=== PATIENT | female | born 1935 | race Caucasian/White ===

== ENCOUNTER 2020-12-25 11:44 | Outpatient (REF) | payer MEDICARE, SELFPAY ==
--- NOTE | ~2020-12-25 | XR_ITS ---
EXAMINATION: XR HIP, RIGHT CLINICAL INFORMATION: Pain in right hip COMPARISON: None TECHNIQUE: Two views of the right hip. FINDINGS: Mild right acetabular sclerosis. Mild axial joint space narrowing. No fracture or dislocation. There is degenerative arthrosis of the pubic symphysis. Vascular calcifications are present. There is spurring and sclerosis of the right sacroiliac joint. XR/XR hip RT min 2V IMPRESSION: No acute osseous abnormality. Degenerative changes as described above.
== END 2020-12-25 11:45 | disposition home or self-care (01) ==
LOC: HO.HMGCX 11:44
PROVIDERS: PCP Internal Medicine; Visit Provider Internal Medicine
DX: M25.551 Pain in right hip (principal)
CPT/HCPCS: 73502

== ENCOUNTER 2021-01-12 14:00 | Emergency (ER) | payer MEDICARE, SELFPAY ==
--- NOTE | ~2021-01-12 | XR_ITS ---
EXAMINATION: XR HIP, LEFT CLINICAL INFORMATION: Unable to bear weight, left hip pain. COMPARISON: 12/25/2020 TECHNIQUE: Two views of the left hip. FINDINGS: Bones and soft tissues are normal. No fracture. Alignment is anatomic. Hip joint space shows mild osteoarthritis. Moderate stool is seen in the colon. XR/XR hip LT min 2V IMPRESSION: 1. Mild osteoarthritis. No acute fracture. 2. Moderate colonic stool burden.
[2021-01-12 14:14] VITALS: BP 145/67; BP 146/70; PULSE 92; PULSE 96; RESP 18; TEMP 36.4; O2SAT 97; O2SAT 98; BMI 784.3
[2021-01-12] MEDS: Lidocaine 4 % Patch ADH..PATCH 1 PATCH TRANSDERMA (15:38)
--- NOTE | 2021-01-12 16:56 | ED_ITS ---
HPI - General Adult General Chief complaint: General Medical Stated complaint: HIP PAIN,NO KNOWN INJURY,PT NONVERBAL Time Seen by Provider: 01/12/21 14:27 Source: patient and family Mode of arrival: ambulatory Limitations: other (Deaf mute) History of Present Illness HPI narrative: Patient comes to emergency room accompanied by her daughter. Patient is deaf mute, states she does not want an contract specialist, would like her daughter to interpret. Patient is complaining of left-sided hip pain for the last 2 days. Patient states as long as she does not bear weight, it does not hurt. At this time since she is sitting, states it does not hurt. Towards the end of December, patient had a similar episode on the right hip, x-rays were negative, pain improved with ibuprofen. However, this time patient is not improving with ibuprofen. The daughter states that patient is not allowed to take Tylenol because patient had an accidental overdose of Tylenol but last year. Patient denies fever or chills, no redness or joint swelling MD complaint: Left hip pain Related Data Home Medications Medication Instructions Recorded Confirmed alendronate 70 mg tablet 70 mg PO QWEEK 12/25/20 amlodipine 10 mg tablet 10 mg PO DAILY 12/25/20 enalapril maleate 20 mg tablet 20 mg PO BID 12/25/20 levothyroxine 88 mcg tablet 88 mcg PO DAILY 12/25/20 Previous Rx's Medication Instructions Recorded lidocaine 5 % topical patch 1 patch TOPICAL DAILY #30 ea 12/25/20 tramadol 50 mg PO Q8H PRN #10 tab 01/12/21 Allergies Allergy/AdvReac Type Severity Reaction Status Date / Time No Known Allergies Allergy Verified 01/12/21 14:14 [No Known Allergies*] Review of Systems Review of Systems: Constitutional : No Weight loss, No Fever, No Chills, No Night Sweats, No Fatigue, No Malaise ENT/Mouth : No Hearing loss, No Ear Pain, No Nasal Congestion, No Sinus Pain, No Hoarseness, No sore throat, No Rhinorrhea, No Swallowing Difficulty Eyes: No Eye Pain, No Swelling, No Redness, No Foreign Body, No Discharge, No Vision Changes Cardiovascular : No Chest Pain, No SOB, No Dyspnea on Exertion, No Orthopnea, No Edema, No Palpitations Respiratory : No Cough, No Sputum, No Wheezing, No Smoke Exposure, No Dyspnea Gastrointestinal : No Nausea, No Vomiting, No Diarrhea, No Constipation, No abdominal Pain, No Hematochezia, No Melena Genitourinary : no irregular bleeding, No Dysuria, No Urinary Frequency, No Hematuria, No Urinary Incontinence, No Urgency, No Flank Pain, No Urinary Flow Changes, No Hesitancy Musculoskeletal : Complaining of left hip pain, No Myalgias, No Joint Swelling Skin : No Skin Lesions, No rash Neuro : No Weakness, No Numbness, No Paresthesias, No Loss of Consciousness, No Dizziness, No Headache Psych : No Anxiety/Panic, No Depression, No SI/HI/AH/VH, No Social Issues, Heme/Lymph: No Bruising, No Bleeding,No Lymphadenopathy Endocrine : No Polyuria, No Polydipsia, No Temperature Intolerance [facility] Past Medical History Medical History Acquired hypothyroidism Dyslipidemia Essential hypertension Osteoporosis Right hip pain Surgical History History of hernia repair History of hysterectomy Family History Family History Father Myocardial infarction CVD (cardiovascular disease) Mother Unknown family medical history Son No problems noted. Son No problems noted. Daughter No problems noted. Social History Social History Alcohol intake: never Smoking Status: Never smoker Advance Directives: No Advance Directives Information Provided: Yes Physical Exam Vital Signs: Vital Signs: Last Vital Signs Temp 97.6 F 01/12/21 14:14 Pulse 96 01/12/21 14:14 Resp 18 01/12/21 14:14 BP 145/67 H 01/12/21 14:14 Pulse Ox 98 01/12/21 14:14 Body Mass Index 784.3 Appearance: Alert. Oriented X3. No acute distress. Eyes: Pupils equal, round and reactive to light. ENT: Pharynx normal. Neck: Normal inspection. Neck supple. No lymph nodes noted. No crepitus CVS: Normal heart rate and rhythm. Pulses normal. Normal S1 and S2 Respiratory: No respiratory distress. Breath sounds normal. No Wheezing. No rales Abdomen: Soft and nontender. No rigidity. No distention. good BS x4 Skin: Skin warm and dry. Normal skin color. Normal skin turgor. Extremities: Chronic +3 pitting edema, no changes from baseline. Patient is able to flex and extend hip, knees, ankles, no pain with rotation at the hip. Pain is reproducible only when standing. Neuro: Oriented X 3. No motor deficit. No sensory deficit. Moving all extermities. No slurred speech. Course Course Course Narrative: I discussed with the patient her x-ray, no fracture. Case Management/PT services offered, declined by patient and her daughter, patient s tates that she would like to go home, patient feeling better since the Lidoderm patch was applied. Patient was given the option of trying tramadol which she accepted Medical Decision Making Imaging Data Hip x-ray: Radiologist's impression: Bones and soft tissues are normal. No fracture. Alignment is anatomic. Hip joint space shows mild osteoarthritis. Moderate stool is seen in the colon. XR/XR hip LT min 2V IMPRESSION: 1. Mild osteoarthritis. No acute fracture. 2. Moderate colonic stool burden. Discharge Plan Discharge Clinical Impression: Osteoarthritis Qualifiers: Osteoarthritis location: hip Osteoarthritis type: unspecified Laterality: left Qualified Code(s): M16.12 - Unilateral primary osteoarthritis, left hip Patient Disposition: Home, Self-Care Instructions: Osteoarthritis (ED), Hip Pain (ED) Additional Instructions: Please follow-up with your primary care physician tomorrow. If you have any worsening or new symptoms, please return to the emergency room or call 911 Prescriptions: New tramadol 50 mg tablet 50 mg PO Q8H PRN (Reason: pain) Qty: 10 RF: 0 No Action amlodipine 10 mg tablet 10 mg PO DAILY RF: 0 levothyroxine 88 mcg tablet 88 mcg PO DAILY RF: 0 alendronate 70 mg tablet 70 mg PO QWEEK RF: 0 enalapril maleate 20 mg tablet 20 mg PO BID RF: 0 lidocaine 5 % adhesive patch,medicated 1 patch topical DAILY Qty: 30 RF: 0
--- NOTE | 2021-01-12 17:15 | PC.NURSE ---
ambuklatory to br with walker. rn assisting with change in position to standing. stable with walker.
[2021-01-12] MEDS: traMADoL HCL 50 MG TABLET PO (18:08)
[2021-01-12 19:31] VITALS: BP 135/60; PULSE 90; RESP 18; TEMP 36.1; O2SAT 98
== END 2021-01-12 19:32 | disposition home or self-care (01) ==
PROVIDERS: Emergency Provider Emergency Medicine
DX: M16.12 Unilateral primary osteoarthritis, left hip (principal); M25.552 Pain in left hip; Z79.899 Other long term (current) drug therapy
CPT/HCPCS: 73502; 99283; 99284

== ENCOUNTER 2021-01-15 02:17 | Inpatient (IN) | payer MEDICARE, SELFPAY ==
[2021-01-15] VITALS (9 sets, daily range): BP systolic 125–178; BP diastolic 56–84; PULSE 99–111; RESP 15–19; TEMP 36–36.8; O2SAT 93–98; BMI 22.1
--- NOTE | ~2021-01-15 | FL_ITS ---
EXAMINATION: XR FLUOROSCOPY WITH IMAGES CLINICAL INFORMATION: Right hip fracture COMPARISON: None. TECHNIQUE: Fluoroscopy performed by Dr. Carlos Alberto Mai. Fluoroscopy time: 2 minutes DAP: 0.461 mGycm2 Images: 4 FINDINGS: Fluoroscopic imaging guidance made available for a procedure. Four fluoroscopic matrix views are available for review. These images show intramedullary nail and screw placement of the right proximal femur. FL/FL guidance in OR IMPRESSION: Imaging guidance for procedure. For detail regarding procedure and findings please refer to the operative report.
--- NOTE | ~2021-01-15 | US_ITS ---
EXAMINATION: US VENOUS ULTRASOUND WITH DOPPLER LOWER EXTREMITY, BILATERAL CLINICAL INFORMATION: Status post surgery. Rule out DVT. COMPARISON: None TECHNIQUE: Ultrasound of the deep veins is performed from the hip to the calf with compression sonography and color and pulse Doppler assessment. Spectral analysis with color-flow imaging is performed. FINDINGS: RIGHT: There is normal venous compression and respiratory variation and augmented flow. The visualized common femoral vein, superficial femoral vein, profunda femoral vein, popliteal vein, and the trifurcation region shows no evidence of deep venous thrombosis. There is no significant popliteal fossa cyst. No popliteal artery aneurysm. LEFT: There is normal venous compression and respiratory variation and augmented flow. The visualized common femoral vein, superficial femoral vein, profunda femoral vein, popliteal vein, and the trifurcation region shows no evidence of deep venous thrombosis. There is no significant popliteal fossa cyst. No popliteal artery aneurysm. If the patient's symptoms persist, followup ultrasound in 5 days 7 days might be of value to exclude proximal propagation from a non-visualized calf vein. US/US venous duplex LE BI IMPRESSION: No acute DVT demonstrated in the bilateral lower extremities.
--- NOTE | ~2021-01-15 | XR_ITS ---
EXAMINATION: XR RIGHT HIP WITH AP PELVIS CLINICAL INFORMATION: Fall, shortened and externally rotated, pain COMPARISON: 01/12/2021- TECHNIQUE: AP view of the pelvis and a single view of the right hip were obtained. FINDINGS: There is a mildly displaced comminuted intertrochanteric fracture of the right proximal femur with slight varus angulation, new as compared to prior. No additional fractures are identified. Bones are osteopenic. 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 These bony spurring is present at the anterior superior iliac spines as well as the greater trochanters. Phleboliths are present in the pelvis. No acute soft tissue abnormalities. XR/XR hip RT w PEL1V IMPRESSION: Intertrochanteric fracture of the right proximal femur with mild varus angulation.
--- NOTE | ~2021-01-15 | CT_ITS ---
EXAMINATION: CT ANGIOGRAM OF THE CHEST WITH AND WITHOUT CONTRAST (CT PULMONARY ANGIOGRAM FOR PE) CLINICAL INFORMATION: Reason for Exam tachy post surgery; r/o PE COMPARISON: None TECHNIQUE: Prior to contrast administration, noncontrast localization images were obtained. Subsequently, multidetector volumetric imaging was performed from the thoracic inlet to below the diaphragms following the administration of 65 mL Omnipaque 350 intravenous contrast. No contrast reaction reported Sagittal, coronal, and MIP oblique sagittal reformatted images were obtained on the CT workstation, uploaded to PACS, and reviewed. This CT examination was performed using dose optimization techniques as appropriate, variously including the following: *Automated exposure control *Adjustment of mA and/or kV according to patient size (this includes techniques or standardized protocols for targeted exams where dose is matched to indication/reason for exam; i.e. extremities or head) *Use of iterative reconstruction technique Total exam dose-length product 232 mGy-cm FINDINGS: QUALITY OF STUDY/CONTRAST BOLUS: Satisfactory. PULMONARY ARTERIES: No central or segmental pulmonary emboli. THORACIC AORTA: No aneurysm or dissection. Calcific atherosclerosis is present in the thoracic aorta. LUNG: No focal consolidation, nodules or masses. Mild dependent atelectasis. As seen on image 183/[id number] of series 8, there is a round 9 mm filling defect within the right upper lobe bronchus which is of uncertain etiology. Central airways are otherwise clear. PLEURA: No pleural effusion or pneumothorax. MEDIASTINUM: Normal heart size. Calcific atherosclerosis is present in the coronary arteries. There is calcification at the mitral valve annulus. No pericardial effusion. No hilar or mediastinal lymphadenopathy. No evidence of septal bowing or right heart strain. CHEST WALL/AXILLA: No axillary or internal mammary lymphadenopathy. OSSEOUS STRUCTURES: Multiple vertebral body compression fractures are present in the thoracic spine, most notably at the inferior endplate of T7 and superior endplate of T8. The superior endplate compression fracture at T12 appears unchanged as compared to prior. Bones are osteopenic. No acute rib fractures. UPPER ABDOMEN: Left parapelvic renal cyst. No acute upper abdominal abnormalities. No reflux of contrast into the hepatic veins to suggest elevated right heart pressures. CT/CT angio chest PE protocol IMPRESSION: 1. No evidence of pulmonary emboli. No acute pulmonary findings are identified. Minimal dependent atelectasis. 2. A 9 mm dense rounded structure is present within the bronchus to the right upper lobe just distal to the bifurcation. This is of uncertain etiology. A rounded focus of mucus, a rounded foreign body, or a primary endoluminal lesion could all have this appearance. Recommend bronchoscopy. 3. Multiple compression fractures in the thoracic spine which appear acute. VTE: negative
--- NOTE | ~2021-01-15 | XR_ITS ---
EXAMINATION: XR CHEST CLINICAL INFORMATION: Cough COMPARISON: Chest radiograph dated 08/03/2010 TECHNIQUE: Frontal view of the chest was obtained. FINDINGS: Lungs are clear. No consolidation, pneumothorax, or pleural effusion. Cardiomediastinal contour is normal. Pulmonary vasculature is normal. Degenerative spondylosis is present in the thoracic spine with chronic appearing compression deformities. Bones are osteopenic. Old healed fracture is present at the left proximal humerus. Osteoarthritis is present in the acromioclavicular and glenohumeral joints. XR/XR chest 1V IMPRESSION: No acute pulmonary findings.
--- NOTE | 2021-01-15 02:40 | ECG_ITS ---
Test Reason : FALL Blood Pressure : / mmHG Vent. Rate : 102 BPM Atrial Rate : 102 BPM P-R Int : 000 ms QRS Dur : 062 ms QT Int : 332 ms P-R-T Axes : 000 -18 046 degrees QTc Int : 432 ms Normal sinus rhythm with frequent Premature atrial complexes Cannot rule out Anterior infarct , age undetermined Abnormal ECG When compared with ECG of 09-SEP-2017 13:08, Criteria for Inferior infarct are no longer Present Referred By: Kera He Electronically Signed By:KAREN ALEXANDER MD
--- NOTE | 2021-01-15 02:49 | ED.FALL ---
HPI - Fall General Chief Complaint: Fall Stated Complaint: fall/r hip pain Time Seen by Provider: 01/15/21 02:39 Source: patient Mode of arrival: EMS History of Present Illness HPI Narrative: This is an 85-year-old female with past medical history of hypertension, hypothyroid, osteoporosis and deafness who presents via EMS after stain and a mechanical fall whereby the patient states she slipped in some urine. She denies hitting her head or loss of consciousness but landed on her bottom. Her grandson who was present came in and attempted to assist the patient to a standing position, however she was having pain. Patient denies any recent fevers, chills, dizziness, nausea, vomiting, shortness of breath or chest pain. She only reports pain at the right hip. Awaiting ASL Related Data Home Medications Medication Instructions Recorded Confirmed alendronate 70 mg tablet 70 mg PO QWEEK 12/25/20 01/15/21 amlodipine 10 mg tablet 10 mg PO DAILY 12/25/20 01/15/21 enalapril maleate 20 mg tablet 20 mg PO BID 12/25/20 01/15/21 levothyroxine 88 mcg tablet 88 mcg PO DAILY 12/25/20 01/15/21 tramadol 50 mg PO Q8H PRN 01/15/21 01/15/21 Previous Rx's Medication Instructions Recorded nabumetone 500 mg tablet 500 mg PO BID PRN #14 tab 01/14/21 Allergies Allergy/AdvReac Type Severity Reaction Status Date / Time No Known Allergies Allergy Verified 01/12/21 14:14 [No Known Allergies*] Review of Systems Review of Systems: Pertinent positives and negatives as stated in HPI 10 point review of systems is otherwise negative. [facility] Past Medical History Source: nursing notes reviewed Medical History Acquired hypothyroidism Dyslipidemia Essential hypertension Osteoporosis Right hip pain Surgical History History of hernia repair History of hysterectomy Family History Family History Father Myocardial infarction CVD (cardiovascular disease) Mother Unknown family medical history Son No problems noted. Son No problems noted. Daughter No problems noted. Social History Social History Alcohol intake: never Smoking Status: Never smoker Advance Directives: No Physical Exam Vital Signs: Vital Signs: Last Vital Signs Temp 98.3 F 01/15/21 02:23 Pulse 106 H 01/15/21 04:00 Resp 18 01/15/21 04:00 BP 148/70 H 01/15/21 04:00 Pulse Ox 93 01/15/21 04:00 Body Mass Index 22.1 VITAL SIGNS: Reviewed. GENERAL: Well developed, well nourished, in no acute distress. HEAD: Normocephalic/atraumatic EYES: PERRLA, EOMI intact without pain, no nystagmus OROPHARYNX: no oral lesions noted, posterior pharynx clear NECK: Supple, no adenopathy LUNGS: Normal breath sounds. No adventitious sounds or accessory muscle use. SpO2<95> CARDIOVASCULAR: Regular rate and rhythm without noted murmurs ABDOMEN: Soft, non-tender, non-distended with bowel sounds. RIGHT LOWER EXTREMITY: The right lower extremity is noted to be shortened and externally rotated, palpable DP/PT with capillary refill less than 3 seconds and otherwise sensory intact. There is pain on palpation over the proximal leg and into the right hip area. SKIN: Inspection of the skin reveals no rashes NEUROLOGIC: Alert and oriented x 4. Strength and sensation to light touch were grossly intact x 4. Course Course Course Narrative: This is an 85-year-old female with history and clinical presentation most distant with hip fractures secondary to mechanical fall. Patient was provided with combination analgesics Tylenol and Toradol. On review of all investigation patient is noted to have a UTI, and EKG demonstrates new onset atrial fibrillation with RVR which is a new finding on comparison with prior EKG from 2017. On review of x-rays there is a right intertrochanteric fracture. This case was discussed with the inpatient hospitalist team as well as Orthopedics. MDM - Fall Lab Data Result diagrams: 01/15/21 02:48 01/15/21 03:52 Labs: Lab Results 01/15/21 01/15/21 01/15/21 Range/Units 02:48 02:48 03:51 WBC 10.1 (4.8-10.8) X10*3/uL RBC 5.06 (4.20-5.50) X10*6/uL Hgb 14.9 (12.0-16.0) g/dl Hct 44.4 (37-47) % MCV 87.7 (80-98) fL MCH 29.4 (27.0-33.0) pg MCHC 33.6 (31.0-35.0) g/dl RDW 12.5 (11.0-16.0) % Plt Count 241 (160-400) X10*3/uL MPV 9.8 (9.4-12.3) fL Immature Gran % (Auto) 0.6 H (0.0-0.4) % Neut % (Auto) 72.7 (45-73) % Lymph % (Auto) 17.8 L (20-40) % [place] % (Auto) 8.0 (2-11) % Eos % (Auto) 0.6 (0-4) % Baso % (Auto) 0.3 (0-2) % Lymph # (Auto) 1.8 (1.2-4.9) X10*3/uL [place] # (Auto) 0.8 (0.1-1.2) X10*3/uL Eos # (Auto) 0.1 (0.0-0.4) X10*3/uL Baso # (Auto) 0.0 (0.0-0.2) X10*3/uL Abs Immat Gran (auto) 0.06 H (0.00-0.03) X10*3/uL Absolute Neuts (auto) 7.3 (2.0-8.3) X10*3/uL Absolute Nucleated RBC 0.000 (0.0-0.012) X10*3/uL Nucleated RBC % (auto) 0.0 (0.0-0.2) /100WBC PT 11.8 (10.8-13.0) SEC INR 1.0 (0.9-1.1) Sodium (135-145) mmol/L Potassium (3.3-5.1) mmol/L Chloride (96-108) mmol/L Carbon Dioxide (22-29) mmol/L Anion Gap (12-20) BUN (9-16) mg/dL Creatinine (0.5-1.4) mg/dL Estim Creat Clear Calc Estimated GFR Random Glucose (60-115) mg/dL Calcium (8.4-10.2) mg/dL Total Bilirubin (0.0-1.0) mg/dL AST (5-31) U/L ALT (0-31) U/L Alkaline Phosphatase (39-117) U/L Total Protein (6.5-8.0) g/dL Albumin (3.5-5.0) g/dL Urine Color YELLOW Urine Appearance HAZY Urine pH 6.5 (5.0-8.0) Ur Specific [place] 1.010 (1.005-1.025) Urine Protein NEG (NEG-TRACE) MG/DL Urine Glucose (UA) NEG (NEG) MG/DL Urine Ketones NEG (NEG) MG/DL Urine Blood TRACE (NEG) Urine Nitrite NEG (NEG) Ur Leukocyte Esterase 2+ H (NEG) Urine RBC 0-2 (0) /HPF Urine WBC 5-9 H (0-4) /HPF Ur Squamous Epith Cells 1+ /LPF Urine Bacteria 4+ /LPF COVID-19 (BASHIR) (Negative) COVID-19 Clin Com Blood Type 01/15/21 01/15/21 01/15/21 Range/Units 03:52 03:52 04:12 WBC (4.8-10.8) X10*3/uL RBC (4.20-5.50) X10*6/uL Hgb (12.0-16.0) g/dl Hct (37-47) % MCV (80-98) fL MCH (27.0-33.0) pg MCHC (31.0-35.0) g/dl RDW (11.0-16.0) % Plt Count (160-400) X10*3/uL MPV (9.4-12.3) fL Immature Gran % (Auto) (0.0-0.4) % Neut % (Auto) (45-73) % Lymph % (Auto) (20-40) % [place] % (Auto) (2-11) % Eos % (Auto) (0-4) % Baso % (Auto) (0-2) % Lymph # (Auto) (1.2-4.9) X10*3/uL [place] # (Auto) (0.1-1.2) X10*3/uL Eos # (Auto) (0.0-0.4) X10*3/uL Baso # (Auto) (0.0-0.2) X10*3/uL Abs Immat Gran (auto) (0.00-0.03) X10*3/uL Absolute Neuts (auto) (2.0-8.3) X10*3/uL Absolute Nucleated RBC (0.0-0.012) X10*3/uL Nucleated RBC % (auto) (0.0-0.2) /100WBC PT (10.8-13.0) SEC INR (0.9-1.1) Sodium 138 (135-145) mmol/L Potassium 3.7 (3.3-5.1) mmol/L Chloride 104 (96-108) mmol/L Carbon Dioxide 24 (22-29) mmol/L Anion Gap 14 (12-20) BUN 15 (9-16) mg/dL Creatinine 0.65 (0.5-1.4) mg/dL Estim Creat Clear Calc 56.6 Estimated GFR > 60 Random Glucose 150 H (60-115) mg/dL Calcium 9.1 (8.4-10.2) mg/dL Total Bilirubin 1.2 H (0.0-1.0) mg/dL AST 15 (5-31) U/L ALT 21 (0-31) U/L Alkaline Phosphatase 115 (39-117) U/L Total Protein 6.6 (6.5-8.0) g/dL Albumin 4.0 (3.5-5.0) g/dL Urine Color Urine Appearance Urine pH (5.0-8.0) Ur Specific [place] (1.005-1.025) Urine Protein (NEG-TRACE) MG/DL Urine Glucose (UA) (NEG) MG/DL Urine Ketones (NEG) MG/DL Urine Blood (NEG) Urine Nitrite (NEG) Ur Leukocyte Esterase (NEG) Urine RBC (0) /HPF Urine WBC (0-4) /HPF Ur Squamous Epith Cells /LPF Urine Bacteria /LPF COVID-19 (BASHIR) Negative (Negative) COVID-19 Clin Com See Note Blood Type B Positive Discharge Plan Discharge Clinical Impression: Atrial fibrillation, new onset Intertrochanteric fracture of right femur Qualifiers: Encounter type: initial encounter Fracture type: closed Fracture alignment: nondisplaced Qualified Code(s): S72.144A - Nondisplaced intertrochanteric fracture of right femur, initial encounter for closed fracture Patient Disposition: Admitted As Inpatient
[2021-01-15 02:53] LABS: MANUAL DIFF FLAG NO
[2021-01-15 02:54] LABS: Basophils Percent Auto 0.3 % (0-2); Eosinophils Absolute Auto 0.1 X10*3/uL (0.0-0.4); Eosinophils Percent Auto 0.6 % (0-4); Hematocrit 44.4 % (37-47); Hemoglobin 14.9 g/dl (12.0-16.0); Imm Gran Abs Auto 0.06 X10*3/uL (0.00-0.03); Imm Gran Pct Auto 0.6 % (0.0-0.4); Lymphocytes Absolute Auto 1.8 X10*3/uL (1.2-4.9); Lymphocytes Percent Auto 17.8 % (20-40); Mean Corpuscular HGB Conc 33.6 g/dl (31.0-35.0); Mean Corpuscular Hemoglobin 29.4 pg (27.0-33.0); Mean Corpuscular Volume 87.7 fL (80-98); Mean Platelet Volume 9.8 fL (9.4-12.3); Monocytes Absolute Auto 0.8 X10*3/uL (0.1-1.2); Neutrophils Absolute Auto 7.3 X10*3/uL (2.0-8.3); Neutrophils Percent Auto 72.7 % (45-73); Platelet Count 241 X10*3/uL (160-400); Red Blood Count 5.06 X10*6/uL (4.20-5.50); Red Cell Distribution Width 12.5 % (11.0-16.0); White Blood Count 10.1 X10*3/uL (4.8-10.8)
[2021-01-15 02:59] LABS: Prothrombin Time 11.8 SEC (10.8-13.0)
--- NOTE | 2021-01-15 03:30 | PC.NURSE ---
3 attempts to use my6sense for asl. no gas burner operator is available.
[2021-01-15] MEDS: Acetaminophen 325 MG TABLET 975 MG PO (03:31)
[2021-01-15] MEDS: Ketorolac Tromethamine 15 MG/ML VIAL IVPUSH (03:32)
[2021-01-15 04:05] LABS: Glucose Urine UA NEG (NEG); Leukocyte Esterase Urine 2+ (NEG); Nitrite Urine NEG (NEG); PH 6.5 (5.0-8.0); UACC Culture Trigger YES; Urine Blood TRACE (NEG); Urine Ketones NEG (NEG); Urine Protein NEG (NEG-TRACE)
[2021-01-15 04:06] LABS: Appearance Urine HAZY; Color Urine YELLOW
[2021-01-15 04:12] LABS: Bacteria Urine 4+ /LPF; RBC Urine 0-2 /HPF (0); Squamous Epithelial Cell Urine 1+ /LPF
[2021-01-15 04:14] LABS: COVID-19 Test Negative (Negative); IDNOW Serial# 9DD0AD1C
[2021-01-15 04:35] LABS: Alanine Aminotransferase 21 U/L (0-31); Alkaline Phosphatase 115 U/L (39-117); Anion Gap 14 (12-20); Aspartate Amino Transferase 15 U/L (5-31); Bilirubin Total 1.2 mg/dL (0.0-1.0); Blood Urea Nitrogen 15 mg/dL (9-16); Calcium 9.1 mg/dL (8.4-10.2); Carbon Dioxide 24 mmol/L (22-29); Chloride 104 mmol/L (96-108); Creatinine Clr Calc Pharmacy 56.6; Estimated Glomerular Filt Rate > 60; Glucose Random 150 mg/dL (60-115); Potassium 3.7 mmol/L (3.3-5.1); Sodium 138 mmol/L (135-145); Total Protein 6.6 g/dL (6.5-8.0)
--- NOTE | 2021-01-15 04:51 | PM.IMHP ---
History of Present Illness Date of Service: 01/15/21 <Galo Cooley MD - Last Filed: 01/15/21 04:58> Chief Complaint: Hip pain <Galo Cooley MD - Last Filed: 01/15/21 04:58> 85-year-old female with a past medical history of hypertension, hyperlipidemia, hypothyroidism, osteoporosis, only speaks by sign language; presented to the hospital with a chief complaint of fall. Reportedly she was going to the bathroom and subsequently slipped and fell on her bottoms denied any head strike or loss of consciousness. Denies any fever chills cough. Denies any chest pain lightheadedness dizziness. Denies any nausea vomiting diarrhea. Patient speaks by sign language. Patient's daughter at the bedside helped in interpretation. Per daughter patient has been gradually declining over the past 1 year. Uses a walker at home to walk. Review of all other systems is negative except mentioned above ER course: Per ER team patient urinalysis abnormal consistent with UTI; EKG showed new onset AFib, rate controlled. Hip x-ray showed right femur intertrochanteric fracture. Spoke to Orthopedics, recommended admission to Medicine, will be evaluated in the morning. <Galo Cooley MD - Last Filed: 01/15/21 04:58> [facility] Medical History: Medical History Acquired hypothyroidism Dyslipidemia Essential hypertension Osteoporosis Right hip pain <Galo Cooley MD - Last Filed: 01/15/21 04:58> Family History: Family History Father Myocardial infarction CVD (cardiovascular disease) Mother Unknown family medical history Son No problems noted. Son No problems noted. Daughter No problems noted. <Galo Cooley MD - Last Filed: 01/15/21 04:58> Surgical History: Surgical History History of hernia repair History of hysterectomy <Galo Cooley MD - Last Filed: 01/15/21 04:58> Social History: Social History Alcohol intake: never Smoking Status: Current some day smoker Use of substances other than those prescribed or required for medical reasons: No Currently Displaying Signs/Symptoms of Drug Intoxication Withdrawal: No Advance Directives: No Do you have thoughts of harming others: None Do you have a plan to hurt others: No Plan service: No Current occupational status: retired <Galo Cooley MD - Last Filed: 01/15/21 04:58> Meds Allergies/Adverse reactions: Allergies Allergy/AdvReac Type Severity Reaction Status Date / Time No Known Allergies Allergy Verified 01/12/21 14:14 [No Known Allergies*] <Galo Cooley MD - Last Filed: 01/15/21 04:58> Active Medications: Current Medications Generic Name Dose Route Start Last Admin Trade Name Freq PRN Reason Stop Dose Admin Acetaminophen 650 mg 01/15/21 04:45 Acetaminophen 325 Mg Tablet PO Q6H PRN Pain, Mild (Pain Scale 1-3) Alendronate Sodium 70 mg 01/15/21 05:00 Alendronate Sodium 70 Mg Tablet PO QWEEK [facility] Amlodipine Besylate 10 mg 01/15/21 09:00 Amlodipine Besylate 10 Mg Tablet PO DAILY [facility] Protocol Enalapril Maleate 20 mg 01/15/21 09:00 Enalapril Maleate 10 Mg Tablet PO BID [facility] Protocol Heparin Sodium (Porcine) 5,000 unit 01/15/21 04:45 Heparin Sodium,Porcine 5,000 Unit/Ml Vial SUBCUT Q8H [facility] Ceftriaxone Sodium 1 gm/ 50 mls @ 100 mls/hr 01/15/21 04:26 Sodium Chloride IV 01/15/21 04:55 ONCE ONE Ceftriaxone Sodium 1 gm/ 50 mls @ 100 mls/hr 01/15/21 04:45 Sodium Chloride IV Q24H [facility] Levothyroxine Sodium 88 mcg 01/15/21 09:00 Levothyroxine Sodium 88 Mcg Tablet PO DAILY [facility] Oxycodone HCl 5 mg 01/15/21 04:45 Oxycodone Hcl Immed Release 5 Mg Tablet PO Q6H PRN Pain, Severe (Pain Scale 7-10) Sodium Chloride 3 ml 01/15/21 08:00 0.9 % Sodium Chloride Flush 3 Ml Syringe IVFLUSH QSHIFT [facility] <Galo Cooley MD - Last Filed: 01/15/21 04:58> Home medications: Home Medications Medication Instructions Recorded Confirmed Last Taken Type alendronate 70 mg tablet 70 mg PO QWEEK 12/25/20 01/15/21 Unknown History amlodipine 10 mg tablet 10 mg PO DAILY 12/25/20 01/15/21 Unknown History enalapril maleate 20 mg tablet 20 mg PO BID 12/25/20 01/15/21 Unknown History levothyroxine 88 mcg tablet 88 mcg PO DAILY 12/25/20 01/15/21 Unknown History tramadol 50 mg PO Q8H PRN 01/15/21 01/15/21 Unknown History <Galo Cooley MD - Last Filed: 01/15/21 04:58> Physical Exam Vital Signs and Narrative: Vital Signs: Last Vital Signs Temp 98.3 F 01/15/21 02:23 Pulse 106 H 01/15/21 04:00 Resp 18 01/15/21 04:00 BP 148/70 H 01/15/21 04:00 Pulse Ox 93 01/15/21 04:00 Body Mass Index 22.1 <Galo Cooley MD - Last Filed: 01/15/21 04:58> Gen: Appears be in no acute distress HEENT: NCAT, Moist mucosa. Pulmonary: Vesicular breath sounds, fair air entry CVS: Normal S1-S2 Abdomen: BS+, Soft, Nontender Extremities: Warm well perfused; noted peripheral edema-chronic per family.; right hip exam limited secondary to the pain. Neuro: Alert and awake.; able to move the legs; sensation intact. <Galo Cooley MD - Last Filed: 01/15/21 04:58> Results Labs CBC and Chem 7: : 01/15/21 08:27 01/15/21 08:27 <Galo Cooley MD - Last Filed: 01/15/21 04:58> Labs: Laboratory Results - last 24 hr 01/15/21 01/15/21 01/15/21 02:48 02:48 03:51 MCV 87.7 MCH 29.4 MCHC 33.6 RDW 12.5 Plt Count 241 MPV 9.8 Immature Gran % (Auto) 0.6 H Neut % (Auto) 72.7 Lymph % (Auto) 17.8 L [place] % (Auto) 8.0 Eos % (Auto) 0.6 Baso % (Auto) 0.3 Lymph # (Auto) 1.8 [place] # (Auto) 0.8 Eos # (Auto) 0.1 Baso # (Auto) 0.0 Abs Immat Gran (auto) 0.06 H Absolute Neuts (auto) 7.3 Absolute Nucleated RBC 0.000 Nucleated RBC % (auto) 0.0 PT 11.8 INR 1.0 Anion Gap Estim Creat Clear Calc Estimated GFR Random Glucose Calcium Total Bilirubin AST ALT Alkaline Phosphatase Total Protein Albumin Urine Color YELLOW Urine Appearance HAZY Urine pH 6.5 Ur Specific [place] 1.010 Urine Protein NEG Urine Glucose (UA) NEG Urine Ketones NEG Urine Blood TRACE Urine Nitrite NEG Ur Leukocyte Esterase 2+ H Urine RBC 0-2 Urine WBC 5-9 H Ur Squamous Epith Cells 1+ Urine Bacteria 4+ COVID-19 ([facility]ASHIR) COVID-19 Clin Com Blood Type 01/15/21 01/15/21 01/15/21 03:52 03:52 04:12 MCV MCH MCHC RDW Plt Count MPV Immature Gran % (Auto) Neut % (Auto) Lymph % (Auto) [place] % (Auto) Eos % (Auto) Baso % (Auto) Lymph # (Auto) [place] # (Auto) Eos # (Auto) Baso # (Auto) Abs Immat Gran (auto) Absolute Neuts (auto) Absolute Nucleated RBC Nucleated RBC % (auto) PT INR Anion Gap 14 Estim Creat Clear Calc 56.6 Estimated GFR > 60 Random Glucose 150 H Calcium 9.1 Total Bilirubin 1.2 H AST 15 ALT 21 Alkaline Phosphatase 115 Total Protein 6.6 Albumin 4.0 Urine Color Urine Appearance Urine pH Ur Specific [place] Urine Protein Urine Glucose (UA) Urine Ketones Urine Blood Urine Nitrite Ur Leukocyte Esterase Urine RBC Urine WBC Ur Squamous Epith Cells Urine Bacteria COVID-19 (BASHIR) Negative COVID-19 Clin Com See Note Blood Type B Positive <Galo Cooley MD - Last Filed: 01/15/21 04:58> Imaging Radiologist's Impressions: Impressions Hip/Pelvis X-Ray 01/15/21 02:39 IMPRESSION: Intertrochanteric fracture of the right proximal femur with mild varus angulation. Chest X-Ray 01/15/21 02:40 IMPRESSION: No acute pulmonary findings. <Galo Cooley MD - Last Filed: 01/15/21 04:58> Assessment and Plan (1) Intertrochanteric fracture of right femur: Qualifiers: Encounter type: initial encounter Fracture alignment: nondisplaced Fracture type: closed Qualified Code(s): S72.144A - Nondisplaced intertrochanteric fracture of right femur, initial encounter for closed fracture <Galo Cooley MD - Last Filed: 01/15/21 04:58> Status: Acute <Galo Cooley MD - Last Filed: 01/15/21 04:58> 85-year-old female with a past medical history of hypertension, hyperlipidemia, hypothyroidism, osteoporosis presented to the hospital with a chief complaint of fall. Noted to have Right femur intertrochanteric fracture: Neurovascularly intact. Bedrest. Fall precautions. Ortho consult made aware. Preop eval: Patient is moderate risk to high risk for moderate risk surgery. New onset AFib: Cardiology consulted. Will obtain echocardiogram. Telemetry. Cycle cardiac enzymes. Will defer to the Cardiology in regards anticoagulation decision. UTI: Continue ceftriaxone. Follow up cultures. Hypertension/hyperlipidemia: Continue home medications. Hypothyroidism: Continue levothyroxine DVT prophylaxis: Subcu heparin Code status: Full code-discussed with the patient's daughter- healthcare proxy. <Galo Cooley MD - Last Filed: 01/15/21 04:58>
[2021-01-15] MEDS: cefTRIAXone sodium 1 GM in 0.9 % Sodium Chloride 50 ML IV (04:56)
[2021-01-15 05:14] LABS: Lactic Acid 0.9 mmol/L (0.5-2.0)
--- NOTE | 2021-01-15 05:46 | PC.NURSE ---
per hospitalist patient is npo at this time.
[2021-01-15] MEDS: oxyCODONE HCl Immed Release 5 MG TABLET PO ×3 (06:46→18:25)
--- NOTE | 2021-01-15 07:22 | P.CONOP_ITS ---
History of Present Illness HPI Consult date: 01/15/21 Consult reason: joint pain and fracture Chief complaint: Hip fracture Narrative: Patient is an 85-year-old female who sustained a mechanical fall yesterday when she slipped on urine. Although the fall was unwitnessed but the patients grandson was home with her at the time. He tried to assist the patient back to standing and was unable due to pain in the right hip. She presented to the emergency room via EMS shortly afterward x-rays were obtained and she was found to have an intertrochanteric fracture of the right hip. She was admitted to the hospital on the medicine service and orthopedics was consulted. Review of Systems Review of Systems: Yes all other systems are reviewed and are negative PMFSH Past Medical History Medical History Acquired hypothyroidism Dyslipidemia Essential hypertension Osteoporosis Right hip pain Family History Family History Father Myocardial infarction CVD (cardiovascular disease) Mother Unknown family medical history Son No problems noted. Son No problems noted. Daughter No problems noted. Surgical History Surgical History History of hernia repair History of hysterectomy Social History Social History Alcohol intake: never Smoking Status: Current some day smoker Use of substances other than those prescribed or required for medical reasons: No Currently Displaying Signs/Symptoms of Drug Intoxication Withdrawal: No Advance Directives: No Do you have thoughts of harming others: None Do you have a plan to hurt others: No Plan service: No Current occupational status: retired [employer] Allergies Allergy/AdvReac Type Severity Reaction Status Date / Time No Known Allergies Allergy Verified 01/12/21 14:14 [No Known Allergies*] Active Medications: Current Medications Generic Name Dose Route Start Last Admin Trade Name Freq PRN Reason Stop Dose Admin Acetaminophen 650 mg 01/15/21 04:45 Acetaminophen 325 Mg Tablet PO Q6H PRN Pain, Mild (Pain Scale 1-3) Alendronate Sodium 70 mg 01/15/21 05:00 Alendronate Sodium 70 Mg Tablet PO .QWeek [facility] Amlodipine Besylate 10 mg 01/15/21 09:00 Amlodipine Besylate 10 Mg Tablet PO DAILY [facility] Protocol Enalapril Maleate 20 mg 01/15/21 09:00 Enalapril Maleate 10 Mg Tablet PO BID [facility] Protocol Heparin Sodium (Porcine) 5,000 unit 01/15/21 06:00 01/15/21 05:45 Heparin Sodium,Porcine 5,000 Unit/Ml Vial SUBCUT Not Given Q8H [facility] Ceftriaxone Sodium 1 gm/ 50 mls @ 100 mls/hr 01/16/21 05:00 Sodium Chloride IV Q24H [facility] Levothyroxine Sodium 88 mcg 01/15/21 06:00 Levothyroxine Sodium 88 Mcg Tablet PO DAILY@0600 [facility] Ondansetron HCl 4 mg 01/15/21 06:57 Ondansetron Hcl 4 Mg/2 Ml Vial IVPUSH Q6H PRN Nausea and Vomiting Oxycodone HCl 5 mg 01/15/21 04:45 01/15/21 06:46 Oxycodone Hcl Immed Release 5 Mg Tablet PO 5 mg Q6H PRN Administration Pain, Severe (Pain Scale 7-10) Sodium Chloride 3 ml 01/15/21 08:00 0.9 % Sodium Chloride Flush 3 M[facility] Medications Medication Instructions Recorded Confirmed Last Taken Type alendronate 70 mg tablet 70 mg PO QWEEK 12/25/20 01/15/21 Unknown History amlodipine 10 mg tablet 10 mg PO DAILY 12/25/20 01/15/21 Unknown History enalapril maleate 20 mg tablet 20 mg PO BID 12/25/20 01/15/21 Unknown History levothyroxine 88 mcg tablet 88 mcg PO DAILY 12/25/20 01/15/21 Unknown History tramadol 50 mg PO Q8H PRN 01/15/21 01/15/21 Unknown History Physical Exam Vital Signs: Vital Signs: Last Vital Signs Temp 98.3 F 01/15/21 02:23 Pulse 104 H 01/15/21 04:45 Resp 18 01/15/21 04:45 BP 148/70 H 01/15/21 04:00 Pulse Ox 95 01/15/21 04:45 Body Mass Index 22.1 Const: General: cooperative, healthy appearing, comfortable, no acute distress, well developed, alert and awake Orientation/consciousness: patient oriented x3 HENMT: Head: Yes normal to inspection, Yes normocephalic and Yes atraumatic Eyes: General: appearance normal, both eyes and all related structures Neck: Neck: Yes normal visual inspection and Yes no lymphadenopathy Resp: Effort & Inspection: normal respiratory effort Cardio: Peripheral pulses: Peripheral pulses 2+ throughout GI: Inspection: Yes normal to inspection Palpation (GI): Soft to palpation Skin: General skin exam: no rashes or lesions noted Neuro: General: patient oriented x3 Extrem: Other: Right hip no gross deformity. Skin intact. No ecchymosis, redness, or lesions. Unable to participate in AROM. Pain with log roll. Leg is shorted and externally rotated. sensation intact. Pedal pulse intact. Psych: Mental Status: mental status grossly normal Results Labs Result Diagrams: 01/15/21 08:27 01/15/21 08:27 Labs: Abnormal lab results 01/15/21 01/15/21 01/15/21 Range/Units 02:48 03:51 03:52 Immature Gran % (Auto) 0.6 H (0.0-0.4) % Lymph % (Auto) 17.8 L (20-40) % Abs Immat Gran (auto) 0.06 H (0.00-0.03) X10*3/uL Random Glucose 150 H (60-115) mg/dL Total Bilirubin 1.2 H (0.0-1.0) mg/dL Ur Leukocyte Esterase 2+ H (NEG) Urine WBC 5-9 H (0-4) /HPF H & H 01/15/21 Range/Units 02:48 Hgb 14.9 (12.0-16.0) g/dl Hct 44.4 (37-47) % Coagulation 01/15/21 Range/Units 02:48 INR 1.0 (0.9-1.1) All other labs normal. Assessment and Plan (1) Intertrochanteric fracture of right femur: Qualifiers: Encounter type: initial encounter Fracture alignment: nondisplaced Fracture type: closed Qualified Code(s): S72.144A - Nondisplaced intertrochanteric fracture of right femur, initial encounter for closed fracture Status: Acute I discussed the case with Dr Munoz and explained the extent of the injury to the patient and options available which include surgical intervention. I explained the procedure in detail along with the length of recovery and rehab course. I explained the risk, benefits and alternatives. Risk including, but not limited to infection, blood clots, bleeding, non union or malunion and nerve/tissue damage to surrounding areas. I answered all their questions and wi th their understanding they have consented to move forward with Operative Fixation of the Right hip. The patient will be T&S, med clearance obtained and NPO after midnight.
[2021-01-15] MEDS: Levothyroxine Sodium 88 MCG TABLET PO (07:38)
[2021-01-15] MEDS: ondansetron HCL 4 MG/2 ML VIAL IVPUSH (07:38)
[2021-01-15] MEDS: 0.9 % Sodium Chloride Flush 3 ML SYRINGE IVFLUSH ×3 (07:44→23:22)
--- NOTE | 2021-01-15 07:45 | PC.NURSE ---
Patient alert, responsive. Communicates with ASL, Daughter at bedside. Pt medicated with zofran for slight nausea. Family verbalizes understanding of current plan to admit to hospital. will continue to monitor.
[2021-01-15 08:32] LABS: MANUAL DIFF FLAG NO
[2021-01-15 08:33] LABS: Basophils Percent Auto 0.2 % (0-2); Eosinophils Percent Auto 0.1 % (0-4); Hematocrit 40.9 % (37-47); Hemoglobin 13.5 g/dl (12.0-16.0); Imm Gran Abs Auto 0.07 X10*3/uL (0.00-0.03); Imm Gran Pct Auto 0.6 % (0.0-0.4); Lymphocytes Absolute Auto 1.4 X10*3/uL (1.2-4.9); Lymphocytes Percent Auto 11.5 % (20-40); Mean Corpuscular Hemoglobin 29.2 pg (27.0-33.0); Mean Corpuscular Volume 88.5 fL (80-98); Mean Platelet Volume 9.8 fL (9.4-12.3); Monocytes Absolute Auto 1.1 X10*3/uL (0.1-1.2); Monocytes Percent Auto 8.5 % (2-11); Neutrophils Absolute Auto 9.8 X10*3/uL (2.0-8.3); Neutrophils Percent Auto 79.1 % (45-73); Platelet Count 249 X10*3/uL (160-400); Red Blood Count 4.62 X10*6/uL (4.20-5.50); Red Cell Distribution Width 12.5 % (11.0-16.0); White Blood Count 12.3 X10*3/uL (4.8-10.8)
[2021-01-15 08:55] LABS: Anion Gap 14 (12-20); Blood Urea Nitrogen 14 mg/dL (9-16); Calcium 8.9 mg/dL (8.4-10.2); Carbon Dioxide 24 mmol/L (22-29); Chloride 105 mmol/L (96-108); Creatinine Clr Calc Pharmacy 54.9; Estimated Glomerular Filt Rate > 60; Glucose Random 199 mg/dL (60-115); Potassium 3.7 mmol/L (3.3-5.1); Sodium 139 mmol/L (135-145)
--- NOTE | 2021-01-15 09:30 | CA_ITS ---
Transthoracic Echocardiogram Patient (Last, First, Middle): Parent, Rupa, Gender: Female Date of : 1935 Age: 85 Procedure Date: 01/15/2021 Procedure Type: Transthoracic Echocardiogram Location: [facility] Height: 162.56 cm Weight: 58.51 kg BSA: 1.62 m2 Heart Rate: bpm BP: 148 / 70 mmHg Transcribing Machine Operator: Referring MD: Galo Cooley MD Printing Screen Assembler: Mike Phipps MD Symptoms: new afib Study Quality: Fair ECG Rhythm: Sinus with extra beats Conclusions: - 1. Normal LV systolic function with impaired relaxation filling pattern 2. Severe mitral annular calcification with mild mitral regurgitation 3. Normal RV systolic pressure 4. No pericardial effusion Findings Left Ventricle Normal left ventricular size, thickness, and systolic function. The visually estimated ejection fraction is between 60-65%. Spectral Doppler is indicative of an impaired relaxation filling pattern. E/E prime ratio is between 8 and 15 consistent with indeterminate filling pressures. Right Ventricle Normal right ventricular cavity size and systolic function. Atria Both atria are normal in size. Interatrial shunt cannot be excluded. Aortic Valve There is mild calcification of the aortic valve. There is no aortic valve stenosis. There is no aortic valve regurgitation. Mitral Valve There is mild anterior and posterior mitral leaflet thickening. There is severe mitral annular calcification. There is mild mitral valve regurgitation. There is no mitral valve stenosis. Pulmonic Valve The pulmonic valve was not well visualized. Tricuspid Valve Likely normal tricuspid valve structure and function. There is mild tricuspid valve regurgitation. The right ventricular systolic pressure is normal. Normal right atrial pressure. There is no evidence of pulmonary hypertension. Great Vessels All visible segments of the aorta are normal in size. The pulmonary artery was not well visualized. Venous The inferior vena cava is normal in size and collapses greater than 50% with inspiration. Pericardium/Pleural There is no evidence of pericardial effusion. Prior Study Comparison No prior study available for comparison. Measurements 2D Linear Measurements IVSd: 1.20 0.6-0.9/0.6-1.0 cm LVIDd: 2.33 3.9-5.3/4.2-5.9 cm LVIDd Index: 1.44 2.4-3.2/2.2-3.1 cm/m2 LVIDs: 1.52 2.0-3.6 cm LVPWd: 1.02 0.7-1.1 cm Ao Root: 3.20 2.1-3.5 cm LA Diam: 2.80 2.7-3.8/3.0-4.0 cm LAIDs Index: 1.73 1.5-2.3 cm/m2 LV Mass: 97.60 67-162/88-224 g LV Mass Index: 60.25 43-95/49-115 g/m2 LVOT Diam: 1.70 3.0+(-)1.3 cm Mitral Valve MV VTI: 0.24 MV Pk Marino: 1.29 MV Mn Marino: 0.76 MV Pk Grad: 7.00 MV Mn Grad: 3.00 MV Pk E: 0.78 MV PK A: 1.29 MV Decel Time: 121.00 E/A: 0.60 E'Lateral: 6.29 E'Medial: 4.93 E/E' Med: 15.80 E/E' Lat: 12.40 PHT: 36.00 MVA PHT: 6.11 MVA Continuity: 2.04 Decel [place]: 6.43 Aortic Valve AoV Pk Marino: 1.35 AoV Mn Marino: 0.80 AoV VTI: 0.25 AoV Pk Grad: 7.00 Aov Mn Grad: 3.00 SAMARA Cont.VTI: 1.92 LVOT LVOT Pk Marino: 0.87 LVOT Mn Marino: 0.54 LVOT VTI: 0.21 LVOT Pk Grad: 3.00 LVOT Mn Grad: 1.00 LVOT Diam: 1.70 LVOT Area: 2.27 Diastolic Function MV Pk E: 0.78 MV Pk A: 1.29 E/A: 0.60 E'Medial: 4.93 E/E' Med: 15.80 E' Laterial: 6.29 E/E' Lat: 12.40 Tricuspid Valve TR Pk Marino: 2.59 TR Pk Grad: 27.00 RA Press: 3.00 RVSP: 30.00 Great Vessels Aorta Ao Root-2D: 3.20 2.0-3.7 cm Ao Asc: 3.00 2.1-3.4 cm Pulmonary Valve PV Pk Marino: 0.76 Peak PV Grad: 2.00 Updated in Other Vendor System with Status of Final Mike Phipps MD electronically signed on 01/15/2021 3:53:18 PM with status of Final
[2021-01-15] MEDS: Enalapril Maleate 10 MG TABLET 20 MG PO ×2 (09:48→20:22)
[2021-01-15] MEDS: amLODIPine Besylate 10 MG TABLET PO (09:49)
--- NOTE | 2021-01-15 10:12 | MHC.CM.PN ---
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 this interview was conducted through pt's daughter, michelle, who is at the bedside. pt lives at home c her 40 y/o grandson. he helps care for her...buy groceries, cook, laundry, etc... pt also has a LEGAL BILLING COORDINATOR 2days/ wk for 2 hrs per day that helps c showering and light house work. pt uses a walker c ambulation. pt has requested to go to [facility] for str at hi. a ref. for this has been made. hi plan is to str. cm to cont. to follow.
--- NOTE | 2021-01-15 12:27 | PM.EVENT ---
Event Note Date of Service: 01/15/21 Event Note: 85-year-old female with past medical history of hypertension hyperlipidemia hypothyroidism speaks only by sign language presented to [facility] after a mechanical fall, with no loss of consciousness no head injury, no preceding him symptoms of chest pain lightheadedness or dizziness patient workup in the ER showed UTI, EKG was read as atrial fibrillation on reviewing EKG it seems patient has normal sinus rhythm, with PACs, case discussed with Cardiology they agrees that patient is in normal sinus rhythm therefore called orthopedic surgeon and advised him to proceed with surgery since OR is busy today patient will have surgery tomorrow, therefore will resume diet. Problem list UTI continue IV ceftriaxone follow urine culture History of hypertension continue amlodipine and vaso tach twice daily follow blood pressure closely DVT prophylaxis on heparin subQ 8 hour Mechanical fall with intertrochanteric fracture of right proximal femur with mild varus angulation, to proceed with hip surgery, patient is moderate risk for a moderate risk surgery.
--- NOTE | 2021-01-15 12:30 | P.CONCA_ITS ---
History of Present Illness History of Present Illness Date of Service: 01/15/21 Consult reason: pre-op evaluation and other (Cardiac arrhythmias) Chief complaint: Hip fracture Narrative: We were invited to see Rupa in cardiovascular evaluation for hip surgery for fracture related to a fall. EKG was initially read as atrial fibrillation there was concern about cardiac arrhythmias and require cardiac clearance. History was obtained with help of her daughter as patient is congenitally deaf and sign language was used to obtain history. Patient fell down accidentally and fractured her right hip. Prior to going down she did not have any lightheadedness, syncope, palpitations. Currently she is not having any symptoms of chest pain, shortness of breath, palpitations. Noted on EKG to have sinus rhythm with PACs unchanged from before. Recorded EKG does not show atrial fibrillation. Patient prior to her presentation is not completely active due to arthritis but has had no exertional chest pain or shortness of breath, palpitations, lightheadedness. She takes medications for hypertension. No other prior cardiac issues Review of Systems Constitutional: Constitutional: Reports no additional constitutional complaints Cardiovascular: Cardiovascular: Reports no additional cardiovascular complaints Respiratory: Respiratory: Reports no additional respiratory complaints Gastrointestinal: Gastrointestinal: Reports no additional gastrointestinal complaints Genitourinary: Genitourinary: Reports no additional female genitourinary complaints Musculoskeletal: Musculoskeletal: Reports no additional musculoskeletal complaints Neurologic: Reports system reviewed and no additional complaints, except as documented Psychiatric: Psychiatric: Reports no additional psychiatric complaints Endocrine: Endocrine: Reports no additional endocrine complaints Hematologic/Lymphatic: Hematologic/Lymphatic: Reports no additional hematologic/lymphatic complaints PMF Past Medical History Medical History Acquired hypothyroidism Dyslipidemia Essential hypertension Osteoporosis Right hip pain Family History Family History Father Myocardial infarction CVD (cardiovascular disease) Mother Unknown family medical history Son No problems noted. Son No problems noted. Daughter No problems noted. Surgical History Surgical History History of hernia repair History of hysterectomy Social History Social History Alcohol intake: never Smoking Status: Current some day smoker Use of substances other than those prescribed or required for medical reasons: No Currently Displaying Signs/Symptoms of Drug Intoxication Withdrawal: No Advance Directives: No Do you have thoughts of harming others: None Do you have a plan to hurt others: No Plan service: No Current occupational status: retired Meds Allergies Allergy/AdvReac Type Severity Reaction Status Date / Time No Known Allergies Allergy Verified 01/12/21 14:14 [No Known Allergies*] Active Medications: Current Medications Generic Name Dose Route Start Last Admin Trade Name Freq PRN Reason Stop Dose Admin Acetaminophen 650 mg 01/15/21 04:45 Acetaminophen 325 Mg Tablet PO Q6H PRN Pain, Mild (Pain Scale 1-3) Alendronate Sodium 70 mg 01/15/21 05:00 Alendronate Sodium 70 Mg Tablet PO .QWeek [facility] Amlodipine Besylate 10 mg 01/15/21 09:00 01/15/21 09:49 Amlodipine Besylate 10 Mg Tablet PO 10 mg DAILY [facility] Administration Protocol Enalapril Maleate 20 mg 01/15/21 09:00 01/15/21 09:48 Enalapril Maleate 10 Mg Tablet PO 20 mg BID [facility] Administration Protocol Heparin Sodium (Porcine) 5,000 unit 01/15/21 06:00 01/15/21 05:45 Heparin Sodium,Porcine 5,000 Unit/Ml Vial SUBCUT Not Given Q8H [facility] Ceftriaxone Sodium 1 gm/ 50 mls @ 100 mls/hr 01/16/21 05:00 Sodium Chloride IV Q24H [facility] Levothyroxine Sodium 88 mcg 01/15/21 06:00 01/15/21 07:38 Levothyroxine Sodium 88 Mcg Tablet PO 88 mcg DAILY@0600 [facility] Administration Ondansetron HCl 4 mg 01/15/21 06:57 01/15/21 07:38 Ondansetron Hcl 4 Mg/2 Ml Vial IVPUSH 4 mg Q6H PRN Administration Nausea and Vomiting Oxycodone HCl 5 mg 01/15/21 04:45 01/15/21 06:46 Oxycodone Hcl Immed Release 5 Mg Tablet PO 5 mg Q6H PRN Administration Pain, Severe (Pain Scale 7-10) Sodium Chloride 3 ml 01/15/21 08:00 01/15/21 07:44 0.9 % Sodium Chloride Flush 3 Ml Syringe IVFLUSH 3 ml QSHIFT [facility] Administration Home Medications Medication Instructions Recorded Confirmed Last Taken Type alendronate 70 mg tablet 70 mg PO QWEEK 12/25/20 01/15/21 Unknown History amlodipine 10 mg tablet 10 mg PO DAILY 12/25/20 01/15/21 Unknown History enalapril maleate 20 mg tablet 20 mg PO BID 12/25/20 01/15/21 Unknown History levothyroxine 88 mcg tablet 88 mcg PO DAILY 12/25/20 01/15/21 Unknown History tramadol 50 mg PO Q8H PRN 01/15/21 01/15/21 Unknown History Physical Exam Vital Signs: Vital Signs: Last Vital Signs Temp 97.0 F 01/15/21 11:29 Pulse 106 H 01/15/21 11:29 Resp 15 01/15/21 11:29 BP 125/69 01/15/21 11:29 Pulse Ox 97 01/15/21 11:29 Body Mass Index 22.1 Const: General: cooperative, comfortable, alert and awake Nutritional Appearance: thin Orientation/consciousness: patient oriented x3 HENMT: Head: Yes normocephalic and Yes atraumatic Neck: Neck: Yes trachea midline, Yes supple and Yes no JVD Chest: Chest palpation & inspection: normal inspection of the chest Resp: Effort & Inspection: normal respiratory effort Auscultation: clear to auscultation bilaterally and diminished lung sounds Cardio: Jugular venous distension: no JVD Palpation: normal PMI Rate: regular rate Rhythm: regular rhythm and abnormal rhythm with ectopic beats Heart sounds: S1 normal heart sound present and S2 normal heart sound present GI: Auscultation: normal bowel sounds Skin: General skin exam: no rashes or lesions noted Neuro: General: patient oriented x3 and no focal motor deficits Extrem: General: Yes no clubbing, cyanosis or edema Psych: Appearance: grossly normal Results Labs and Meds Result diagrams: 01/15/21 08:27 01/15/21 08:27 Lab results: Laboratory Results - last 24 hr 01/15/21 01/15/21 01/15/21 02:48 02:48 03:51 WBC 10.1 RBC 5.06 Hgb 14.9 Hct 44.4 MCV 87.7 MCH 29.4 MCHC 33.6 RDW 12.5 Plt Count 241 MPV 9.8 Immature Gran % (Auto) 0.6 H Neut % (Auto) 72.7 Lymph % (Auto) 17.8 L [place] % (Auto) 8.0 Eos % (Auto) 0.6 Baso % (Auto) 0.3 Lymph # (Auto) 1.8 [place] # (Auto) 0.8 Eos # (Auto) 0.1 Baso # (Auto) 0.0 Abs Immat Gran (auto) 0.06 H Absolute Neuts (auto) 7.3 Absolute Nucleated RBC 0.000 Nucleated RBC % (auto) 0.0 PT 11.8 INR 1.0 Sodium Potassium Chloride Carbon Dioxide Anion Gap BUN Creatinine Estim Creat Clear Calc Estimated GFR Random Glucose Lactic Acid Calcium Total Bilirubin AST ALT Alkaline Phosphatase Total Protein Albumin Urine Color YELLOW Urine Appearance HAZY Urine pH 6.5 Ur Specific [place] 1.010 Urine Protein NEG Urine Glucose (UA) NEG Urine Ketones NEG Urine Blood TRACE Urine Nitrite NEG Ur Leukocyte Esterase 2+ H Urine RBC 0-2 Urine WBC 5-9 H Ur Squamous Epith Cells 1+ Urine Bacteria 4+ COVID-19 (BASHIR) COVID-19 Clin Com Blood Type Antibody Screen 01/15/21 01/15/21 01/15/21 03:52 03:52 04:12 WBC RBC Hgb Hct MCV MCH MCHC RDW Plt Count MPV Immature Gran % (Auto) Neut % (Auto) Lymph % (Auto) [place] % (Auto) Eos % (Auto) Baso % (Auto) Lymph # (Auto) [place] # (Auto) Eos # (Auto) Baso # (Auto) Abs Immat Gran (auto) Absolute Neuts (auto) Absolute Nucleated RBC Nucleated RBC % (auto) PT INR Sodium 138 Potassium 3.7 Chloride 104 Carbon Dioxide 24 Anion Gap 14 BUN 15 Creatinine 0.65 Estim Creat Clear Calc 56.6 Estimated GFR > 60 Random Glucose 150 H Lactic Acid Calcium 9.1 Total Bilirubin 1.2 H AST 15 ALT 21 Alkaline Phosphatase 115 Total Protein 6.6 Albumin 4.0 Urine Color Urine Appearance Urine pH Ur Specific [place] Urine Protein Urine Glucose (UA) Urine Ketones Urine Blood Urine Nitrite Ur Leukocyte Esterase Urine RBC Urine WBC Ur Squamous Epith Cells Urine Bacteria COVID-19 (BASHIR) Negative COVID-19 Clin Com See Note Blood Type B Positive Antibody Screen NEGATIVE 01/15/21 01/15/21 01/15/21 04:52 08:27 08:27 WBC 12.3 H RBC 4.62 Hgb 13.5 Hct 40.9 MCV 88.5 MCH 29.2 MCHC 33.0 RDW 12.5 Plt Count 249 MPV 9.8 Immature Gran % (Auto) 0.6 H Neut % (Auto) 79.1 H Lymph % (Auto) 11.5 L [place] % (Auto) 8.5 Eos % (Auto) 0.1 Baso % (Auto) 0.2 Lymph # (Auto) 1.4 [place] # (Auto) 1.1 Eos # (Auto) 0.0 Baso # (Auto) 0.0 Abs Immat Gran (auto) 0.07 H Absolute Neuts (auto) 9.8 H Absolute Nucleated RBC 0.000 Nucleated RBC % (auto) 0.0 PT INR Sodium 139 Potassium 3.7 Chloride 105 Carbon Dioxide 24 Anion Gap 14 BUN 14 Creatinine 0.67 Estim Creat Clear Calc 54.9 Estimated GFR > 60 Random Glucose 199 H Lactic Acid 0.9 Calcium 8.9 Total Bilirubin AST ALT Alkaline Phosphatase Total Protein Albumin Urine Color Urine Appearance Urine pH Ur Specific [place] Urine Protein Urine Glucose (UA) Urine Ketones Urine Blood Urine Nitrite Ur Leukocyte Esterase Urine RBC Urine WBC Ur Squamous Epith Cells Urine Bacteria COVID-19 (BASHIR) COVID-19 Clin Com Blood Type Antibody Screen EKG shows sinus tachycardia with PACs Imaging Radiologist's impression: Impressions Hip/Pelvis X-Ray 01/15/21 02:39 IMPRESSION: Intertrochanteric fracture of the right proximal femur with mild varus angulation. Chest X-Ray 01/15/21 02:40 IMPRESSION: No acute pulmonary findings. Assessment and Plan (1) Preoperative cardiovascular examination: Status: Acute Preoperative cardiovascular risk stratification for urgently required hip surgery in elderly woman with risk factor of hypertension. EKG does not show atrial fibrillation but shows PACs. She has no active cardiac symptoms and no signs or symptoms of congestive heart failure at this time. She does have limited exercise capacity at home in the recent past due to arthritis. I am cardiac perspective she is optimized to undergo require urgent hip surgery with low to intermediate risk for perioperative cardiovascular morbidity and mortality. No preoperative workup is required at this point in time. Please pay attention to fluid and blood loss and treat as needed. Please consult us in the perioperative. So required. (2) PAC (premature atrial contraction): Status: Acute EKG shows PACs which are old. Patient has no symptoms related to it. No specific therapy required for the same. Will follow the patient if need be. Thank you for allowing us to partake in her care
[2021-01-15] MEDS: Heparin Sodium,Porcine 5,000 UNIT/ML VIAL 5000 UNIT SUBCUT ×2 (13:50→23:20)
[2021-01-15] MEDS: HYDROmorphone HCl 0.5 MG/0.5 ML SYRINGE 0.25 MG IVPUSH (20:21)
[2021-01-16] VITALS (16 sets, daily range): BP systolic 102–156; BP diastolic 53–95; PULSE 86–113; RESP 14–19; TEMP 36–37.8; O2SAT 95–100
[2021-01-16] MEDS: HYDROmorphone HCl 0.5 MG/0.5 ML SYRINGE 0.25 MG IVPUSH (05:16)
[2021-01-16] MEDS: cefTRIAXone sodium 1 GM in 0.9 % Sodium Chloride 50 ML IV (05:17)
[2021-01-16] MEDS: 0.9 % Sodium Chloride Flush 3 ML SYRINGE IVFLUSH ×4 (09:59→21:41)
--- NOTE | 2021-01-16 10:05 | P.CONAN_ITS ---
HPI - Anesthesia Eval Consult details Narrative: 85 F for femoral nailing PMFSH Active Problems Active Problems: All Active Problems (Updated 01/15/21 @ 12:30 by Mike Phipps MD) PAC (premature atrial contraction) (Acute) Preoperative cardiovascular examination (Acute) Intertrochanteric fracture of right femur (Acute) Atrial fibrillation, new onset (Acute) Dyslipidemia (Acute) Osteoporosis (Acute) Essential hypertension (Acute) Acquired hypothyroidism (Acute) Right hip pain (Acute) Past Medical History Medical History Acquired hypothyroidism Dyslipidemia Essential hypertension Osteoporosis Right hip pain Family History Family History Father Myocardial infarction CVD (cardiovascular disease) Mother Unknown family medical history Son No problems noted. Son No problems noted. Daughter No problems noted. Surgical History Surgical History History of hernia repair History of hysterectomy Social History Social History Alcohol intake: never Smoking Status: Former smoker Use of substances other than those prescribed or required for medical reasons: No Currently Displaying Signs/Symptoms of Drug Intoxication Withdrawal: No Advance Directives: No Do you have thoughts of harming others: None Do you have a plan to hurt others: No Plan service: No Current occupational status: retired [employer] Allergies Allergy/AdvReac Type Severity Reaction Status Date / Time No Known Allergies Allergy Verified 01/12/21 14:14 [No Known Allergies*] Active Medications: Current Medications Generic Name Dose Route Start Last Admin Trade Name Freq PRN Reason Stop Dose Admin Acetaminophen 650 mg 01/15/21 04:45 Acetaminophen 325 Mg Tablet PO Q6H PRN Pain, Mild (Pain Scale 1-3) Amlodipine Besylate 10 mg 01/15/21 09:00 01/15/21 09:49 Amlodipine Besylate 10 Mg Tablet PO 10 mg DAILY [facility] Administration Protocol Enalapril Maleate 20 mg 01/15/21 09:00 01/15/21 20:22 Enalapril Maleate 10 Mg Tablet PO 20 mg BID [facility] Administration Protocol Heparin Sodium (Porcine) 5,000 unit 01/15/21 06:00 01/16/21 05:17 Heparin Sodium,Porcine 5,000 Unit/Ml Vial SUBCUT Not Given Q8H [facility] Hydromorphone HCl 0.25 mg 01/15/21 16:25 01/16/21 05:16 Hydromorphone Hcl 0.5 Mg/0.5 Ml Syringe IVPUSH 0.25 mg Q6H PRN Administration Pain, Severe (Pain Scale 7-10) Ceftriaxone Sodium 1 gm/ 50 mls @ 100 mls/hr 01/16/21 05:00 01/16/21 06:25 Sodium Chloride IV Infused Q24H [facility] Infusion Levothyroxine Sodium 88 mcg 01/15/21 06:00 01/16/21 05:18 Levothyroxine Sodium 88 Mcg Tablet PO Not Given DAILY@0600 [facility] Ondansetron HCl 4 mg 01/15/21 06:57 01/15/21 07:38 Ondansetron Hcl 4 Mg/2 Ml Vial IVPUSH 4 mg Q6H PRN Administration Nausea and Vomiting Oxycodone HCl 5 mg 01/15/21 04:45 01/15/21 18:25 Oxycodone Hcl Immed Release 5 Mg Tablet PO 5 mg Q6H PRN Administration Pain, Severe (Pain Scale 7-10) Sodium Chloride 3 ml 01/15/21 08:00 01/16/21 09:59 0.9 % Sodium Chloride Flush 3 Ml Syringe IVFLUSH 3 ml QSHIFT [facility] Administration Home Medications Medication Instructions Recorded Confirmed Last Taken Type alendronate 70 mg tablet 70 mg PO QWEEK 12/25/20 01/15/21 Unknown History amlodipine 10 mg tablet 10 mg PO DAILY 12/25/20 01/15/21 Unknown History enalapril maleate 20 mg tablet 20 mg PO BID 12/25/20 01/15/21 Unknown History levothyroxine 88 mcg tablet 88 mcg PO DAILY 12/25/20 01/15/21 Unknown History tramadol 50 mg PO Q8H PRN 01/15/21 01/15/21 Unknown History Exam Exam Date and Time: January 16, 2021 1005 Height,Weight and Vital Signs: Height 5 ft 4 in Weight 58.7 kg Last Vital Signs Temp 100.0 F 01/16/21 09:25 Pulse 113 H 01/16/21 09:25 Resp 18 01/16/21 09:25 BP 147/66 H 01/16/21 09:25 Pulse Ox 95 01/16/21 09:25 Pertinent Lab Results Pertinent Lab Results: Laboratory Tests 01/15/21 01/15/21 01/15/21 02:48 02:48 03:51 WBC 10.1 RBC 5.06 Hgb 14.9 Hct 44.4 MCV 87.7 MCH 29.4 MCHC 33.6 RDW 12.5 Plt Count 241 MPV 9.8 Immature Gran % (Auto) 0.6 H Neut % (Auto) 72.7 Lymph % (Auto) 17.8 L [place] % (Auto) 8.0 Eos % (Auto) 0.6 Baso % (Auto) 0.3 Lymph # (Auto) 1.8 [place] # (Auto) 0.8 Eos # (Auto) 0.1 Baso # (Auto) 0.0 Abs Immat Gran (auto) 0.06 H Absolute Neuts (auto) 7.3 Absolute Nucleated RBC 0.000 Nucleated RBC % (auto) 0.0 PT 11.8 INR 1.0 Sodium Potassium Chloride Carbon Dioxide Anion Gap BUN Creatinine Estim Creat Clear Calc Estimated GFR Random Glucose Lactic Acid Calcium Total Bilirubin AST ALT Alkaline Phosphatase Total Protein Albumin Urine Color YELLOW Urine Appearance HAZY Urine pH 6.5 Ur Specific Sharon 1.010 Urine Protein NEG Urine Glucose (UA) NEG Urine Ketones NEG Urine Blood TRACE Urine Nitrite NEG Ur Leukocyte Esterase 2+ H Urine RBC 0-2 Urine WBC 5-9 H Ur Squamous Epith Cells 1+ Urine Bacteria 4+ COVID-19 ([facility]) COVID-19 Clin Com Blood Type Antibody Screen 01/15/21 01/15/21 01/15/21 03:52 03:52 04:12 WBC RBC Hgb Hct MCV MCH MCHC RDW Plt Count MPV Immature Gran % (Auto) Neut % (Auto) Lymph % (Auto) [place] % (Auto) Eos % (Auto) Baso % (Auto) Lymph # (Auto) [place] # (Auto) Eos # (Auto) Baso # (Auto) Abs Immat Gran (auto) Absolute Neuts (auto) Absolute Nucleated RBC Nucleated RBC % (auto) PT INR Sodium 138 Potassium 3.7 Chloride 104 Carbon Dioxide 24 Anion Gap 14 BUN 15 Creatinine 0.65 Estim Creat Clear Calc 56.6 Estimated GFR > 60 Random Glucose 150 H Lactic Acid Calcium 9.1 Total Bilirubin 1.2 H AST 15 ALT 21 Alkaline Phosphatase 115 Total Protein 6.6 Albumin 4.0 Urine Color Urine Appearance Urine pH Ur Specific Sharon Urine Protein Urine Glucose (UA) Urine Ketones Urine Blood Urine Nitrite Ur Leukocyte Esterase Urine RBC Urine WBC Ur Squamous Epith Cells Urine Bacteria COVID-19 ([facility]) Negative COVID-19 Clin Com See Note Blood Type B Positive Antibody Screen NEGATIVE 01/15/21 01/15/21 01/15/21 04:52 08:27 08:27 WBC 12.3 H RBC 4.62 Hgb 13.5 Hct 40.9 MCV 88.5 MCH 29.2 MCHC 33.0 RDW 12.5 Plt Count 249 MPV 9.8 Immature Gran % (Auto) 0.6 H Neut % (Auto) 79.1 H Lymph % (Auto) 11.5 L [place] % (Auto) 8.5 Eos % (Auto) 0.1 Baso % (Auto) 0.2 Lymph # (Auto) 1.4 [place] # (Auto) 1.1 Eos # (Auto) 0.0 Baso # (Auto) 0.0 Abs Immat Gran (auto) 0.07 H Absolute Neuts (auto) 9.8 H Absolute Nucleated RBC 0.000 Nucleated RBC % (auto) 0.0 PT INR Sodium 139 Potassium 3.7 Chloride 105 Carbon Dioxide 24 Anion Gap 14 BUN 14 Creatinine 0.67 Estim Creat Clear Calc 54.9 Estimated GFR > 60 Random Glucose 199 H Lactic Acid 0.9 Calcium 8.9 Total Bilirubin AST ALT Alkaline Phosphatase Total Protein Albumin Urine Color Urine Appearance Urine pH Ur Specific Sharon Urine Protein Urine Glucose (UA) Urine Ketones Urine Blood Urine Nitrite Ur Leukocyte Esterase Urine RBC Urine WBC Ur Squamous Epith Cells Urine Bacteria COVID-19 ([facility]) COVID-19 Clin Com Blood Type Antibody Screen Airway Mallampati Class: III TM Dist: >3cm Loose/Missing/Broken Teeth: No Heart: PACs Lungs: NL Assessment and Plan Assessment Anesthesia Assessment: Anesthesia Plan Discussed and Chart Reviewed Final Anesthetic Review NPO: Yes ASA Class: III Final Preanesthetic Review: No Changes in Pt Med Stat, Meds/Allgs Chart Reviewed, Consent Obtained/Reviewed and Anes Risks/Benef Reviewed Patient Risk: Intermediate Procedure Risk: Intermediate Anesthetic Plan Anesthetic Plan: GA Disposition: Standard PACU
--- NOTE | 2021-01-16 10:11 | MHC.SHP ---
Pre-Procedural Eval Section A The patient is an INPATIENT: Yes Section B Chief Complaint: Hip fracture Allergies: Allergies Allergy/AdvReac Type Severity Reaction Status Date / Time No Known Allergies Allergy Verified 01/12/21 14:14 [No Known Allergies*] Plan I have reviewed the history and physical and performed a pertinent physical examination on my patient. No changes have occurred unless specified.
[2021-01-16] MEDS: Lactated Ringers 1,000 ML 50 ML IV (10:24)
--- NOTE | 2021-01-16 11:00 | PC.NURSE ---
dtr michelle took mom's 1 ring and glasses.
--- NOTE | 2021-01-16 11:50 | P.OP_ITS ---
Operative Note Operative Note Date of Service: 01/16/21 Narrative: OPERATIVE PROCEDURE NOTE SURGEON: Dr. Carcamo ([place]) [employer] INTERVENTION MANAGER: Jenna Conklin PAC PREOP DIAGNOSIS: Intertrochanteric fracture right hip POSTOP DIAGNOSIS: Same OPERATIVE PROCEDURE: Operative fixation right hip with locked short gamma nail CLINICAL NOTE: This is a pleasant elderly lady who is hearing impaired fell and injured her hip on the date of admission. She subsequently was admitted to the medical service. She was seen by Cardiology. She subsequently was cleared. Using interpretation both from her daughter as well as the interpretation service after explaining the risks benefits and alternatives and answering all her questions it was mutually agreed to carry out the following procedure OPERATIVE PROCEDURE Under general anesthetic the patient placed supine on the fracture table. The right foot was placed in standard boot traction. The left leg was flexed a bducted externally rotate her out of the way. A closed reduction was then performed under fluoroscopic guidance a once it was appropriate the the right hip was prepped and draped in standard barrier technique. Surgical time-out was then performed patient's identified procedure confirmed site confirmed medical analogy history reviewed preoperative antibiotics given standard DVT prophylaxis place all other items discussed and agreed upon. Standard approach to the tip of the trochanter was carried out was taken down through subcutaneous tissues hemostasis she has a longer using electrocautery. The/mesfin was divided along the length incision the muscles then bluntly dissected down to the tip of the trochanter. Under a fluoroscopic guidance again the curved awl was used in order to enter th e tip of the trochanter. The guidewire was then inserted and then the eventually was passed down into the distal segment. A sure to 125 degree gamma nail was selected and brought up the table. The step Reamer was used in standard fashion. The get the nail was then brought up. He was attempt to be passed but eventually it was difficult. Checking on fluoroscopy demonstrated was actually tight in the canal. Therefore the nail was withdrawn the canal was over reamed to up to 12.5 mm side the nail was then reinserted with excellent with story without any incident across the fracture site the guidewires removed and was seated to the level for the lag screw. Stab incision was made laterally the guides for the leg screw then inserted next to the bone the guidewires inserted inferior to the midline on the AP and into the center of the head on the lateral. It was measured and 90 mm lag screw was selected. It was then over reamed over the guidewire under fluoroscopic guidance the lag screw was then inserted with excellent purchase and subchondral bone. The set screw was then placed in standard fashion. I we then turned our attention to the distal lock. Against stab incision was made the guides were set along the lateral aspect of the femur it was drilled measured and a 35 mm locking screw was inserted with excellent purchase and length. At this point the traction was let off. Have final imaging was taken on AP and lateral fluoroscopy which demonstrated the fracture reduced in very stiff as satisfactory position all the hardware be appropriate length. Therefore proceeded to closure. The wound was thoroughly irrigated. The proximal end had the fascia mesfin closed with 2. Dexon. All incisions had the skin approximated using interrupted 2-0 Dexon franklyn were used to close incisions. Sterile dressing was then applied. The patient was then taken out of traction and off the fracture table. They were transferred supine to the room bed with the anesthesia was reversed. They were taken to the recovery room in good condition. Intraoperatively there was approximately 75 cc blood loss no complications.
--- NOTE | 2021-01-16 13:47 | P.PNIM_ITS ---
Subjective Subjective Date of Service: 01/16/21 Interval History: resting comfortably Cardiovascular Cardiovascular: Reports no additional cardiovascular complaints Respiratory Respiratory: Reports no additional respiratory complaints Physical Exam Vital Signs: Vital Signs: Last Vital Signs Temp 98.6 F 01/16/21 13:03 Pulse 86 01/16/21 13:03 Resp 18 01/16/21 13:03 BP 156/95 H 01/16/21 13:03 Pulse Ox 97 01/16/21 13:03 Body Mass Index 22.1 General: sleeping, no acute distress Resp: CTA bilateral CVS: S1,S2,RRR GI: soft, non tender, non distended Neuro: cannot assess Psych: appropriate affect Objective Data Current Medications Generic Name Dose Route Start Last Admin Trade Name Freq PRN Reason Stop Dose Admin Acetaminophen 650 mg 01/15/21 04:45 Acetaminophen 325 Mg Tablet PO Q6H PRN Pain, Mild (Pain Scale 1-3) Amlodipine Besylate 10 mg 01/15/21 09:00 01/16/21 13:08 Amlodipine Besylate 10 Mg Tablet PO Not Given DAILY [facility] Protocol Enalapril Maleate 20 mg 01/15/21 09:00 01/16/21 13:08 Enalapril Maleate 10 Mg Tablet PO Not Given BID [facility] Protocol Heparin Sodium (Porcine) 5,000 unit 01/15/21 06:00 01/16/21 05:17 Heparin Sodium,Porcine 5,000 Unit/Ml Vial SUBCUT Not Given Q8H [facility] Hydromorphone HCl 0.25 mg 01/15/21 16:25 01/16/21 05:16 Hydromorphone Hcl 0.5 Mg/0.5 Ml Syringe IVPUSH 0.25 mg Q6H PRN Administration Pain, Severe (Pain Scale 7-10) Hydromorphone HCl 0.25 mg 01/16/21 11:50 Hydromorphone Hcl 0.5 Mg/0.5 Ml Syringe IVPUSH Q5M PRN Pain, Severe (Pain Scale 7-10) Ceftriaxone Sodium 1 gm/ 50 mls @ 100 mls/hr 01/16/21 05:00 01/16/21 06:25 Sodium Chloride IV Infused Q24H [facility] Infusion Lactated Ringer's 1,000 mls @ 50 mls/hr 01/16/21 10:15 01/16/21 10:24 Lr IV 50 mls/hr .Q20H [facility] Administration Cefazolin Sodium/Dextrose 2 gm in 50 mls @ 100 mls/hr 01/16/21 13:06 Ancef IV 01/16/21 13:35 POSTOP ONE Levothyroxine Sodium 88 mcg 01/15/21 06:00 01/16/21 05:18 Levothyroxine Sodium 88 Mcg Tablet PO Not Given DAILY@0600 [facility] Ondansetron HCl 4 mg 01/15/21 06:57 01/15/21 07:38 Ondansetron Hcl 4 Mg/2 Ml Vial IVPUSH 4 mg Q6H PRN Administration Nausea and Vomiting Oxycodone HCl 5 mg 01/15/21 04:45 01/15/21 18:25 Oxycodone Hcl Immed Release 5 Mg Tablet PO 5 mg Q6H PRN Administration Pain, Severe (Pain Scale 7-10) Sodium Chloride 3 ml 01/15/21 08:00 01/16/21 09:59 0.9 % Sodium Chloride Flush 3 Ml Syringe IVFLUSH 3 ml QSNDFT [facility] Administration Sodium Chloride 3 ml 01/16/21 16:00 0.9 % Sodium Chloride Flush 3 Ml Syringe IVFLUSH QSHIFT [facility] Labs CBC & Chem 7: 01/15/21 08:27 01/15/21 08:27 Microbiology Microbiology Results: Microbiology 01/15/21 03:51 Urine [place] Urine Culture - Preliminary Gram negative brandon 01/15/21 04:52 Blood - Venous Blood Culture - Preliminary No growth after 24 hours. 01/15/21 04:52 Blood - Venous Blood Culture - Preliminary No growth after 24 hours. Assessment and Plan (1) Intertrochanteric fracture of right femur: Status: Acute Assessment and Plan: 85-year-old female with a past medical history of hypertension, hyperlipidemia, hypothyroidism, osteoporosis presented to the hospital with a chief complaint of fall. Right femur intertrochanteric fracture s/p surgery today afib on computer reading of EKG determined to be NSR with PACs positive ua urine culture negative continue ceftriaxone today, then dc Hypothyroidism levothyroxine
[2021-01-16] MEDS: Heparin Sodium,Porcine 5,000 UNIT/ML VIAL 5000 UNIT SUBCUT ×2 (14:16→21:36)
[2021-01-16] MEDS: oxyCODONE HCl Immed Release 5 MG TABLET PO (15:46)
[2021-01-16] MEDS: ceFAZolin Sodium/Dextrose,Iso 2 GM/50 ML PIGGYBACK IV (17:12)
[2021-01-16] MEDS: ondansetron HCL 4 MG/2 ML VIAL IVPUSH (17:59)
[2021-01-16] MEDS: Enalapril Maleate 10 MG TABLET 20 MG PO (21:36)
[2021-01-17] VITALS (9 sets, daily range): BP systolic 109–133; BP diastolic 57–77; PULSE 107–119; RESP 15–18; TEMP 35.8–36.8; O2SAT 96–100
[2021-01-17] MEDS: Levothyroxine Sodium 88 MCG TABLET PO (05:47)
[2021-01-17] MEDS: Heparin Sodium,Porcine 5,000 UNIT/ML VIAL 5000 UNIT SUBCUT ×3 (05:54→20:53)
[2021-01-17] MEDS: HYDROmorphone HCl 0.5 MG/0.5 ML SYRINGE 0.25 MG IVPUSH (05:57)
[2021-01-17] MEDS: cefTRIAXone sodium 1 GM in 0.9 % Sodium Chloride 50 ML IV (05:57)
[2021-01-17 06:46] LABS: MANUAL DIFF FLAG NO
[2021-01-17 06:53] LABS: Basophils Percent Auto 0.2 % (0-2); Eosinophils Percent Auto 0.4 % (0-4); Hematocrit 35.9 % (37-47); Imm Gran Abs Auto 0.05 X10*3/uL (0.00-0.03); Imm Gran Pct Auto 0.5 % (0.0-0.4); Mean Corpuscular HGB Conc 33.4 g/dl (31.0-35.0); Mean Corpuscular Hemoglobin 29.3 pg (27.0-33.0); Mean Corpuscular Volume 87.8 fL (80-98); Mean Platelet Volume 9.9 fL (9.4-12.3); Monocytes Percent Auto 9.9 % (2-11); Neutrophils Absolute Auto 6.6 X10*3/uL (2.0-8.3); Platelet Count 231 X10*3/uL (160-400); Red Blood Count 4.09 X10*6/uL (4.20-5.50); Red Cell Distribution Width 12.2 % (11.0-16.0); White Blood Count 9.6 X10*3/uL (4.8-10.8)
[2021-01-17 07:18] LABS: Anion Gap 13 (12-20); Blood Urea Nitrogen 16 mg/dL (9-16); Calcium 8.7 mg/dL (8.4-10.2); Carbon Dioxide 26 mmol/L (22-29); Chloride 102 mmol/L (96-108); Creatinine Clr Calc Pharmacy 58.4; Estimated Glomerular Filt Rate > 60; Glucose Fasting 125 mg/dL (60-99); Sodium 137 mmol/L (135-145)
--- NOTE | 2021-01-17 09:40 | HO.POSTANES ---
Post Anesthesia Evaluation Post Anesthesia Evaluation Vital Signs: Vital Signs Temp Pulse Resp BP Pulse Ox 01/17/21 07:48 117 H 133/77 01/17/21 07:41 97.6 F 117 H 18 133/77 98 01/17/21 05:57 18 01/17/21 03:28 96.4 F L 107 H 18 127/59 L 100 01/16/21 23:35 96.8 F 93 18 112/67 100 01/16/21 23:28 96.8 F 108 H 18 126/74 99 Anesthesia: General Mental Status: Awake Pain Control: Satisfactory Nausea/Vomiting: None Hydration: Adequate Anesthesia-Related Issues: No Anes. Related Issues
[2021-01-17] MEDS: Enalapril Maleate 10 MG TABLET 20 MG PO ×2 (09:45→20:54)
[2021-01-17] MEDS: amLODIPine Besylate 10 MG TABLET PO (09:46)
[2021-01-17] MEDS: 0.9 % Sodium Chloride Flush 3 ML SYRINGE IVFLUSH (09:47)
--- NOTE | 2021-01-17 09:53 | HO.PM.IMPN ---
Subjective Subjective Date of Service: 01/17/21 Interval History: some pain Cardiovascular Cardiovascular: Reports no additional cardiovascular complaints Gastrointestinal Gastrointestinal: Reports no additional gastrointestinal complaints Physical Exam Vital Signs: Vital Signs: Last Vital Signs Temp 97.6 F 01/17/21 07:41 Pulse 117 H 01/17/21 07:48 Resp 18 01/17/21 07:41 BP 133/77 01/17/21 07:48 Pulse Ox 98 01/17/21 07:41 Body Mass Index 22.1 General: AO X 3, no acute distress Resp: CTA bilateral CVS: S1,S2,RRR GI: soft, non tender, non distended Neuro: motor grossly intact Psych: appropriate affect Objective Data Current Medications Generic Name Dose Route Start Last Admin Trade Name Freq PRN Reason Stop Dose Admin Acetaminophen 650 mg 01/15/21 04:45 Acetaminophen 325 Mg Tablet PO Q6H PRN Pain, Mild (Pain Scale 1-3) Amlodipine Besylate 10 mg 01/15/21 09:00 01/17/21 09:46 Amlodipine Besylate 10 Mg Tablet PO 10 mg DAILY [facility] Administration Protocol Enalapril Maleate 20 mg 01/15/21 09:00 01/17/21 09:45 Enalapril Maleate 10 Mg Tablet PO 20 mg BID [facility] Administration Protocol Heparin Sodium (Porcine) 5,000 unit 01/15/21 06:00 01/17/21 05:54 Heparin Sodium,Porcine 5,000 Unit/Ml Vial SUBCUT 5,000 unit Q8H [facility] Administration Hydromorphone HCl 0.25 mg 01/15/21 16:25 01/17/21 05:57 Hydromorphone Hcl 0.5 Mg/0.5 Ml Syringe IVPUSH 0.25 mg Q6H PRN Administration Pain, Severe (Pain Scale 7-10) Hydromorphone HCl 0.25 mg 01/16/21 11:50 Hydromorphone Hcl 0.5 Mg/0.5 Ml Syringe IVPUSH Q5M PRN Pain, Severe (Pain Scale 7-10) Ceftriaxone Sodium 1 gm/ 50 mls @ 100 mls/hr 01/16/21 05:00 01/17/21 07:52 Sodium Chloride IV Infused Q24H [facility] Infusion Lactated Ringer's 1,000 mls @ 50 mls/hr 01/16/21 10:15 01/17/21 05:57 Lr IV Not Given .Q20H [facility] Levothyroxine Sodium 88 mcg 01/15/21 06:00 01/17/21 05:47 Levothyroxine Sodium 88 Mcg Tablet PO 88 mcg DAILY@0600 [facility] Administration Ondansetron HCl 4 mg 01/15/21 06:57 01/16/21 17:59 Ondansetron Hcl 4 Mg/2 Ml Vial IVPUSH 4 mg Q6H PRN Administration Nausea and Vomiting Oxycodone HCl 5 mg 01/15/21 04:45 01/16/21 15:46 Oxycodone Hcl Immed Release 5 Mg Tablet PO 5 mg Q6H PRN Administration Pain, Severe (Pain Scale 7-10) Sodium Chloride 3 ml 01/15/21 08:00 01/17/21 09:48 0.9 % Sodium Chloride Flush 3 Ml Syringe IVFLUSH Not Given QSHIFT [facility] Sodium Chloride 3 ml 01/16/21 16:00 01/17/21 09:47 0.9 % Sodium Chloride Flush 3 Ml Syringe IVFLUSH 3 ml QSHIFT [facility] Administration Labs CBC & Chem 7: 01/17/21 06:24 01/17/21 06:24 Microbiology Microbiology Results: Microbiology 01/15/21 03:51 Urine [place] Urine Culture - Final Escherichia coli 01/15/21 04:52 Blood - Venous Blood Culture - Preliminary No growth after 48 hours. 01/15/21 04:52 Blood - Venous Blood Culture - Preliminary Assessment and Plan (1) Intertrochanteric fracture of right femur: Status: Acute Assessment and Plan: 85-year-old female with a past medical history of hypertension, hyperlipidemia, hypothyroidism, osteoporosis presented to the hospital with a chief complaint of fall. Right femur intertrochanteric fracture POD 1 afib on computer reading of EKG determined to be NSR with PACs ecoli uti pansensitive continue ceftriaxone GPC in blood suspect contaminant, monitor Hypothyroidism levothyroxine
--- NOTE | 2021-01-17 09:58 | PM.PNORT ---
Subjective Subjective Date of Service: 01/17/21 Interval history: POD1 s/p right hip IM Nail with Dr. Mai. Patient is resting comfortably in bed. Pain well controlled. No overnight events. Physical Exam Vital Signs: Vital Signs: Last Vital Signs Temp 97.6 F 01/17/21 07:41 Pulse 117 H 01/17/21 07:48 Resp 18 01/17/21 07:41 BP 133/77 01/17/21 07:48 Pulse Ox 98 01/17/21 07:41 Body Mass Index 22.1 Const: General: cooperative, healthy appearing and no acute distress Resp: Effort & Inspection: normal respiratory effort and able to speak in complete sentences Cardio: Rate: regular rate Peripheral pulses: Peripheral pulses 2+ throughout GI: Palpation (GI): Soft to palpation Skin: Lesions: no lesions Rashes: no rashes Extrem: Other: Right hip no ecchymosis, redness, or drainage. Bandages are clean dry and intact. Patient is able to plantar and dorsi flex. Pedal pulse intact. Progress Note: A&P Assessment and plan (1) Intertrochanteric fracture of right femur: Status: Acute Assessment and Plan: Continue pain mgmnt Begin ASA for dvt ppx begin PT for right hip IM Nail Dispo planning-Pending PT eval, pain mgmnt Fall Risk Details Current Medications: Current Medications Generic Name Dose Route Start Last Admin Trade Name Freq PRN Reason Stop Dose Admin Acetaminophen 650 mg 01/15/21 04:45 Acetaminophen 325 Mg Tablet PO Q6H PRN Pain, Mild (Pain Scale 1-3) Amlodipine Besylate 10 mg 01/15/21 09:00 01/17/21 09:46 Amlodipine Besylate 10 Mg Tablet PO 10 mg DAILY [facility] Administration Protocol Enalapril Maleate 20 mg 01/15/21 09:00 01/17/21 09:45 Enalapril Maleate 10 Mg Tablet PO 20 mg BID [facility] Administration Protocol Heparin Sodium (Porcine) 5,000 unit 01/15/21 06:00 01/17/21 05:54 Heparin Sodium,Porcine 5,000 Unit/Ml Vial SUBCUT 5,000 unit Q8H [facility] Administration Hydromorphone HCl 0.25 mg 01/15/21 16:25 01/17/21 05:57 Hydromorphone Hcl 0.5 Mg/0.5 Ml Syringe IVPUSH 0.25 mg Q6H PRN Administration Pain, Severe (Pain Scale 7-10) Hydromorphone HCl 0.25 mg 01/16/21 11:50 Hydromorphone Hcl 0.5 Mg/0.5 Ml Syringe IVPUSH Q5M PRN Pain, Severe (Pain Scale 7-10) Ceftriaxone Sodium 1 gm/ 50 mls @ 100 mls/hr 01/16/21 05:00 01/17/21 07:52 Sodium Chloride IV Infused Q24H [facility] Infusion Lactated Ringer's 1,000 mls @ 50 mls/hr 01/16/21 10:15 01/17/21 05:57 Lr IV Not Given .Q20H [facility] Levothyroxine Sodium 88 mcg 01/15/21 06:00 01/17/21 05:47 Levothyroxine Sodium 88 Mcg Tablet PO 88 mcg DAILY@0600 [facility] Administration Ondansetron HCl 4 mg 01/15/21 06:57 01/16/21 17:59 Ondansetron Hcl 4 Mg/2 Ml Vial IVPUSH 4 mg Q6H PRN Administration Nausea and Vomiting Oxycodone HCl 5 mg 01/15/21 04:45 01/16/21 15:46 Oxycodone Hcl Immed Release 5 Mg Tablet PO 5 mg Q6H PRN Administration Pain, Severe (Pain Scale 7-10) Sodium Chloride 3 ml 01/15/21 08:00 01/17/21 09:48 0.9 % Sodium Chloride Flush 3 Ml Syringe IVFLUSH Not Given QSHIFT [facility] Sodium Chloride 3 ml 01/16/21 16:00 01/17/21 09:47 0.9 % Sodium Chloride Flush 3 Ml Syringe IVFLUSH 3 ml QSHIFT [facility] Administration Time Spent With Patient Time: Total time spent is greater than 50% in coordination of care (as documented) at patient's floor/unit and/or counseling patient: Time with patient: less than 15 minutes
[2021-01-17] MEDS: Aspirin 325 MG TABLET PO ×2 (12:55→20:54)
--- NOTE | 2021-01-17 13:52 | MHC.CM.PN ---
PER HOSPITALIST ROUNDS, NO CURRENT ORIGIN FOR FEVER OF DISCUSSION. CASE MANAGEMENT FOLLOWING FOR PATIENT'S RETURN HOME WITH EPIC [facility] RESUMPTION.
--- NOTE | 2021-01-17 14:00 | MHC.CM.PN ---
JORGE BUCKNER UPDATED IN [employer]. PLAN IS DISCHARGE Wednesday01/18/21
[2021-01-17] MEDS: oxyCODONE HCl Immed Release 5 MG TABLET PO (20:54)
[2021-01-18] VITALS (9 sets, daily range): BP systolic 103–147; BP diastolic 56–91; PULSE 104–128; RESP 18–19; TEMP 36.2–36.9; O2SAT 95–99
--- NOTE | 2021-01-18 | ECG_ITS ---
Test Reason : TACGYCARDIA Blood Pressure : / mmHG Vent. Rate : 120 BPM Atrial Rate : 120 BPM P-R Int : 168 ms QRS Dur : 060 ms QT Int : 314 ms P-R-T Axes : 000 -12 061 degrees QTc Int : 443 ms Sinus tachycardia with Premature atrial complexes Nonspecific ST abnormality Abnormal ECG No significant changes when compared with the previous EKG of 15 january 2021 Referred By: Galo Cooley Electronically Signed By:JORGE MASON
[2021-01-18] MEDS: diphenhydrAMINE HCL 25 MG TABLET PO (02:35)
[2021-01-18 06:22] LABS: MANUAL DIFF FLAG NO
[2021-01-18] MEDS: oxyCODONE HCl Immed Release 5 MG TABLET PO ×2 (06:23→16:00)
[2021-01-18] MEDS: Heparin Sodium,Porcine 5,000 UNIT/ML VIAL 5000 UNIT SUBCUT ×3 (06:23→21:51)
[2021-01-18] MEDS: cefTRIAXone sodium 1 GM in 0.9 % Sodium Chloride 50 ML IV (06:23)
[2021-01-18] MEDS: Levothyroxine Sodium 88 MCG TABLET PO (06:23)
[2021-01-18 06:28] LABS: Basophils Percent Auto 0.4 % (0-2); Eosinophils Absolute Auto 0.1 X10*3/uL (0.0-0.4); Eosinophils Percent Auto 0.5 % (0-4); Hematocrit 32.5 % (37-47); Hemoglobin 11.1 g/dl (12.0-16.0); Imm Gran Abs Auto 0.05 X10*3/uL (0.00-0.03); Imm Gran Pct Auto 0.5 % (0.0-0.4); Lymphocytes Absolute Auto 1.9 X10*3/uL (1.2-4.9); Lymphocytes Percent Auto 19.3 % (20-40); Mean Corpuscular HGB Conc 34.2 g/dl (31.0-35.0); Mean Corpuscular Hemoglobin 29.8 pg (27.0-33.0); Mean Corpuscular Volume 87.4 fL (80-98); Mean Platelet Volume 10.8 fL (9.4-12.3); Monocytes Absolute Auto 0.9 X10*3/uL (0.1-1.2); Monocytes Percent Auto 8.9 % (2-11); Neutrophils Absolute Auto 7.1 X10*3/uL (2.0-8.3); Neutrophils Percent Auto 70.4 % (45-73); Platelet Count 220 X10*3/uL (160-400); Red Blood Count 3.72 X10*6/uL (4.20-5.50); Red Cell Distribution Width 12.3 % (11.0-16.0); White Blood Count 10.1 X10*3/uL (4.8-10.8)
[2021-01-18 06:53] LABS: Anion Gap 13 (12-20); Blood Urea Nitrogen 18 mg/dL (9-16); Calcium 8.1 mg/dL (8.4-10.2); Carbon Dioxide 24 mmol/L (22-29); Chloride 104 mmol/L (96-108); Creatinine Clr Calc Pharmacy 59.3; Estimated Glomerular Filt Rate > 60; Glucose Fasting 132 mg/dL (60-99); Potassium 3.9 mmol/L (3.3-5.1); Sodium 137 mmol/L (135-145)
--- NOTE | 2021-01-18 07:38 | PC.NURSE ---
End of note report; Pt s/p R hip repair. POD 1. Pt sinus tach 120-130's sustaining. Prn oxycodone given for pain. Pt denies chest pain/SOB. Dr. Cooley notified. EKG obtained. CTA ordered and negative for PE. Doppler of LE ordered for the morning. Benadryl given for anxiety. Pt educated on the plan of care. Report given to next nurse.
[2021-01-18] MEDS: 0.9 % Sodium Chloride Flush 3 ML SYRINGE IVFLUSH (07:44)
[2021-01-18] MEDS: HYDROmorphone HCl 0.5 MG/0.5 ML SYRINGE 0.25 MG IVPUSH ×3 (07:44→20:21)
[2021-01-18] MEDS: amLODIPine Besylate 10 MG TABLET PO (07:45)
[2021-01-18] MEDS: Enalapril Maleate 10 MG TABLET 20 MG PO ×2 (07:45→20:22)
[2021-01-18] MEDS: Aspirin 325 MG TABLET PO ×2 (07:45→20:21)
--- NOTE | 2021-01-18 09:33 | P.PNIM_ITS ---
Subjective Subjective Date of Service: 01/18/21 Interval History: hip pain Cardiovascular Cardiovascular: Reports no additional cardiovascular complaints Gastrointestinal Gastrointestinal: Reports no additional gastrointestinal complaints Physical Exam Vital Signs: Vital Signs: Last Vital Signs Temp 98 F 01/18/21 03:41 Pulse 119 H 01/18/21 07:52 Resp 18 01/18/21 03:41 BP 147/91 H 01/18/21 07:52 Pulse Ox 98 01/18/21 03:41 Body Mass Index 22.1 General: AO X 3, no acute distress Resp: CTA bilateral CVS: S1,S2,RRR GI: soft, non tender, non distended Neuro: motor grossly intact Psych: appropriate affect Objective Data Current Medications Generic Name Dose Route Start Last Admin Trade Name Freq PRN Reason Stop Dose Admin Acetaminophen 650 mg 01/15/21 04:45 Acetaminophen 325 Mg Tablet PO Q6H PRN Pain, Mild (Pain Scale 1-3) Amlodipine Besylate 10 mg 01/15/21 09:00 01/18/21 07:45 Amlodipine Besylate 10 Mg Tablet PO 10 mg DAILY [facility] Administration Protocol Aspirin 325 mg 01/17/21 11:00 01/18/21 07:45 Aspirin 325 Mg Tablet PO 325 mg BID [facility] Administration Enalapril Maleate 20 mg 01/15/21 09:00 01/18/21 07:45 Enalapril Maleate 10 Mg Tablet PO 20 mg BID [facility] Administration Protocol Heparin Sodium (Porcine) 5,000 unit 01/15/21 06:00 01/18/21 06:23 Heparin Sodium,Porcine 5,000 Unit/Ml Vial SUBCUT 5,000 unit Q8H [facility] Administration Hydromorphone HCl 0.25 mg 01/15/21 16:25 01/18/21 07:44 Hydromorphone Hcl 0.5 Mg/0.5 Ml Syringe IVPUSH 0.25 mg Q6H PRN Administration Pain, Severe (Pain Scale 7-10) Hydromorphone HCl 0.25 mg 01/16/21 11:50 Hydromorphone Hcl 0.5 Mg/0.5 Ml Syringe IVPUSH Q5M PRN Pain, Severe (Pain Scale 7-10) Ceftriaxone Sodium 1 gm/ 50 mls @ 100 mls/hr 01/16/21 05:00 01/18/21 07:29 Sodium Chloride IV Infused Q24H [facility] Infusion Lactated Ringer's 1,000 mls @ 50 mls/hr 01/16/21 10:15 01/18/21 02:35 Lr IV Not Given .Q20H [facility] Levothyroxine Sodium 88 mcg 01/15/21 06:00 01/18/21 06:23 Levothyroxine Sodium 88 Mcg Tablet PO 88 mcg DAILY@0600 [facility] Administration Ondansetron HCl 4 mg 01/15/21 06:57 01/16/21 17:59 Ondansetron Hcl 4 Mg/2 Ml Vial IVPUSH 4 mg Q6H PRN Administration Nausea and Vomiting Oxycodone HCl 5 mg 01/15/21 04:45 01/18/21 06:23 Oxycodone Hcl Immed Release 5 Mg Tablet PO 5 mg Q6H PRN Administration Pain, Severe (Pain Scale 7-10) Sodium Chloride 3 ml 01/15/21 08:00 01/18/21 07:44 0.9 % Sodium Chloride Flush 3 Ml Syringe IVFLUSH 3 ml QSHIFT [facility] Administration Sodium Chloride 3 ml 01/16/21 16:00 01/18/21 08:49 0.9 % Sodium Chloride Flush 3 Ml Syringe IVFLUSH Not Given QSHIFT [facility] Labs CBC & Chem 7: 01/18/21 05:29 01/18/21 05:29 Microbiology Microbiology Results: Microbiology 01/15/21 04:52 Blood - Venous Blood Culture - Final Coag negative Staphylococcus 01/15/21 03:51 Urine [place] Urine Culture - Final Escherichia coli 01/15/21 04:52 Blood - Venous Blood Culture - Preliminary No growth after 48 hours. Assessment and Plan (1) Intertrochanteric fracture of right femur: Status: Acute Assessment and Plan: 85-year-old female with a past medical history of hypertension, hyperlipidemia, hypothyroidism, osteoporosis presented to the hospital with a chief complaint of fall. Right femur intertrochanteric fracture POD 2 needs better pain control, will increase frequency of hydromorphone afib on computer reading of EKG determined to be NSR with PACs ecoli uti pansensitive continue ceftriaxone coag negative staph contaminant Hypothyroidism levothyroxine
--- NOTE | 2021-01-18 11:19 | MHC.CM.PN ---
Addendum entered by Faith Buchanan 01/18/21 11:20: DAUGHTER REYNA [phone]. SHE WILL BE IN TO VISIT TODAY Original Note: PATIENT WILL NOT BE DC TO [facility] TODAY ORIGINALLY PLANNED. HR IS IN 130S. FACILITY AND DAUGHTER MADE AWARE. [facility] CONTINUING TO FOLLOW
[2021-01-18] MEDS: Acetaminophen 325 MG TABLET 650 MG PO (16:00)
--- NOTE | 2021-01-18 16:07 | P.PNOP_ITS ---
Subjective Subjective Date of Service: 01/18/21 Interval history: POD 2 s/p left hip IMN no overnight events, she is doing well, states PT was uncomfortable due to the pain. No concerns. Physical Exam Vital Signs: Vital Signs: Last Vital Signs Temp 98.1 F 01/18/21 15:32 Pulse 120 H 01/18/21 15:32 Resp 19 01/18/21 15:32 BP 103/56 L 01/18/21 15:32 Pulse Ox 98 01/18/21 15:32 Body Mass Index 22.1 Const: General: cooperative, healthy appearing and no acute distress Resp: Effort & Inspection: normal respiratory effort and able to speak in complete sentences Cardio: Rate: regular rate Peripheral pulses: Peripheral pulses 2+ throughout GI: Palpation (GI): Soft to palpation Skin: General skin exam: no rashes or lesions noted Extrem: Other: Left hip incision clean, dry and intact. No erythema, no swelling. Sensation intact. Progress Note: A&P Assessment and plan (1) Intertrochanteric fracture of right femur: Status: Acute Assessment and Plan: Continue pain mgmnt continue asa for dvt ppx Dispo planning-Pending med clearance Fall Risk Details Current Medications: Current Medications Generic Name Dose Route Start Last Admin Trade Name Freq PRN Reason Stop Dose Admin Acetaminophen 650 mg 01/15/21 04:45 01/18/21 16:00 Acetaminophen 325 Mg Tablet PO 650 mg Q6H PRN Administration Pain, Mild (Pain Scale 1-3) Amlodipine Besylate 10 mg 01/15/21 09:00 01/18/21 07:45 Amlodipine Besylate 10 Mg Tablet PO 10 mg DAILY [facility] Administration Protocol Aspirin 325 mg 01/17/21 11:00 01/18/21 07:45 Aspirin 325 Mg Tablet PO 325 mg BID [facility] Administration Enalapril Maleate 20 mg 01/15/21 09:00 01/18/21 07:45 Enalapril Maleate 10 Mg Tablet PO 20 mg BID [facility] Administration Protocol Heparin Sodium (Porcine) 5,000 unit 01/15/21 06:00 01/18/21 15:41 Heparin Sodium,Porcine 5,000 Unit/Ml Vial SUBCUT 5,000 unit Q8H [facility] Administration Hydromorphone HCl 0.25 mg 01/16/21 11:50 Hydromorphone Hcl 0.5 Mg/0.5 Ml Syringe IVPUSH Q5M PRN Pain, Severe (Pain Scale 7-10) Hydromorphone HCl 0.25 mg 01/18/21 09:33 Hydromorphone Hcl 0.5 Mg/0.5 Ml Syringe IVPUSH Q2H PRN Pain, Severe (Pain Scale 7-10) Ceftriaxone Sodium 1 gm/ 50 mls @ 100 mls/hr 01/16/21 05:00 01/18/21 07:29 Sodium Chloride IV Infused Q24H [facility] Infusion Lactated Ringer's 1,000 mls @ 50 mls/hr 01/16/21 10:15 01/18/21 02:35 Lr IV Not Given .Q20H [facility] Levothyroxine Sodium 88 mcg 01/15/21 06:00 01/18/21 06:23 Levothyroxine Sodium 88 Mcg Tablet PO 88 mcg DAILY@0600 [facility] Administration Ondansetron HCl 4 mg 01/15/21 06:57 01/16/21 17:59 Ondansetron Hcl 4 Mg/2 Ml Vial IVPUSH 4 mg Q6H PRN Administration Nausea and Vomiting Oxycodone HCl 5 mg 01/15/21 04:45 01/18/21 16:00 Oxycodone Hcl Immed Release 5 Mg Tablet PO 5 mg Q6H PRN Administration Pain, Severe (Pain Scale 7-10) Sodium Chloride 3 ml 01/15/21 08:00 01/18/21 07:44 0.9 % Sodium Chloride Flush 3 Ml Syringe IVFLUSH 3 ml QSHIFT [facility] Administration Sodium Chloride 3 ml 01/16/21 16:00 01/18/21 15:41 0.9 % Sodium Chloride Flush 3 Ml Syringe IVFLUSH Not Given [facility] Time Spent With Patient Time: Total time spent is greater than 50% in coordination of care (as documented) at patient's floor/unit and/or counseling patient: Time with patient: less than 15 minutes
[2021-01-18] MEDS: ondansetron HCL 4 MG/2 ML VIAL IVPUSH (17:31)
[2021-01-18] MEDS: Lactated Ringers 1,000 ML 50 ML IV (21:51)
[2021-01-19] VITALS (8 sets, daily range): BP systolic 96–117; BP diastolic 48–60; PULSE 90–107; RESP 16–18; TEMP 36.1–36.7; O2SAT 97–100
[2021-01-19] MEDS: cefTRIAXone sodium 1 GM in 0.9 % Sodium Chloride 50 ML IV (04:33)
[2021-01-19] MEDS: Heparin Sodium,Porcine 5,000 UNIT/ML VIAL 5000 UNIT SUBCUT ×3 (05:11→21:03)
[2021-01-19] MEDS: Levothyroxine Sodium 88 MCG TABLET PO (05:11)
[2021-01-19 07:54] LABS: Basophils Percent Auto 0.3 % (0-2); MANUAL DIFF FLAG SCAN; Mean Corpuscular Volume 90.4 fL (80-98); PLT CLUMP 1; Red Blood Count 3.87 X10*6/uL (4.20-5.50); Red Cell Distribution Width 12.6 % (11.0-16.0); SCAN SMEAR FLAG 1
[2021-01-19 07:56] LABS: Eosinophils Absolute Auto 0.2 X10*3/uL (0.0-0.4); Eosinophils Percent Auto 1.7 % (0-4); Hemoglobin 11.4 g/dl (12.0-16.0); Imm Gran Abs Auto 0.06 X10*3/uL (0.00-0.03); Imm Gran Pct Auto 0.7 % (0.0-0.4); Lymphocytes Absolute Auto 2.2 X10*3/uL (1.2-4.9); Lymphocytes Percent Auto 25.3 % (20-40); Mean Corpuscular HGB Conc 32.6 g/dl (31.0-35.0); Mean Corpuscular Hemoglobin 29.5 pg (27.0-33.0); Monocytes Absolute Auto 0.7 X10*3/uL (0.1-1.2); Monocytes Percent Auto 8.4 % (2-11); Neutrophils Absolute Auto 5.6 X10*3/uL (2.0-8.3); Neutrophils Percent Auto 63.6 % (45-73)
[2021-01-19 08:11] LABS: Anion Gap 13 (12-20); Blood Urea Nitrogen 21 mg/dL (9-16); Calcium 8.4 mg/dL (8.4-10.2); Carbon Dioxide 26 mmol/L (22-29); Chloride 103 mmol/L (96-108); Creatinine Clr Calc Pharmacy 59.3; Estimated Glomerular Filt Rate > 60; Glucose Fasting 130 mg/dL (60-99); Sodium 138 mmol/L (135-145)
[2021-01-19 08:26] LABS: White Blood Count 8.9 X10*3/uL (4.8-10.8)
[2021-01-19 08:27] LABS: SLIDE REVIEW VERIFIED
[2021-01-19] MEDS: Enalapril Maleate 10 MG TABLET 20 MG PO ×2 (08:41→21:00)
[2021-01-19] MEDS: Aspirin 325 MG TABLET PO ×2 (08:41→21:02)
[2021-01-19] MEDS: 0.9 % Sodium Chloride Flush 3 ML SYRINGE IVFLUSH ×2 (08:42→21:03)
[2021-01-19] MEDS: oxyCODONE HCl Immed Release 5 MG TABLET PO ×2 (08:43→21:01)
[2021-01-19] MEDS: Metoprolol Tartrate 25 MG TABLET PO ×2 (08:43→21:01)
--- NOTE | 2021-01-19 09:26 | HO.PM.IMPN ---
Subjective Subjective Date of Service: 01/19/21 Interval History: pain initiallly better yesterday but worse this am Cardiovascular Cardiovascular: Reports no additional cardiovascular complaints Respiratory Respiratory: Reports no additional respiratory complaints Physical Exam Vital Signs: Vital Signs: Last Vital Signs Temp 97.4 F 01/19/21 08:00 Pulse 105 H 01/19/21 08:00 Resp 18 01/19/21 08:00 BP 114/60 01/19/21 08:00 Pulse Ox 98 01/19/21 08:00 Body Mass Index 22.1 General: AO X 3, no acute distress Resp: CTA bilateral CVS: S1,S2,RRR GI: soft, non tender, non distended Neuro: motor grossly intact Psych: appropriate affect Objective Data Current Medications Generic Name Dose Route Start Last Admin Trade Name Freq PRN Reason Stop Dose Admin Acetaminophen 650 mg 01/15/21 04:45 01/18/21 16:00 Acetaminophen 325 Mg Tablet PO 650 mg Q6H PRN Administration Pain, Mild (Pain Scale 1-3) Aspirin 325 mg 01/17/21 11:00 01/19/21 08:41 Aspirin 325 Mg Tablet PO 325 mg BID [facility] Administration Enalapril Maleate 20 mg 01/15/21 09:00 01/19/21 08:41 Enalapril Maleate 10 Mg Tablet PO 20 mg BID [facility] Administration Protocol Heparin Sodium (Porcine) 5,000 unit 01/15/21 06:00 01/19/21 05:11 Heparin Sodium,Porcine 5,000 Unit/Ml Vial SUBCUT 5,000 unit Q8H [facility] Administration Hydromorphone HCl 0.25 mg 01/16/21 11:50 Hydromorphone Hcl 0.5 Mg/0.5 Ml Syringe IVPUSH Q5M PRN Pain, Severe (Pain Scale 7-10) Hydromorphone HCl 0.5 mg 01/19/21 08:36 Hydromorphone Hcl 0.5 Mg/0.5 Ml Syringe IVPUSH Q2H PRN Pain, Severe (Pain Scale 7-10) Ceftriaxone Sodium 1 gm/ 50 mls @ 100 mls/hr 01/16/21 05:00 01/19/21 05:08 Sodium Chloride IV Infused Q24H [facility] Infusion Lactated Ringer's 1,000 mls @ 50 mls/hr 01/16/21 10:15 01/18/21 21:51 Lr IV 50 mls/hr .Q20H [facility] Administration Levothyroxine Sodium 88 mcg 01/15/21 06:00 01/19/21 05:11 Levothyroxine Sodium 88 Mcg Tablet PO 88 mcg DAILY@0600 [facility] Administration Metoprolol Tartrate 25 mg 01/19/21 09:00 01/19/21 08:43 Metoprolol Tartrate 25 Mg Tablet PO 25 mg BID [facility] Administration Protocol Ondansetron HCl 4 mg 01/15/21 06:57 01/18/21 17:31 Ondansetron Hcl 4 Mg/2 Ml Vial IVPUSH 4 mg Q6H PRN Administration Nausea and Vomiting Oxycodone HCl 5 mg 01/15/21 04:45 01/19/21 08:43 Oxycodone Hcl Immed Release 5 Mg Tablet PO 5 mg Q6H PRN Administration Pain, Severe (Pain Scale 7-10) Sodium Chloride 3 ml 01/15/21 08:00 01/19/21 08:42 0.9 % Sodium Chloride Flush 3 Ml Syringe IVFLUSH 3 ml QSSDFT [facility] Administration Sodium Chloride 3 ml 01/16/21 16:00 01/19/21 08:52 0.9 % Sodium Chloride Flush 3 Ml [facility]USH [facility] CBC & Chem 7: 01/19/21 07:25 01/19/21 07:25 Microbiology Microbiology Results: Microbiology 01/15/21 04:52 Blood - Venous Blood Culture - Final Coag negative Staphylococcus 01/15/21 03:51 Urine [place] Urine Culture - Final Escherichia coli 01/15/21 04:52 Blood - Venous Blood Culture - Preliminary No growth after 48 hours. Assessment and Plan (1) Intertrochanteric fracture of right femur: Status: Acute Assessment and Plan: 85-year-old female with a past medical history of hypertension, hyperlipidemia, hypothyroidism, osteoporosis presented to the hospital with a chief complaint of fall. Right femur intertrochanteric fracture POD 3 still with pain, increased dilaudid to 0.5mg q2h prn afib on computer reading of EKG determined to be NSR with PACs ecoli uti completed rocephin course coag negative staph contaminant Hypothyroidism levothyroxine
[2021-01-19] MEDS: HYDROmorphone HCl 0.5 MG/0.5 ML SYRINGE IVPUSH (13:12)
--- NOTE | 2021-01-19 13:17 | P.PNOP_ITS ---
Subjective Subjective Date of Service: 01/19/21 Interval history: Right hip IMN pod 3 still have some discomfort in right hip-tolerating PT and medication well, denies concerns no overnight events Physical Exam Vital Signs: Vital Signs: Last Vital Signs Temp 97.8 F 01/19/21 12:00 Pulse 90 01/19/21 12:00 Resp 18 01/19/21 12:00 BP 117/59 L 01/19/21 12:00 Pulse Ox 100 01/19/21 12:00 Body Mass Index 22.1 Const: General: cooperative, healthy appearing and no acute distress Resp: Effort & Inspection: normal respiratory effort and able to speak in complete sentences Cardio: Rate: regular rate Peripheral pulses: Peripheral pulses 2+ throu ghout GI: Palpation (GI): Soft to palpation Skin: General skin exam: no rashes or lesions noted Extrem: Other: Right hip incision c/d/. no erythema, mild edema, NVI Progress Note: A&P Assessment and plan (1) Intertrochanteric fracture of right femur: Status: Acute Assessment and Plan: Continue pain mgmnt continue asa dvt ppx cont PT/OT for RT hip IMN Dispo planning-Pending med clearance Fall Risk Details Current Medications: Current Medications Generic Name Dose Route Start Last Admin Trade Name Freq PRN Reason Stop Dose Admin Acetaminophen 650 mg 01/15/21 04:45 01/18/21 16:00 Acetaminophen 325 Mg Tablet PO 650 mg Q6H PRN Administration Pain, Mild (Pain Scale 1-3) Aspirin 325 mg 01/17/21 11:00 01/19/21 08:41 Aspirin 325 Mg Tablet PO 325 mg BID [facility] Administration Enalapril Maleate 20 mg 01/15/21 09:00 01/19/21 08:41 Enalapril Maleate 10 Mg Tablet PO 20 mg BID [facility] Administration Protocol Heparin Sodium (Porcine) 5,000 unit 01/15/21 06:00 01/19/21 05:11 Heparin Sodium,Porcine 5,000 Unit/Ml Vial SUBCUT 5,000 unit Q8H [facility] Administration Hydromorphone HCl 0.25 mg 01/16/21 11:50 Hydromorphone Hcl 0.5 Mg/0.5 Ml Syringe IVPUSH Q5M PRN Pain, Severe (Pain Scale 7-10) Hydromorphone HCl 0.5 mg 01/19/21 08:36 Hydromorphone Hcl 0.5 Mg/0.5 Ml Syringe IVPUSH Q2H PRN Pain, Severe (Pain Scale 7-10) Lactated Ringer's 1,000 mls @ 50 mls/hr 01/16/21 10:15 01/18/21 21:51 Lr IV 50 mls/hr .Q20H [facility] Administration Levothyroxine Sodium 88 mcg 01/15/21 06:00 01/19/21 05:11 Levothyroxine Sodium 88 Mcg Tablet PO 88 mcg DAILY@0600 [facility] Administration Metoprolol Tartrate 25 mg 01/19/21 09:00 01/19/21 08:43 Metoprolol Tartrate 25 Mg Tablet PO 25 mg BID [facility] Administration Protocol Ondansetron HCl 4 mg 01/15/21 06:57 01/18/21 17:31 Ondansetron Hcl 4 Mg/2 Ml Vial IVPUSH 4 mg Q6H PRN Administration Nausea and Vomiting Oxycodone HCl 5 mg 01/15/21 04:45 01/19/21 08:43 Oxycodone Hcl Immed Release 5 Mg Tablet PO 5 mg Q6H PRN Administration Pain, Severe (Pain Scale 7-10) Sodium Chloride 3 ml 01/15/21 08:00 01/19/21 08:42 0.9 % Sodium Chloride Flush 3 Ml Syringe IVFLUSH 3 ml QSNJFT [facility] Administration Sodium Chloride 3 ml 01/16/21 16:00 01/19/21 08:52 0.9 % Sodium Chloride Flush 3 Ml Syringe [facility]USH [facility] Time Spent With Patient Time: Total time spent is greater than 50% in coordination of care (as documented) at patient's floor/unit and/or counseling patient: Time with patient: less than 15 minutes
--- NOTE | 2021-01-19 13:46 | PC.NURSE ---
jean-baptiste cath removed at 13:30 pm, pt has stage 2 to her coccyx , barrier cream applied
[2021-01-19] MEDS: Lactated Ringers 1,000 ML 50 ML IV (17:13)
[2021-01-20 03:57] VITALS: BP 113/61; PULSE 96; RESP 18; TEMP 36.2; O2SAT 99
[2021-01-20] MEDS: Levothyroxine Sodium 88 MCG TABLET PO (05:32)
[2021-01-20] MEDS: Heparin Sodium,Porcine 5,000 UNIT/ML VIAL 5000 UNIT SUBCUT (05:33)
[2021-01-20 06:47] LABS: MANUAL DIFF FLAG NO
[2021-01-20 06:50] LABS: Basophils Percent Auto 0.5 % (0-2); Eosinophils Absolute Auto 0.2 X10*3/uL (0.0-0.4); Eosinophils Percent Auto 2.1 % (0-4); Hematocrit 31.9 % (37-47); Hemoglobin 10.6 g/dl (12.0-16.0); Imm Gran Abs Auto 0.05 X10*3/uL (0.00-0.03); Imm Gran Pct Auto 0.6 % (0.0-0.4); Lymphocytes Absolute Auto 1.6 X10*3/uL (1.2-4.9); Lymphocytes Percent Auto 20.2 % (20-40); Mean Corpuscular HGB Conc 33.2 g/dl (31.0-35.0); Mean Corpuscular Hemoglobin 29.7 pg (27.0-33.0); Mean Corpuscular Volume 89.4 fL (80-98); Mean Platelet Volume 9.8 fL (9.4-12.3); Monocytes Absolute Auto 0.8 X10*3/uL (0.1-1.2); Monocytes Percent Auto 9.5 % (2-11); Neutrophils Absolute Auto 5.5 X10*3/uL (2.0-8.3); Neutrophils Percent Auto 67.1 % (45-73); Platelet Count 288 X10*3/uL (160-400); Red Blood Count 3.57 X10*6/uL (4.20-5.50); Red Cell Distribution Width 12.2 % (11.0-16.0); White Blood Count 8.1 X10*3/uL (4.8-10.8)
[2021-01-20 07:10] VITALS: BP 112/51; PULSE 95; RESP 18; TEMP 36.7; O2SAT 100
[2021-01-20 07:14] LABS: Anion Gap 16 (12-20); Blood Urea Nitrogen 14 mg/dL (9-16); Calcium 8.2 mg/dL (8.4-10.2); Carbon Dioxide 22 mmol/L (22-29); Chloride 104 mmol/L (96-108); Creatinine Clr Calc Pharmacy 61.3; Estimated Glomerular Filt Rate > 60; Glucose Fasting 123 mg/dL (60-99); Magnesium 2.2 mg/dL (1.6-2.6); Potassium 4.3 mmol/L (3.3-5.1); Sodium 138 mmol/L (135-145)
[2021-01-20 08:39] VITALS: BP 112/51; PULSE 95
[2021-01-20] MEDS: Aspirin 325 MG TABLET PO (08:39)
[2021-01-20] MEDS: 0.9 % Sodium Chloride Flush 3 ML SYRINGE IVFLUSH ×2 (08:39)
[2021-01-20] MEDS: Metoprolol Tartrate 25 MG TABLET PO (08:39)
[2021-01-20] MEDS: Enalapril Maleate 10 MG TABLET 20 MG PO (08:39)
[2021-01-20] MEDS: HYDROmorphone HCl 2 MG TABLET 1 MG PO (11:16)
[2021-01-20 11:50] VITALS: BP 104/52; PULSE 86; RESP 18; TEMP 36.8; O2SAT 97
--- NOTE | 2021-01-20 15:19 | MHC.CM.PN ---
Addendum entered by Glo Katz 01/20/21 15:27: THE CORRECT PHONE NUMBER FOR PTS DAUGHTER, CHANEL IS [phone] Original Note: ENA and met with pt while her daughter, Chanel ([phone]) was on Face Time. Pt reports her only concern is she does not have enough clothes with her for STR. Pts daughter informed her she had dropped off clothes for her. Pt is agreeable to go to [facility] today. pt will go to [facility] on [address] where she has been in the past. Updates sent to [facility] and a tentative time of 1700 hours was agreed on pending results of COVID-19 swab pt will be transported via [facility]
--- NOTE | 2021-01-20 15:20 | PM.DS ---
DS: Providers Provider Date of Service: 01/20/21 Date of admission: 01/15/21 04:45 Primary care physician: Mitzy Corona MD Consults: 01/15/21 04:45 Consult to Cardiology Routine Consulting Provider: Mike Phipps Reason for consultation: New afib Consult to Orthopedics Routine Consulting Provider: Marcelino Munoz Reason for consultation: hip fx DS: Diagnosis Discharge Diagnosis (1) Intertrochanteric fracture of right femur: Status: Acute (2) PAC (premature atrial contraction): Status: Acute (3) Right hip pain: Status: Acute (4) UTI (urinary tract infection): Status: Acute DS: Medications Discharge Medications Home Medications: Home Medications Medication Instructions Recorded Confirmed alendronate 70 mg tablet 70 mg PO QWEEK 12/25/20 01/15/21 enalapril maleate 20 mg tablet 20 mg PO BID 12/25/20 01/15/21 levothyroxine 88 mcg tablet 88 mcg PO DAILY 12/25/20 01/15/21 Previous Rx's Medication Instructions Recorded aspirin 325 mg PO BID #60 tab 01/20/21 hydromorphone 1 mg PO Q3H PRN #10 tab 01/20/21 metoprolol tartrate 25 mg PO BID #60 tab 01/20/21 DS: Summary Hospital Course Hospital Course: Patient was admitted for fall complicated by right femur intertrochanteric fracture. Initially there was concern over atrial fibrillation. However patient was seen by Cardiology and this was felt to be normal sinus rhythm with PACs. Patient underwent operative fixation of right hip with locked short gamma nail on 01/16/2021. Postoperatively patient had some difficulty with pain control which was eventually managed with hydromorphone. She was also having inappropriate tachycardia out of proportion to her pain. Her amlodipine was discontinued and she was started on metoprolol tartrate. Heart rate then became much better controlled. Blood pressure control has been good. Patient was also noted to have dysuria E coli UTI. She was treated with several days of IV ceftriaxone. Patient is now feeling better and ready for short-term rehab at assisted facility. She will go with poor weeks of aspirin 325 mg b.i.d. for DVT prophylaxis. She will follow up with Orthopedics. Time Spent with Patient Time attestation: Total time spent providing and/or coordinating discharge services: Discharge coordination time: Greater than 30 minutes Physical Exam Vital Signs: Vital Signs: Last Vital Signs Temp 98.2 F 01/20/21 11:50 Pulse 86 01/20/21 11:50 Resp 18 01/20/21 11:50 BP 104/52 L 01/20/21 11:50 Pulse Ox 97 01/20/21 11:50 Body Mass Index 22.1 General: AO X 3, no acute distress Resp: CTA bilateral CVS: S1,S2,RRR GI: soft, non tender, non distended Neuro: motor grossly intact Psych: appropriate affect DS: Data Data Completed and Pending Labs on day of discharge: Laboratory Results - last 24 hr 01/20/21 01/20/21 06:36 06:36 WBC 8.1 RBC 3.57 L Hgb 10.6 L Hct 31.9 L MCV 89.4 MCH 29.7 MCHC 33.2 RDW 12.2 Plt Count 288 D MPV 9.8 Immature Gran % (Auto) 0.6 H Neut % (Auto) 67.1 Lymph % (Auto) 20.2 [place] % (Auto) 9.5 Eos % (Auto) 2.1 Baso % (Auto) 0.5 Lymph # (Auto) 1.6 [place] # (Auto) 0.8 Eos # (Auto) 0.2 Baso # (Auto) 0.0 Abs Immat Gran (auto) 0.05 H Absolute Neuts (auto) 5.5 Absolute Nucleated RBC 0.000 Nucleated RBC % (auto) 0.0 Sodium 138 Potassium 4.3 Chloride 104 Carbon Dioxide 22 Anion Gap 16 BUN 14 Creatinine 0.60 Estim Creat Clear Calc 61.3 Estimated GFR > 60 Fasting Glucose 123 H Calcium 8.2 L Magnesium 2.2 Discharge Plan Discharge Patient Disposition: er [facility] Referrals: Namita Epps [place] [Outside] Mitzy Corona MD [Primary Care Provider] - Suzette Simmons PA-C [Physician Motorcycle Mechanic] - (2 wks post op) Discharge Medications: New metoprolol tartrate 25 mg Tablet 25 mg PO BID Qty: 60 RF: 0 aspirin 325 mg Tablet 325 mg PO BID Qty: 60 RF: 0 hydromorphone 2 mg Tablet 1 mg PO Q3H PRN (Reason: Pain) Qty: 10 RF: 0 Continued levothyroxine 88 mcg tablet 88 mcg PO DAILY RF: 0 alendronate 70 mg tablet 70 mg PO QWEEK RF: 0 enalapril maleate 20 mg tablet 20 mg PO BID RF: 0 Discontinued nabumetone 500 mg tablet 500 mg PO BID PRN (Reason: pain) Qty: 14 RF: 0 tramadol 50 mg tablet 50 mg PO Q8H PRN (Reason: pain) RF: 0 amlodipine 10 mg tablet 10 mg PO DAILY RF: 0 Discharge Orders: Discharge Order (Routine); Ordered 01/20/21 Ordered By: Fernando Martinez Activity on Discharge: As tolerated Stand Alone Forms: Patient Portal Discharge page Activity Restrictions/Additional Instructions: Gait training, strengthening, ADLs Continue ASA for dvt ppx x4 weeks Keep dressing clean,dry and intact-no showering or tub baths Follow up with Orthopedics in 2 weeks Care Plan Goals: recovery Health Concerns: hip fracture Plan of Treatment: dvt prophylaxis, change amlodipine to metoprolol, follow up ortho
[2021-01-20 15:29] VITALS: BP 135/56; PULSE 98; RESP 19; TEMP 37.4; O2SAT 99
[2021-01-20 15:44] LABS: COVID-19 Test Negative (Negative)
== END 2021-01-20 19:12 | disposition skilled nursing facility (03) | DRG 481 ==
LOC: HO.ED 04:34 → HO.EDOVER 04:54 → HO.S3 08:23
PROVIDERS: Orthopaedic Surgery; Admitting Provider Hospitalist; Emergency Provider Student in an Organized Health Care Education/Training Program; PCP Internal Medicine; Visit Provider Internal Medicine
PROC: 0QS604Z Reposition Right Upper Femur with Internal Fixation Device, Open Approach (ICD-10-PCS; principal; 2021-01-16 10:20)
DX: S72.141A Displaced intertrochanteric fracture of right femur, initial encounter for closed fracture (principal); N39.0 Urinary tract infection, site not specified; W01.0XXA Fall on same level from slipping, tripping and stumbling without subsequent striking against object, initial encounter; Y93.9 Activity, unspecified; Y92.009 Unspecified place in unspecified non-institutional (private) residence as the place of occurrence of the external cause; B96.20 Unspecified Escherichia coli [E. coli] as the cause of diseases classified elsewhere; I49.1 Atrial premature depolarization; M81.0 Age-related osteoporosis without current pathological fracture; R00.0 Tachycardia, unspecified; H91.93 Unspecified hearing loss, bilateral; Y99.9 Unspecified external cause status; E03.9 Hypothyroidism, unspecified; E78.5 Hyperlipidemia, unspecified; Z20.822 Contact with and (suspected) exposure to COVID-19; Z79.890 Hormone replacement therapy; Z79.899 Other long term (current) drug therapy
CPT/HCPCS: 36415; 71045; 71275; 73502; 80048; 80053; 81001; 81003; 83605; 83735; 85014; 85018; 85025; 85610; 86850; 86900; 87040; 87086; 87088; 87186; 87205; 87635; 93005; 93306; 93970; 96365; 96375; 97110; 97163; 97166; 97530; 97535; 99283; 99284; 99285; C1713; C1769; J0131; J0690; J0696; J1170; J1885; J2405; J3010; Q0163; Q9967

== ENCOUNTER → 2021-01-31 10:34 | Outpatient (BNVA) | payer MEDICARE, SELFPAY | PROVIDERS: Visit Provider Physician Assistant | DX: S72.144D Nondisplaced intertrochanteric fracture of right femur, subsequent encounter for closed fracture with routine healing (principal) | CPT/HCPCS: 99212 ==

== ENCOUNTER 2021-03-03 12:08 | Outpatient (REF) | payer MEDICARE, SELFPAY ==
--- NOTE | ~2021-03-03 | XR_ITS ---
EXAMINATION: XR HIP, RIGHT CLINICAL INFORMATION: Right intertrochanteric femoral fracture. Follow-up. COMPARISON: Right hip 01/15/2021 TECHNIQUE: AP pelvis and 2 views right hip. FINDINGS: PELVIS: There is normal symmetry of bilateral SI joints and hip joints. There is an old fracture right pubis with hypertrophic bony changes present on 12/25/2020 right hip exam. RIGHT HIP: There is a right hip intertrochanteric fracture with intramedullary femoral brandon and a solitary compression screw through the right femoral neck. The femoral brandon has been stabilized with a small lateral screw in the mid femur region. There is a displaced lesser trochanter fracture. XR/XR hip RT min 2V IMPRESSION: Stabilized right hip intertrochanteric fracture with intramedullary brandon and compression screw with fracture fragments in alignment. There is an old right pubic fracture noted. The soft tissues are unremarkable.
== END 2021-03-03 12:09 | disposition home or self-care (01) ==
LOC: HO.HOSX 12:08
PROVIDERS: Visit Provider Physician Assistant
DX: S72.144A Nondisplaced intertrochanteric fracture of right femur, initial encounter for closed fracture (principal); X58.XXXA Exposure to other specified factors, initial encounter; Y93.9 Activity, unspecified; Y92.9 Unspecified place or not applicable; Y99.8 Other external cause status; M25.551 Pain in right hip; E03.9 Hypothyroidism, unspecified; E78.5 Hyperlipidemia, unspecified; I10 Essential (primary) hypertension; M81.0 Age-related osteoporosis without current pathological fracture; Z87.891 Personal history of nicotine dependence
CPT/HCPCS: 73502; 99212

== ENCOUNTER 2021-03-13 11:32 | Outpatient (REF) | payer MEDICARE, SELFPAY ==
[2021-03-13 14:31] LABS: Alanine Aminotransferase 7 U/L (0-31); Anion Gap 14 (12-20); Aspartate Amino Transferase 9 U/L (5-31); Blood Urea Nitrogen 18 mg/dL (9-16); Calcium 9.1 mg/dL (8.4-10.2); Carbon Dioxide 23 mmol/L (22-29); Chloride 110 mmol/L (96-108); Cholesterol 168 mg/dL; Estimated Glomerular Filt Rate > 60; Glucose Fasting 107 mg/dL (60-99); HDL Cholesterol 55 mg/dL; LDL Cholesterol Calculated 91 mg/dl; Potassium 4.2 mmol/L (3.3-5.1); Sodium 143 mmol/L (135-145); Triglycerides 111 mg/dL
[2021-03-13 14:44] LABS: Free T4 (Free Thyroxine) 1.43 ng/dL (0.71-1.85); Thyroid Stimulating Hormone 0.55 uIU/mL (0.32-4.0); Vitamin D 25-OH Total 27.2 ng/mL (>30)
== END 2021-03-13 11:33 | disposition home or self-care (01) ==
LOC: HO.HMGCLDS 11:32
PROVIDERS: PCP Internal Medicine; Visit Provider Internal Medicine
DX: E03.9 Hypothyroidism, unspecified (principal); E78.5 Hyperlipidemia, unspecified; I10 Essential (primary) hypertension; M81.0 Age-related osteoporosis without current pathological fracture; Z78.0 Asymptomatic menopausal state
CPT/HCPCS: 36415; 80048; 80061; 82306; 84439; 84443; 84450; 84460

== ENCOUNTER → 2021-04-22 12:13 | Outpatient (BNVA) | payer MEDICARE, SELFPAY | PROVIDERS: PCP Internal Medicine; Visit Provider Physician Assistant | DX: S72.144D Nondisplaced intertrochanteric fracture of right femur, subsequent encounter for closed fracture with routine healing (principal) | CPT/HCPCS: 99212 ==

== ENCOUNTER → 2021-06-26 13:24 | Outpatient (BNVA) | payer MEDICARE, SELFPAY | PROVIDERS: PCP Internal Medicine; Visit Provider Internal Medicine | DX: I49.1 Atrial premature depolarization (principal); I05.9 Rheumatic mitral valve disease, unspecified; I10 Essential (primary) hypertension; E03.9 Hypothyroidism, unspecified; M81.0 Age-related osteoporosis without current pathological fracture; Z79.899 Other long term (current) drug therapy | CPT/HCPCS: 99212 ==

== ENCOUNTER 2021-06-30 15:27 | Outpatient (REF) | payer MEDICARE, SELFPAY ==
[2021-07-01 11:51] LABS: Rubeola IgG (Measles) >300.00 AU/mL
== END 2021-06-30 15:28 | disposition home or self-care (01) ==
LOC: HO.LAB 15:27
PROVIDERS: PCP Family Medicine; Visit Provider Family Medicine
DX: Z01.84 Encounter for antibody response examination (principal); Z11.1 Encounter for screening for respiratory tuberculosis; Z71.89 Other specified counseling
CPT/HCPCS: 36415; 86735; 86762; 86765

== ENCOUNTER 2021-07-02 13:09 | Outpatient (REF) | payer MEDICARE, SELFPAY ==
[2021-07-05 11:12] LABS: TS Negative Control Passed; TS Panel A 0; TS Panel B 0; TS Positive Control Passed; TSpotTB Negative (SeeBelow)
== END 2021-07-02 13:10 | disposition home or self-care (01) ==
LOC: HO.LAB 13:09
PROVIDERS: PCP Family Medicine; Visit Provider Family Medicine
DX: Z11.1 Encounter for screening for respiratory tuberculosis (principal)
CPT/HCPCS: 36415; 86481

== ENCOUNTER → 2021-08-19 15:32 | Outpatient (REF) | payer MEDICARE, SELFPAY ==
--- NOTE | 2021-08-19 15:41 | HM_ITS ---
Conclusion: 1. Patient was monitored for total period of 6 days and 5 hours 2. Baseline rhythm is normal sinus rhythm with average heart of 86 beats per minute. 3. No significant pauses or bradycardia noted 4. Frequent supraventricular tachycardia episodes noted with the longest episode lasting 60 beats at 150 beats per minute and the fastest at 192 beats per minute 5. Total of 58,219 PACs noted with overall burden of 7.55% consistent with frequent PACs 6. No patient reported symptoms MTDD
== END ==
LOC: HO.CARD 15:32
PROVIDERS: Visit Provider Internal Medicine
DX: I49.1 Atrial premature depolarization (principal)
CPT/HCPCS: 93242

== ENCOUNTER → 2021-09-22 14:39 | Outpatient (BNVA) | payer MEDICARE, SELFPAY | PROVIDERS: PCP Family Medicine; Referring Provider Family Medicine; Visit Provider Internal Medicine | DX: I49.1 Atrial premature depolarization (principal); I05.9 Rheumatic mitral valve disease, unspecified; I25.10 Atherosclerotic heart disease of native coronary artery without angina pectoris; I49.8 Other specified cardiac arrhythmias | CPT/HCPCS: 99212 ==

== ENCOUNTER 2021-10-18 23:59 | Emergency (ER) | payer MEDICARE, SELFPAY ==
--- NOTE | ~2021-10-18 | XR_ITS ---
EXAMINATION: XR CHEST CLINICAL INFORMATION: Covid. Fever. COMPARISON: 01/15/2021 TECHNIQUE: Frontal view of the chest was obtained. FINDINGS: The lungs are well expanded. There is no focal consolidation, edema, or effusion. Mild bronchial wall thickening noted. No pneumothorax. The cardiomediastinal silhouette is within normal limits. No acute osseous abnormality. Chronic deformity of the left humeral head/neck. XR/XR chest 1V IMPRESSION: No consolidation. Bronchial wall thickening can be seen with a small airways process such as asthma or atypical/viral infection.
[2021-10-19 00:06] VITALS: BP 138/82; BP 149/59; PULSE 101; PULSE 113; RESP 16; TEMP 37.2; O2SAT 97; BMI 23.6
--- NOTE | 2021-10-19 00:14 | ECG_ITS ---
Test Reason : weakness Blood Pressure : / mmHG Vent. Rate : 100 BPM Atrial Rate : 100 BPM P-R Int : 148 ms QRS Dur : 062 ms QT Int : 338 ms P-R-T Axes : 054 -27 042 degrees QTc Int : 436 ms Sinus rhythm with Premature supraventricular complexes Inferior infarct , age undetermined Cannot rule out Anterior infarct , age undetermined Abnormal ECG When compared with ECG of 18-JAN-2021 00:58, Inferior infarct is now Present Referred By: Arlene Triana Electronically Signed By:JORGE MASON
[2021-10-19 00:24] VITALS: RESP 16
--- NOTE | 2021-10-19 00:42 | ED_ITS ---
HPI - General Adult General Chief complaint: Fever Stated complaint: +COVID, FEVER 101.2, WEAKNESS FROM SNF Time Seen by Provider: 10/19/21 00:10 Source: patient and EMS Mode of arrival: EMS Limitations: other (Deaf mute) History of Present Illness HPI narrative: Patient comes to emergency room from short-term rehab. Patient states that she was diagnosed with COVID-19 for 5 days. Patient states that her main complaint today is that she has bilateral leg weakness. Patient denies chest pain, no shortness of breath. Patient known to have a fever of 101.2 prior to arrival. Patient complaining of coughing, no shortness of breath or chest pain. Of note, patient is deaf mute, automotive parts interpreter services via camera were used. Related Data Home Medications Medication Instructions Recorded Confirmed enalapril maleate 20 mg tablet 40 mg PO DAILY tab 06/26/21 09/22/21 Previous Rx's Medication Instructions Recorded amlodipine 10 mg tablet 10 mg PO DAILY #90 tab 02/12/21 levothyroxine 88 mcg tablet 88 mcg PO DAILY #90 tab 02/12/21 celecoxib 200 mg capsule (Celebrex) 200 mg PO BID 30 Days #60 cap 03/03/21 morgan walker with seat, brakes #1 ea 03/21/21 and front wheels buspirone 5 mg tablet 5 mg PO BID #60 tab 05/15/21 alendronate 70 mg tablet 70 mg PO QWEEK 90 Days #13 tab 05/29/21 metoprolol tartrate 25 mg tablet 25 mg PO BID #60 tab 06/30/21 rosuvastatin 10 mg tablet (Crestor) 10 mg PO DAILY #90 tab 09/22/21 acetaminophen 500 mg capsule 500 mg PO QID PRN #20 cap 10/19/21 Allergies Allergy/AdvReac Type Severity Reaction Status Date / Time No Known Allergies Allergy Verified 09/22/21 15:04 [No Known Allergies*] Review of Systems Review of Systems: Constitutional : No Weight loss, No Fever, No Chills, No Night Sweats, complaining of fatigue and weakness ENT/Mouth : No Hearing loss, No Ear Pain, No Nasal Congestion, No Sinus Pain, No Hoarseness, No sore throat, No Rhinorrhea, No Swallowing Difficulty Eyes: No Eye Pain, No Swelling, No Redness, No Foreign Body, No Discharge, No Vision Changes Cardiovascular : No Chest Pain, No SOB, No Dyspnea on Exertion, No Orthopnea, No Edema, No Palpitations Respiratory : complaining of productive cough No Wheezing, No Smoke Exposure, No Dyspnea Gastrointestinal : No Nausea, No Vomiting, No Diarrhea, No Constipation, No abdominal Pain, No Hematochezia, No Melena Genitourinary : no irregular bleeding, No Dysuria, No Urinary Frequency, No Hematuria, No Urinary Incontinence, No Urgency, No Flank Pain, No Urinary Flow Changes, No Hesitancy Musculoskeletal : No joint pain, complaining of bilateral lower extremity weakness and discomfort, No Joint Swelling Skin : No Skin Lesions, No rash Neuro : No Weakness, No Numbness, No Paresthesias, No Loss of Consciousness, No Dizziness, No Headache Psych : No Anxiety/Panic, No Depression, No SI/HI/AH/VH, No Social Issues, Heme/Lymph: No Bruising, No Bleeding,No Lymphadenopathy Endocrine : No Polyuria, No Polydipsia, No Temperature Intolerance FOR[facility]LY [facility] Past Medical History Medical History Acquired hypothyroidism Dyslipidemia Essential hypertension Generalized anxiety disorder Hypertension Osteoporosis Right hip pain Surgical History History of hernia repair History of hip surgery History of hysterectomy Family History Family History Father Myocardial infarction CVD (cardiovascular disease) Mother Unknown family medical history Son No problems noted. Son No problems noted. Daughter No problems noted. Social History Social History Alcohol intake: never Patient Tobacco Use Status: Never used Tobacco service: No Current occupational status: retired Physical Exam Vital Signs: Vital Signs: Last Vital Signs Temp 99 F 10/19/21 00:06 Pulse 101 H 10/19/21 00:06 Resp 16 10/19/21 00:24 BP 149/59 H 10/19/21 00:06 Pulse Ox 97 10/19/21 00:06 BMI result Body Mass Index 23.6 Const: Other: Appearance: Alert. Oriented X3. No acute distress. Eyes: Pupils equal, round and reactive to light. ENT: Pharynx normal. Neck: Normal inspection. Neck supple. No lymph nodes noted. No crepitus CVS: Normal heart rate and rhythm. Pulses normal. Normal S1 and S2 Respiratory: No respiratory distress. Breath sounds normal. No Wheezing. No rales Abdomen: Soft and nontender. No rigidity. No distention. good BS x4 Skin: Skin warm and dry. Normal skin color. Normal skin turgor. Extremities: +1 lower extremity nonpitting edema bilaterally, No Lacerations. No Rash Neuro: Oriented X 3. No motor deficit. No sensory deficit. Moving all extermities. No slurred speech. Course Course Course Narrative: Patient known to be COVID positive. Patient is not hypoxic, s epsis is not suspected. Coagulation labs are pending. If positive, patient may need to be scant to rule out PE. At this time patient has no chest pain or shortness of breath, main concern is lower extremity weakness. Urinalysis pending as well. Sign out given to Dr. Khan Medical Decision Making Lab Data Result diagrams: 10/19/21 01:03 10/19/21 01:03 Labs: Lab Results 10/19/21 10/19/21 10/19/21 Range/Units 01:03 01:03 01:03 WBC 10.0 (4.8-10.8) X10*3/uL RBC 4.90 (4.20-5.50) X10*6/uL Hgb 14.6 (12.0-16.0) g/dl Hct 42.3 (37.0-47.0) % MCV 86.3 (80.0-98.0) fL MCH 29.8 (27.0-33.0) pg MCHC 34.5 (31.0-35.0) g/dl RDW 12.3 (11.0-16.0) % Plt Count 200 (160-400) X10*3/uL MPV 9.2 L (9.4-12.3) fL Immature Gran % (Auto) 0.4 (0.0-0.4) % Neut % (Auto) 78.5 H (45-73) % Lymph % (Auto) 12.4 L (20-40) % [place] % (Auto) 8.6 (2-11) % Eos % (Auto) 0.0 (0-4) % Baso % (Auto) 0.1 (0-2) % Lymph # (Auto) 1.2 (1.2-4.9) X10*3/uL [place] # (Auto) 0.9 (0.1-1.2) X10*3/uL Eos # (Auto) 0.0 (0.0-0.4) X10*3/uL Baso # (Auto) 0.0 (0.0-0.2) X10*3/uL Abs Immat Gran (auto) 0.04 H (0.00-0.03) X10*3/uL Absolute Neuts (auto) 7.9 (2.0-8.3) x10*3/uL Absolute Nucleated RBC 0.000 (0.0-0.012) X10*3/uL Nucleated RBC % (auto) 0.0 (0.0-0.2) /100WBC Sodium 138 (135-145) mmol/L Potassium 3.7 (3.3-5.1) mmol/L Chloride 106 (96-108) mmol/L Carbon Dioxide 21 L (22-29) mmol/L Anion Gap 15 (12-20) BUN 12 (9-16) mg/dL Creatinine 0.72 (0.5-1.4) mg/dL Estim Creat Clear Calc 56.5 Estimated GFR > 60 Random Glucose 155 H (60-115) mg/dL Lactic Acid 1.4 (0.5-2.0) mmol/L Calcium 9.2 (8.4-10.2) mg/dL Total Bilirubin 0.8 (0.0-1.0) mg/dL Direct Bilirubin 0.3 (0.0-0.5) mg/dL AST 24 D (5-31) U/L ALT 16 (0-31) U/L Alkaline Phosphatase 91 D (39-117) U/L Troponin I High Sens (<3.5-17.0) ng/L B-Natriuretic Peptide (<100) pg/mL Total Protein 6.9 (6.5-8.0) g/dL Albumin 3.9 (3.5-5.0) g/dL COVID-19 (BASHIR) (Negative) COVID-19 Clin Com 10/19/21 10/19/21 Range/Units 01:03 01:03 WBC (4.8-10.8) X10*3/uL RBC (4.20-5.50) X10*6/uL Hgb (12.0-16.0) g/dl Hct (37.0-47.0) % MCV (80.0-98.0) fL MCH (27.0-33.0) pg MCHC (31.0-35.0) g/dl RDW (11.0-16.0) % Plt Count (160-400) X10*3/uL MPV (9.4-12.3) fL Immature Gran % (Auto) (0.0-0.4) % Neut % (Auto) (45-73) % Lymph % (Auto) (20-40) % [place] % (Auto) (2-11) % Eos % (Auto) (0-4) % Baso % (Auto) (0-2) % Lymph # (Auto) (1.2-4.9) X10*3/uL [place] # (Auto) (0.1-1.2) X10*3/uL Eos # (Auto) (0.0-0.4) X10*3/uL Baso # (Auto) (0.0-0.2) X10*3/uL Abs Immat Gran (auto) (0.00-0.03) X10*3/uL Absolute Neuts (auto) (2.0-8.3) x10*3/uL Absolute Nucleated RBC (0.0-0.012) X10*3/uL Nucleated RBC % (auto) (0.0-0.2) /100WBC Sodium (135-145) mmol/L Potassium (3.3-5.1) mmol/L Chloride (96-108) mmol/L Carbon Dioxide (22-29) mmol/L Anion Gap (12-20) BUN (9-16) mg/dL Creatinine (0.5-1.4) mg/dL Estim Creat Clear Calc Estimated GFR Random Glucose (60-115) mg/dL Lactic Acid (0.5-2.0) mmol/L Calcium (8.4-10.2) mg/dL Total Bilirubin (0.0-1.0) mg/dL Direct Bilirubin (0.0-0.5) mg/dL AST (5-31) U/L ALT (0-31) U/L Alkaline Phosphatase (39-117) U/L Troponin I High Sens 9.8 (<3.5-17.0) ng/L B-Natriuretic Peptide 31 (<100) pg/mL Total Protein (6.5-8.0) g/dL Albumin (3.5-5.0) g/dL COVID-19 (BASHIR) Positive A (Negative) COVID-19 Clin Com See Note Discharge Plan Discharge Clinical Impression: COVID-19, Weakness Patient Disposition: Still a Patient Instructions: Weakness (ED), COVID-19 (Coronavirus Disease 2019) (ED) Additional Instructions: Please follow-up with your primary care physician tomorrow. If you have any worsening or new symptoms, please return to the emergency room or call 911 Prescriptions: New acetaminophen 500 mg capsule 500 mg PO QID PRN (Reason: fever or pain) Qty: 20 RF: 0 No Action levothyroxine 88 mcg tablet 88 mcg PO DAILY Qty: 90 RF: 3 amlodipine 10 mg tablet 10 mg PO DAILY Qty: 90 RF: 3 (DME) morgan walker with seat, brakes and front wheels See Rx Instructions .Route .MEDSUPPLY Qty: 1 RF: 0 buspirone 5 mg tablet 5 mg PO BID Qty: 60 RF: 1 alendronate 70 mg tablet 70 mg PO QWEEK 90 Days Qty: 13 RF: 1 metoprolol tartrate 25 mg tablet 25 mg PO BID Qty: 60 RF: 1 rosuvastatin [Crestor] 10 mg tablet 10 mg PO DAILY Qty: 90 RF: 4 celecoxib [Celebrex] 200 mg capsule 200 mg PO BID 30 Days Qty: 60 RF: 0 enalapril maleate 20 mg tablet 40 mg PO DAILY RF: 0
[2021-10-19] MEDS: 0.9 % Sodium Chloride 1,000 ML 999 ML IVCONT (01:08)
[2021-10-19 01:10] LABS: MANUAL DIFF FLAG NO
[2021-10-19 01:11] LABS: Basophils Percent Auto 0.1 % (0-2); Hematocrit 42.3 % (37.0-47.0); Hemoglobin 14.6 g/dl (12.0-16.0); Imm Gran Abs Auto 0.04 X10*3/uL (0.00-0.03); Imm Gran Pct Auto 0.4 % (0.0-0.4); Lymphocytes Absolute Auto 1.2 X10*3/uL (1.2-4.9); Lymphocytes Percent Auto 12.4 % (20-40); Mean Corpuscular HGB Conc 34.5 g/dl (31.0-35.0); Mean Corpuscular Hemoglobin 29.8 pg (27.0-33.0); Mean Corpuscular Volume 86.3 fL (80.0-98.0); Mean Platelet Volume 9.2 fL (9.4-12.3); Monocytes Absolute Auto 0.9 X10*3/uL (0.1-1.2); Monocytes Percent Auto 8.6 % (2-11); Neutrophils Absolute Auto 7.9 x10*3/uL (2.0-8.3); Neutrophils Percent Auto 78.5 % (45-73); Platelet Count 200 X10*3/uL (160-400); Red Cell Distribution Width 12.3 % (11.0-16.0)
[2021-10-19 01:22] LABS: Lactic Acid 1.4 mmol/L (0.5-2.0)
[2021-10-19 01:29] LABS: Alanine Aminotransferase 16 U/L (0-31); Albumin Level 3.9 g/dL (3.5-5.0); Alkaline Phosphatase 91 U/L (39-117); Anion Gap 15 (12-20); Aspartate Amino Transferase 24 U/L (5-31); Bilirubin Direct 0.3 mg/dL (0.0-0.5); Bilirubin Total 0.8 mg/dL (0.0-1.0); Blood Urea Nitrogen 12 mg/dL (9-16); Calcium 9.2 mg/dL (8.4-10.2); Carbon Dioxide 21 mmol/L (22-29); Chloride 106 mmol/L (96-108); Creatinine Clr Calc Pharmacy 56.5; Estimated Glomerular Filt Rate > 60; Glucose Random 155 mg/dL (60-115); Potassium 3.7 mmol/L (3.3-5.1); Sodium 138 mmol/L (135-145); Total Protein 6.9 g/dL (6.5-8.0)
[2021-10-19 01:31] LABS: B Type Natriuretic Peptide 31 pg/mL (<100); Troponin-I High Sensitivity 9.8 ng/L (<3.5-17.0)
[2021-10-19 01:32] LABS: COVID-19 Test Positive (Negative)
[2021-10-19 02:16] LABS: INTERNATIONAL NORM RATIO 1.1 (0.9-1.1); Prothrombin Time 12.9 SEC (9.9-13.0)
[2021-10-19 02:40] LABS: D Dimer High Sensitivity < 150 NG/ML
[2021-10-19 05:17] VITALS: BP 147/66; PULSE 93; RESP 16; TEMP 37.1; O2SAT 97
== END 2021-10-19 07:36 | disposition home or self-care (01) ==
PROVIDERS: Emergency Medicine; Emergency Provider Emergency Medicine Emergency Medical Services
DX: U07.1 COVID-19 (principal); R53.1 Weakness; R50.9 Fever, unspecified; I10 Essential (primary) hypertension; E78.5 Hyperlipidemia, unspecified; Z79.02 Long term (current) use of antithrombotics/antiplatelets; Z79.899 Other long term (current) drug therapy
CPT/HCPCS: 36415; 71045; 80048; 80076; 83605; 83880; 84484; 85025; 85379; 85610; 87040; 87147; 87205; 87635; 93005; 96360; 99284

== ENCOUNTER 2022-03-26 19:01 | Emergency (ER) | payer MEDICARE, SELFPAY ==
[2022-03-26] VITALS (7 sets, daily range): BP systolic 142–179; BP diastolic 69–86; PULSE 109–119; RESP 19–21; TEMP 36.9–37.5; O2SAT 96–99; BMI 23.1
--- NOTE | 2022-03-26 | ECG_ITS ---
Test Reason : tachycardia Blood Pressure : / mmHG Vent. Rate : 111 BPM Atrial Rate : 111 BPM P-R Int : 154 ms QRS Dur : 060 ms QT Int : 296 ms P-R-T Axes : 058 -21 056 degrees QTc Int : 402 ms Sinus tachycardia Inferior infarct (cited on or before 19-OCT-2021) Cannot rule out Anterior infarct (cited on or before 19-OCT-2021) Abnormal ECG When compared with ECG of 19-OCT-2021 01:13, Premature supraventricular complexes are no longer Present Referred By: Dorothy Milton Electronically Signed By:Anthony Mendez
--- NOTE | ~2022-03-26 | CT_ITS ---
EXAMINATION: CT BRAIN AND CT CERVICAL SPINE WITHOUT CONTRAST. CLINICAL INFORMATION: Fall, head strike. Neck pain. COMPARISON: None TECHNIQUE: 5 mm thin axial and reformatted 2 mm thin sagittal and coronal images of brain were obtained. Subsequently axial 3 mm thin and reformatted 2 mm thin sagittal and coronal images of cervical spine were obtained. DLP 26 FINDINGS: Brain: There is no acute intra-axial, extra-axial bleed, masses or midline shift. There is no acute infarction evolution. The lateral ventricles are symmetrical in size and configuration with mild enlargement. There is diffuse periventricular hypodensity in both cerebral hemispheres without mass effect. There is a focal hypodensity in the right precentral frontal lobe parafalcine region question old infarct. Bone windows reveal no calvarial abnormality. There is mild mucoperiosteal thickening left sphenoid sinus. Rest of the sinuses are clear. Cervical spine: There is normal cervical lordosis. The vertebral heights, alignment and disc heights are normal. There is mild superior enthesophytes along the C1-C2 vertebra. No visible acute fracture, dislocation or subluxation seen. The prevertebral and paravertebral soft tissues are normal. There is mild facet joint arthropathy. The prevertebral and paravertebral soft tissues are normal. The lung apices are clear the thyroid lobes, submandibular and parotid glands are normal. CT/CT head/brain wo con IMPRESSION: No acute intracranial process seen. Mild cerebral volume loss with chronic small vessel ischemic changes. There is a right precentral para falcine hypodensity likely old ischemia. There is no acute fracture, dislocation or subluxation in cervical spine.
--- NOTE | ~2022-03-26 | XR_ITS ---
EXAMINATION: XR SHOULDER, LEFT XR ELBOW, LEFT XR WRIST, LEFT CLINICAL INFORMATION: Pain. Fall. COMPARISON: 08/10/2018 TECHNIQUE: 2 views of the left shoulder. 3 views of the left elbow. 3 views of the left wrist. FINDINGS: Left shoulder: Chronic deformity of the proximal left humerus likely from previous fracture. No dislocation seen. The glenohumeral joint is aligned. The acromial clavicular joint is intact with moderate hypertrophic degenerative change. The visualized lung is clear. The visualized ribs are intact. Left elbow: There appears to be a fracture of the olecranon with cortical step off noted. No significant displacement. There is no definite elbow joint effusion seen. Alignment is otherwise maintained at the radiocapitellar joint. Left wrist: Osteopenia. No fracture or dislocation. The carpal rows are well aligned. Severe degenerative change of the first carpal metacarpal joint with narrowing and sclerosis. Chondrocalcinosis at the TFCC. XR/XR hand wrist LT IMPRESSION: Essentially nondisplaced olecranon fracture noted. Chronic deformity of the proximal left humerus with no acute fracture at the shoulder. Degenerative change. No acute fracture at the left wrist. Degenerative changes.
--- NOTE | ~2022-03-26 | CT_ITS ---
EXAMINATION: CT ANGIOGRAM OF THE CHEST WITH AND WITHOUT CONTRAST (CT PULMONARY ANGIOGRAM FOR PE) CLINICAL INFORMATION: Reason for Exam fall, elevated dimer COMPARISON: Noncontrast CT 03/26/2022 TECHNIQUE: Prior to contrast administration, noncontrast localization images were obtained. Subsequently, multidetector volumetric imaging was performed from the thoracic inlet to below the diaphragms following the administration of 80 mL Omnipaque 350 intravenous contrast. No contrast reaction reported Sagittal, coronal, and MIP oblique sagittal reformatted images were obtained on the CT workstation, uploaded to PACS, and reviewed. This CT examination was performed using dose optimization techniques as appropriate, variously including the following: *Automated exposure control *Adjustment of mA and/or kV according to patient size (this includes techniques or standardized protocols for targeted exams where dose is matched to indication/reason for exam; i.e. extremities or head) *Use of iterative reconstruction technique Total exam dose-length product 375 mGy-cm FINDINGS: QUALITY OF STUDY/CONTRAST BOLUS: Satisfactory. PULMONARY ARTERIES: No central or proximal segmental pulmonary emboli. Assessment of the more distal vasculature is significantly limited due to respiratory motion artifact. THORACIC AORTA: No aneurysm or dissection. Scattered atherosclerotic calcifications. LUNG: Limited detailed parenchymal evaluation due to respiratory motion artifact. No regions of consolidation bilaterally. Minimal bibasilar atelectasis. PLEURA: No pleural effusion or pneumothorax. MEDIASTINUM: The visualized thyroid gland is unremarkable. There are subcentimeter mediastinal lymph nodes within the range of normal variation. Cardiac size is within normal limits; no pericardial effusion. Coronary artery calcifications are present. CHEST WALL/AXILLA: No axillary or internal mammary lymphadenopathy. OSSEOUS STRUCTURES: Compression deformity of T7 appears similar to 01/18/2021. There is subtle transverse lucency through the T12 vertebral body, new from 01/18/2021 and concerning for fracture in the setting of recent trauma. Degenerative changes are noted in the spine. UPPER ABDOMEN: Unremarkable. No reflux of contrast into the hepatic veins to suggest elevated right heart pressures. CT/CT angio chest PE protocol IMPRESSION: 1. No central pulmonary embolus identified. Assessment of the distal vasculature is incomplete due to respiratory motion artifact. 2. Subtle transverse lucency through the T12 vertebral body, concerning for acute fracture in the proper clinical setting. VTE: negative
--- NOTE | ~2022-03-26 | XR_ITS ---
EXAMINATION: XR SHOULDER, LEFT XR ELBOW, LEFT XR WRIST, LEFT CLINICAL INFORMATION: Pain. Fall. COMPARISON: 08/10/2018 TECHNIQUE: 2 views of the left shoulder. 3 views of the left elbow. 3 views of the left wrist. FINDINGS: Left shoulder: Chronic deformity of the proximal left humerus likely from previous fracture. No dislocation seen. The glenohumeral joint is aligned. The acromial clavicular joint is intact with moderate hypertrophic degenerative change. The visualized lung is clear. The visualized ribs are intact. Left elbow: There appears to be a fracture of the olecranon with cortical step off noted. No significant displacement. There is no definite elbow joint effusion seen. Alignment is otherwise maintained at the radiocapitellar joint. Left wrist: Osteopenia. No fracture or dislocation. The carpal rows are well aligned. Severe degenerative change of the first carpal metacarpal joint with narrowing and sclerosis. Chondrocalcinosis at the TFCC. XR/XR elbow LT min 3V IMPRESSION: Essentially nondisplaced olecranon fracture noted. Chronic deformity of the proximal left humerus with no acute fracture at the shoulder. Degenerative change. No acute fracture at the left wrist. Degenerative changes.
--- NOTE | ~2022-03-26 | CT_ITS ---
EXAMINATION: CT CHEST, ABDOMEN AND PELVIS WITHOUT CONTRAST. CLINICAL INFORMATION: Status post fall with pelvic pain and chest wall pain COMPARISON: None TECHNIQUE: 5 mm thin axial and reformatted 3 mm thin sagittal and coronal images of chest, abdomen and pelvis were obtained without contrast. DLP [id number]. FINDINGS: Chest: Both lungs are fairly well-expanded with bibasilar atelectasis. No pulmonary contusion, nodule, mass or consolidation seen. The thyroid lobes are symmetrical and normal. The central trachea and the bronchi widely patent. No mediastinal mass, hematoma seen. No abnormal lymph nodes. The ascending aorta is nondilated but prominent measuring 3.3 x 3.3 cm. There are coronary artery calcifications. The heart size is borderline enlarged. A small hiatal hernia seen. There is no pleural effusion, thickening or calcification. There is no evidence of pneumothorax. The axilla and the chest wall appears unremarkable. Bone windows reveals compression deformity T7 vertebra of indeterminate age. There is moderate ventral bridging osteophytes lower dorsal spine. No visible rib fracture identified. Abdomen and pelvis: The liver is normal size, shape and contour. No focal lesion or intrahepatic ductal dilatation seen. Visualized spleen, pancreas and bilateral adrenal glands unremarkable. The gallbladder is not visualized. Both kidneys are normal size, shape and position. Suspect bilateral peripelvic renal cysts. No radiopaque calculi. No perinephric hematoma or hydronephrosis. There is atherosclerotic calcification of abdominal aorta without aneurysmal dilatation. No abnormal size retroperitoneal or pelvic lymph nodes seen. There is scattered stool, diverticula and gas seen in colon without diverticulitis. Abdominal wall appears unremarkable. Imaging to the pelvis reveals unremarkable urinary bladder uterus is not visualized. No free fluid seen. Bone windows reveal no compression deformity of lumbar spine. There is vacuum disc phenomena and loss of disc height L5-S1 disc level. There is a right intramedullary femoral brandon and hip nail for an old healed fracture. CT/CT abdomen pelvis wo con IMPRESSION: No acute process seen in the chest. There is a compression deformity T7 vertebra of indeterminate age. There is no sternal or chondrocostal cartilage fracture. There is no acute process seen in the abdomen. There is bilateral peripelvic renal cyst. Colonic diverticulosis without diverticulitis. There is no free free air, free fluid or hematoma in the abdomen. Visible acute fracture or dislocation seen.
--- NOTE | ~2022-03-26 | US_ITS ---
EXAMINATION: US VENOUS ULTRASOUND WITH DOPPLER LOWER EXTREMITY, BILATERAL CLINICAL INFORMATION: Elevated d-dimer, rule out DVT COMPARISON: 01/18/2021 TECHNIQUE: Ultrasound of the deep veins is performed from the hip to the calf with compression sonography and color and pulse Doppler assessment. Spectral analysis with color-flow imaging is performed. FINDINGS: RIGHT: There is normal venous compression and respiratory variation and augmented flow. The visualized common femoral vein, superficial femoral vein, profunda femoral vein, popliteal vein, and the trifurcation region shows no evidence of deep venous thrombosis. Limited visualization of the right calf veins due to swelling and patient discomfort. There is no significant popliteal fossa cyst. LEFT: There is normal venous compression and respiratory variation and augmented flow. The visualized common femoral vein, superficial femoral vein, profunda femoral vein, popliteal vein, and the trifurcation region shows no evidence of deep venous thrombosis. Limited visualization of the left calf veins due to swelling and patient discomfort. There is no significant popliteal fossa cyst. If the patient's symptoms persist, followup ultrasound in 5 days 7 days might be of value to exclude proximal propagation from a non-visualized calf vein. US/US venous duplex LE BI IMPRESSION: No DVT demonstrated in the bilateral lower extremities. Limited visualization of the calf veins.
--- NOTE | ~2022-03-26 | XR_ITS ---
EXAMINATION: XR SHOULDER, LEFT XR ELBOW, LEFT XR WRIST, LEFT CLINICAL INFORMATION: Pain. Fall. COMPARISON: 08/10/2018 TECHNIQUE: 2 views of the left shoulder. 3 views of the left elbow. 3 views of the left wrist. FINDINGS: Left shoulder: Chronic deformity of the proximal left humerus likely from previous fracture. No dislocation seen. The glenohumeral joint is aligned. The acromial clavicular joint is intact with moderate hypertrophic degenerative change. The visualized lung is clear. The visualized ribs are intact. Left elbow: There appears to be a fracture of the olecranon with cortical step off noted. No significant displacement. There is no definite elbow joint effusion seen. Alignment is otherwise maintained at the radiocapitellar joint. Left wrist: Osteopenia. No fracture or dislocation. The carpal rows are well aligned. Severe degenerative change of the first carpal metacarpal joint with narrowing and sclerosis. Chondrocalcinosis at the TFCC. XR/XR shoulder LT min 2V IMPRESSION: Essentially nondisplaced olecranon fracture noted. Chronic deformity of the proximal left humerus with no acute fracture at the shoulder. Degenerative change. No acute fracture at the left wrist. Degenerative changes.
--- NOTE | ~2022-03-26 | CT_ITS ---
EXAMINATION: CT BRAIN AND CT CERVICAL SPINE WITHOUT CONTRAST. CLINICAL INFORMATION: Fall, head strike. Neck pain. COMPARISON: None TECHNIQUE: 5 mm thin axial and reformatted 2 mm thin sagittal and coronal images of brain were obtained. Subsequently axial 3 mm thin and reformatted 2 mm thin sagittal and coronal images of cervical spine were obtained. DLP 26 FINDINGS: Brain: There is no acute intra-axial, extra-axial bleed, masses or midline shift. There is no acute infarction evolution. The lateral ventricles are symmetrical in size and configuration with mild enlargement. There is diffuse periventricular hypodensity in both cerebral hemispheres without mass effect. There is a focal hypodensity in the right precentral frontal lobe parafalcine region question old infarct. Bone windows reveal no calvarial abnormality. There is mild mucoperiosteal thickening left sphenoid sinus. Rest of the sinuses are clear. Cervical spine: There is normal cervical lordosis. The vertebral heights, alignment and disc heights are normal. There is mild superior enthesophytes along the C1-C2 vertebra. No visible acute fracture, dislocation or subluxation seen. The prevertebral and paravertebral soft tissues are normal. There is mild facet joint arthropathy. The prevertebral and paravertebral soft tissues are normal. The lung apices are clear the thyroid lobes, submandibular and parotid glands are normal. CT/CT cervical spine wo con IMPRESSION: No acute intracranial process seen. Mild cerebral volume loss with chronic small vessel ischemic changes. There is a right precentral para falcine hypodensity likely old ischemia. There is no acute fracture, dislocation or subluxation in cervical spine.
--- NOTE | 2022-03-26 19:19 | ED_ITS ---
HPI - Fall General Chief Complaint: Fall Stated Complaint: fall Time Seen by Provider: 03/26/22 19:18 Source: patient and family Mode of arrival: EMS Limitations: language barrier (Patient communicates with [place] sign language, paraprofessional interpreter used) and other (Poor historian ) History of Present Illness HPI Narrative: This is an 87-year-old female past medical history significant for hypothyroidism, hypertension, anxiety presenting to the emergency department status post fall prior to arrival with complaints of left elbow pain. Patient tells me she does not know why she fell and she does not remember the fall, she tells me she does not think she lost consciousness. She tells me that she ambulates with a walker however. Son says she usually ambulates with a shuffling gait. According to patient's son who is at the bedside in is also interpreting along with an spanish medical interpreter they tell me that patient was found in the prone position, they think that she was on the ground for approxim ately 30 minutes. Patient appears diaphoretic and flushed upon history taking. She tells me that her right hip is also hurting and she has had hip surgery on that hip. She also reports bilateral lower extremity edema has been progressively worsening. Patient poor historian. Every time I asked patient a question for review of systems she says I just do not now. Unable to obtain an accurate review of systems. complaint: fall Onset (ago): day(s) (1) Fall from: standing Fall witnessed: no Place fall occurred: [facility] Loss of consciousness: unsure Prolonged down time: unclear Symptoms prior to fall: other (Unclear) Context: other (Unsure) Related Data Home Medications Medication Instructions Recorded Confirmed enalapril maleate 20 mg tablet 40 mg PO DAILY tab 06/26/21 09/22/21 amlodipine 5 mg tablet 1 tab PO DAILY 03/27/22 03/27/22 Previous Rx's Medication Instructions Recorded levothyroxine 88 mcg tablet 88 mcg PO DAILY #90 tab 02/12/21 morgan walker with seat, brakes #1 ea 03/21/21 and front wheels alendronate 70 mg tablet 70 mg PO QWEEK 90 Days #13 tab 05/29/21 rosuvastatin 10 mg tablet (Crestor) 10 mg PO DAILY #90 tab 09/22/21 acetaminophen 500 mg capsule 500 mg PO QID PRN #20 cap 10/19/21 Allergies Allergy/AdvReac Type Severity Reaction Status Date / Time No Known Allergies Allergy Verified 09/22/21 15:04 [No Known Allergies*] Review of Systems Review of Systems: Yes Unobtainable due to mental status PMFSH Past Medical History Attestation statement: The following information was validated with the patient. Source: old records reviewed and nursing notes reviewed Medical History Acquired hypothyroidism Dyslipidemia Essential hypertension Generalized anxiety disorder Hypertension Osteoporosis Right hip pain Surgical History History of hernia repair History of hip surgery History of hysterectomy Family History Family History Father Myocardial infarction CVD (cardiovascular disease) Mother Unknown family medical history Son No problems noted. Son No problems noted. Daughter No problems noted. Social History Social History Alcohol intake: never Patient Tobacco Use Status: Never used Tobacco Advance Directives: No Advance Directives Information Provided: Yes service: No Current occupational status: retired Physical Exam Vital Signs: Vital Signs: Last Vital Signs Temp 99.5 F 03/26/22 20:33 Pulse 93 03/27/22 04:15 Resp 24 H 03/27/22 04:15 BP 154/77 H 03/27/22 04:15 Pulse Ox 97 03/27/22 04:15 BMI result Body Mass Index 23.1 Appearance: Alert.? Oriented X3.? Appears uncomfortable. Head: Normocephalic, +trauma to face, small scrape over left eyebrow, no step- offs or deformities. Tenderness to palpation of left orbital region. Eyes: Pupils equal, round and reactive to light.?+ periorbital ecchymosis to left eye +photophobia ENT: Pharynx normal.? Neck: Normal inspection.? Neck supple.? CVS:+Rapid rate around 120-130 normal rythem. Pulses normal.? Respiratory: No respiratory distress.? Breath sounds normal.?No signs of flail chest Abdomen: Soft and nontender.? Skin: Skin warm and dry.? Normal skin color.? Normal skin turgor.?+ Diaphoretic with flushed face. Extremities: 3 + lower extremity edema b/l.? No calf ttp. Global weakness noted. + ecchymosis noted to right upper bicep region + pain with range of motion to left elbow particularly w/ supination and pronation w/ hematoma and swelling to left olecranon , 2+ radial pulses equal bilateral, sensory intact, capillary refill less than 2 seconds on all upper extremity digits. No Wrist d rop + pain with palpation of right SI joint, bilateral extremities without shortening or rotation. Back: Pain with ROM. Pain with sitting forward and rolling, tender throughout back, hard to access for midline tenderness Neuro: Oriented X 3.?No sensory deficit. No saddle parenthesia. Patient is not ed to have a decreased hand phlebotomist supervisor/instructor to the left, decreased strength to the right lower extremity. ( limited exam due to cooperation, however suspected neuro deficits) Unable to ambulate. Course Course Course Narrative: 2229 Patient noted to have a slight leukocytosis, no acute electrolyte abnormalities requiring intervention, creatinine kinase within normal limits unlikely rhabdo. BNP within normal limits unlikely CHF, troponin negative unlikely ACS and nonischemic EKG. D-dimer was elevated therefore a CTA was ordered to r/o pe . Will wait on starting patient on antibiotics as she is afebrile, will look for source of infection, low suspision for infection. Patient urinated in bed therefore we were unable to obtain a urine sample. A pure wick has been placed to try to obtain urine. Unclear if patient has hx of incontinence tried contacting son (Eugene) with no answer. Patient noted to have a fracture of the olecranon, she was placed in a long posterior splint with a sling for comfort. After splint application neurovascularly intact able to wiggle all fingers sensory intact. Normal capillary refill to all 10 digits to left hand capillary refill less than 2 seconds. Attempted to call patient's son (Eugene) to inform him of results, no answer Reevaluation(s) Reevaluation #1: There was a delay in obtaining patient's CTA as patient was a tough stick and it was very hard to get an IV on this patient. Multiple nursing staff members tried, I was able to get an IV in her right wrist. Patient complaining of pain and was given iv morphine with zofran Time: 23:51 Reevaluation #2: CTA with no central pulmonary emboli, assessment of the distal vasculature was incomplete due to the respiratory motion of artifact. Subtle transverse lucency through T12 concerning for acute fracture which is likely secondary to patient's fall, patient is complaining of back pain with movment. We are having difficulties with this patient ASL finance effectiveness manager tells us that she is not understanding the patient's sign, and she advises to get inpatient paraprofessional interpreter which has been very difficult to obtain as we do not have one here in the department. Attempted to communicate via writing, but patient writes to us where is her sweater and doesnt answer our question. Patient's urine is noted to be concerning for infection, at this time blood cultures and lactic acid as well as fluids and antibiotics will be ordered as infection is now suspected, delay in obtaining urine secondary to patient urinating on the bed, not allowing us to do of Freeman catheter, finally urine was obtained with a Pure wick. Again tried to call patient's son (Eugene) for assistance, no answer. Patient with back T7 compression and acute of T12 likley from fall, and L olecr onon fx due to truama, limited neuro exam due to cooperation however I do suspect neurological deficits. Discussed this case with my attending who recommends touching base w/ trauma for guidance as there are two new fx to spine and olecronon fx as well as neuro findings and possibly new onset incontinence. Patient will likley require neurosurgery consult/ trauma surgery evaluation which we do not have here. Time: 02:59 Reevaluation #3: Patient now complaining of headache and photophobia. Ajit [phone] son is aware of situation and is ok with transfer to [facility] he tells me. Spoke to son Eugene who agrees with transfer as well. Reached out to [facility] trauma who will be accepting transfer patient will be going ED to ED. Patient requring transfer due to new neuro deficits, trauma to spine requiring higher level of care. Time: 04:00 MDM - Fall MDM Narrative Medical decision making narrative: 1927 87-year-old female poor historian presents status post fall, unclear history. Now reporting left elbow pain, weakness. Unable to tell me if she had any preceding symptoms. Unable to obtain a clear review of systems. spanish medical interpreter used. Physical examination significant for pain with range of motion to left elbow w/ hematoma and pain to palpation, no distracting injury. 2+ radial pulses equal bilateral capillary refill intact bilaterally the upper extremity digits. Sensory intact. No wrist drop bilaterally. Lungs clear. Rapid regular rhythm with a rate around 120 beats per minute likely sinus tachycardia. Discomfort with palpation of anterior chest wall. No overlying skin changes. No step-offs or deformities. No flail chest. Abdomen soft nontender nondistended. Unable to obtain a full neuro exam as patient is unwilling to follow commands could she tells me that she does not think there is anything wrong with her. However marjorie ent is noted to have decreased phlebotomist supervisor/instructor strength to the left and weakness to the right lower extremity upon my examination. Diffusley tender back. No saddle paresthesias. At this time will rule out ACS, ICH, pulmonary embolism. Also rule out fractures/dislocations to left elbow, shoulder and wrist. I do not suspect that this is dissection. Will also rule out UTI. Orthostatic hypotension. Tachycardia and tachypnea unlikley from infection. Plan at this time is labs, imaging, EKG, continuous cardiac monitoring. Medical Records Attestation: I reviewed the patient's medical records. Lab Data Attestation: I reviewed the patient's lab results. Result diagrams: 03/26/22 20:51 03/26/22 20:51 Labs: Lab Results 03/26/22 03/26/22 03/26/22 Range/Units 20:51 20:51 20:51 WBC 15.5 H (4.8-10.8) X10*3/uL RBC 4.96 (4.20-5.50) X10*6/uL Hgb 14.8 (12.0-16.0) g/dl Hct 43.5 (37.0-47.0) % MCV 87.7 (80.0-98.0) fL MCH 29.8 (27.0-33.0) pg MCHC 34.0 (31.0-35.0) g/dl RDW 12.8 (11.0-16.0) % Plt Count TNP MPV TNP Immature Gran % (Auto) 0.9 H (0.0-0.4) % Neut % (Auto) 88.2 H (45-73) % Lymph % (Auto) 6.9 L (20-40) % [place] % (Auto) 3.7 (2-11) % Eos % (Auto) 0.1 (0-4) % Baso % (Auto) 0.2 (0-2) % Lymph # (Auto) 1.1 L (1.2-4.9) X10*3/uL [place] # (Auto) 0.6 (0.1-1.2) X10*3/uL Eos # (Auto) 0.0 (0.0-0.4) X10*3/uL Baso # (Auto) 0.0 (0.0-0.2) X10*3/uL Abs Immat Gran (auto) 0.14 H (0.00-0.03) X10*3/uL Absolute Neuts (auto) 13.7 H (2.0-8.3) x10*3/uL Absolute Nucleated RBC 0.000 (0.0-0.012) X10*3/uL Nucleated RBC % (auto) 0.0 (0.0-0.2) /100WBC Smear Tech's Comments VERIFIED ESR D-Dimer High Sensitivty 5228 NG/ML Sodium 141 (135-145) mmol/L Potassium 4.5 D (3.3-5.1) mmol/L Chloride 108 (96-108) mmol/L Carbon Dioxide 21 L (22-29) mmol/L Anion Gap 17 (12-20) BUN 18 H (9-16) mg/dL Creatinine 0.78 (0.5-1.4) mg/dL Estim Creat Clear Calc 45.5 Estimated GFR > 60 Random Glucose 143 H (60-115) mg/dL Lactic Acid (0.5-2.0) mmol/L Calcium 9.5 (8.4-10.2) mg/dL Magnesium 2.0 (1.6-2.6) mg/dL Total Bilirubin 0.7 (0.0-1.0) mg/dL AST 26 (5-31) U/L ALT 17 (0-31) U/L Alkaline Phosphatase 91 (39-117) U/L Total Creatine Kinase (26-140) U/L Troponin I High Sens (<3.5-17.0) ng/L C-Reactive Protein 0.04 (< or = 0.50) mg/dL B-Natriuretic Peptide (<100) pg/mL Total Protein 7.7 (6.5-8.0) g/dL Albumin 4.2 (3.5-5.0) g/dL Urine Color Urine Appearance Urine pH (5.0-8.0) Ur Specific [place] (1.005-1.025) Urine Protein (NEG-TRACE) MG/DL Urine Glucose (UA) (NEG) MG/DL Urine Ketones (NEG) MG/DL Urine Blood (NEG) Urine Nitrite (NEG) Ur Leukocyte Esterase (NEG) Urine RBC (0) /HPF Urine WBC (0-4) /HPF Urine WBC Clumps Ur Squamous Epith Cells /LPF Urine Bacteria /LPF COVID-19 (BASHIR) (Negative) COVID-19 Clin Com 03/26/22 03/26/22 03/26/22 Range/Units 20:51 20:51 20:51 WBC (4.8-10.8) X10*3/uL RBC (4.20-5.50) X10*6/uL Hgb (12.0-16.0) g/dl Hct (37.0-47.0) % MCV (80.0-98.0) fL MCH (27.0-33.0) pg MCHC (31.0-35.0) g/dl RDW (11.0-16.0) % Plt Count MPV Immature Gran % (Auto) (0.0-0.4) % Neut % (Auto) (45-73) % Lymph % (Auto) (20-40) % [place] % (Auto) (2-11) % Eos % (Auto) (0-4) % Baso % (Auto) (0-2) % Lymph # (Auto) (1.2-4.9) X10*3/uL [place] # (Auto) (0.1-1.2) X10*3/uL Eos # (Auto) (0.0-0.4) X10*3/uL Baso # (Auto) (0.0-0.2) X10*3/uL Abs Immat Gran (auto) (0.00-0.03) X10*3/uL Absolute Neuts (auto) (2.0-8.3) x10*3/uL Absolute Nucleated RBC (0.0-0.012) X10*3/uL Nucleated RBC % (auto) (0.0-0.2) /100WBC Smear Tech's Comments ESR D-Dimer High Sensitivty NG/ML Sodium (135-145) mmol/L Potassium (3.3-5.1) mmol/L Chloride (96-108) mmol/L Carbon Dioxide (22-29) mmol/L Anion Gap (12-20) BUN (9-16) mg/dL Creatinine (0.5-1.4) mg/dL Estim Creat Clear Calc Estimated GFR Random Glucose (60-115) mg/dL Lactic Acid (0.5-2.0) mmol/L Calcium (8.4-10.2) mg/dL Magnesium (1.6-2.6) mg/dL Total Bilirubin (0.0-1.0) mg/dL AST (5-31) U/L ALT (0-31) U/L Alkaline Phosphatase (39-117) U/L Total Creatine Kinase 113 (26-140) U/L Troponin I High Sens 4.2 D (<3.5-17.0) ng/L C-Reactive Protein (< or = 0.50) mg/dL B-Natriuretic Peptide 46 (<100) pg/mL Total Protein (6.5-8.0) g/dL Albumin (3.5-5.0) g/dL Urine Color Urine Appearance Urine pH (5.0-8.0) Ur Specific [place] (1.005-1.025) Urine Protein (NEG-TRACE) MG/DL Urine Glucose (UA) (NEG) MG/DL Urine Ketones (NEG) MG/DL Urine Blood (NEG) Urine Nitrite (NEG) Ur Leukocyte Esterase (NEG) Urine RBC (0) /HPF Urine WBC (0-4) /HPF Urine WBC Clumps Ur Squamous Epith Cells /LPF Urine Bacteria /LPF COVID-19 (BASHIR) Negative (Negative) COVID-19 Clin Com See Note 03/26/22 03/27/22 03/27/22 Range/Units 20:51 01:57 03:32 WBC (4.8-10.8) X10*3/uL RBC (4.20-5.50) X10*6/uL Hgb (12.0-16.0) g/dl Hct (37.0-47.0) % MCV (80.0-98.0) fL MCH (27.0-33.0) pg MCHC (31.0-35.0) g/dl RDW (11.0-16.0) % Plt Count MPV Immature Gran % (Auto) (0.0-0.4) % Neut % (Auto) (45-73) % Lymph % (Auto) (20-40) % [place] % (Auto) (2-11) % Eos % (Auto) (0-4) % Baso % (Auto) (0-2) % Lymph # (Auto) (1.2-4.9) X10*3/uL [place] # (Auto) (0.1-1.2) X10*3/uL Eos # (Auto) (0.0-0.4) X10*3/uL Baso # (Auto) (0.0-0.2) X10*3/uL Abs Immat Gran (auto) (0.00-0.03) X10*3/uL Absolute Neuts (auto) (2.0-8.3) x10*3/uL Absolute Nucleated RBC (0.0-0.012) X10*3/uL Nucleated RBC % (auto) (0.0-0.2) /100WBC Smear Tech's Comments ESR Cancelled D-Dimer High Sensitivty NG/ML Sodium (135-145) mmol/L Potassium (3.3-5.1) mmol/L Chloride (96-108) mmol/L Carbon Dioxide (22-29) mmol/L Anion Gap (12-20) BUN (9-16) mg/dL Creatinine (0.5-1.4) mg/dL Estim Creat Clear Calc Estimated GFR Random Glucose (60-115) mg/dL Lactic Acid 2.9 H* (0.5-2.0) mmol/L Calcium (8.4-10.2) mg/dL Magnesium (1.6-2.6) mg/dL Total Bilirubin (0.0-1.0) mg/dL AST (5-31) U/L ALT (0-31) U/L Alkaline Phosphatase (39-117) U/L Total Creatine Kinase (26-140) U/L Troponin I High Sens (<3.5-17.0) ng/L C-Reactive Protein (< or = 0.50) mg/dL B-Natriuretic Peptide (<100) pg/mL Total Protein (6.5-8.0) g/dL Albumin (3.5-5.0) g/dL Urine Color YELLOW Urine Appearance HAZY Urine pH 6.5 (5.0-8.0) Ur Specific [place] 1.015 (1.005-1.025) Urine Protein NEG (NEG-TRACE) MG/DL Urine Glucose (UA) NEG (NEG) MG/DL Urine Ketones NEG (NEG) MG/DL Urine Blood TRACE (NEG) Urine Nitrite POS H (NEG) Ur Leukocyte Esterase 1+ H (NEG) Urine RBC 1-4 (0) /HPF Urine WBC 5-9 H (0-4) /HPF Urine WBC Clumps NOTED Ur Squamous Epith Cells TRACE /LPF Urine Bacteria 4+ /LPF COVID-19 (BASHIR) (Negative) COVID-19 Clin Com ECG Data Attestation: I personally reviewed and interpreted this ECG as follows: ECG interpretation date: 03/26/22 ECG interpretation time: 20:19 Prior ECG tracings: available for review Interpretation: Ventricular rate of 111, ID normal, QRS normal, QT/QTC normal. EKG shows sinus tachycardia no ST elevations or inversions concerning for ischemia. When compared to EKG from December 2020 no significant changes. Critical Care Time Critical Care Time Critical Care Time: Yes Total Critical Care Time: 120 Attestation: I attest to this time spent taking care of the patient, obtaining history, physical, reviewing labs, imaging, speaking to my attending, speaking to [facility]. Discharge Plan Discharge Clinical Impression: Closed olecranon fracture, Acute UTI, Fall, T12 vertebral fracture, Compression fracture of T7 vertebra, Acidosis, lactic Patient Disposition: Xfer Acute Care Hospital Transfer Details: Dr. Reno [facility] Emergency Department. Prescriptions: No Action levothyroxine 88 mcg tablet 88 mcg PO DAILY Qty: 90 3RF (DME) morgan walker with seat, brakes and front wheels See Rx Instructions .Route .MEDSUPPLY Qty: 1 0RF Rx Instructions: As directed alendronate 70 mg tablet 70 mg PO QWEEK 90 Days Qty: 13 1RF acetaminophen 500 mg capsule 500 mg PO QID PRN (Reason: fever or pain) Qty: 20 0RF amlodipine 5 mg tablet 1 tab PO DAILY 0RF rosuvastatin [Crestor] 10 mg tablet 10 mg PO DAILY Qty: 90 4RF enalapril maleate 20 mg tablet 40 mg PO DAILY 0RF
--- NOTE | 2022-03-26 20:15 | PC.NURSE ---
attraction worker used to communicate with pt after son who was translating stated that we should be using an aviation electronic warfare operator despite stating that he would be happy to help interpret. ASL interpretter unable to communicate with pt, states that she does not understand pt, cant relay anything that the pt is saying. pt guarding left elbow- contusion present. abrasion noted to left cheek. RLE increased swelling, decreased left hand poultry farmworker strength. pt denies neck or back pain.
[2022-03-26 21:01] LABS: Eosinophils Percent Auto 0.1 % (0-4); Hematocrit 43.5 % (37.0-47.0); Hemoglobin 14.8 g/dl (12.0-16.0); PLT CLUMP 1; SCAN SMEAR FLAG 1
[2022-03-26 21:03] LABS: Basophils Percent Auto 0.2 % (0-2); Imm Gran Abs Auto 0.14 X10*3/uL (0.00-0.03); Imm Gran Pct Auto 0.9 % (0.0-0.4); Lymphocytes Absolute Auto 1.1 X10*3/uL (1.2-4.9); Lymphocytes Percent Auto 6.9 % (20-40); MANUAL DIFF FLAG SCAN; Mean Corpuscular Hemoglobin 29.8 pg (27.0-33.0); Mean Corpuscular Volume 87.7 fL (80.0-98.0); Monocytes Absolute Auto 0.6 X10*3/uL (0.1-1.2); Monocytes Percent Auto 3.7 % (2-11); Neutrophils Absolute Auto 13.7 x10*3/uL (2.0-8.3); Neutrophils Percent Auto 88.2 % (45-73); Red Blood Count 4.96 X10*6/uL (4.20-5.50); Red Cell Distribution Width 12.8 % (11.0-16.0)
[2022-03-26 21:18] LABS: COVID-19 Test Negative (Negative); IDNOW Serial# 16C4AD1C
[2022-03-26 21:20] LABS: B Type Natriuretic Peptide 46 pg/mL (<100); Troponin-I High Sensitivity 4.2 ng/L (<3.5-17.0)
[2022-03-26 21:23] LABS: Alanine Aminotransferase 17 U/L (0-31); Albumin Level 4.2 g/dL (3.5-5.0); Alkaline Phosphatase 91 U/L (39-117); Anion Gap 17 (12-20); Aspartate Amino Transferase 26 U/L (5-31); Bilirubin Total 0.7 mg/dL (0.0-1.0); Blood Urea Nitrogen 18 mg/dL (9-16); Calcium 9.5 mg/dL (8.4-10.2); Carbon Dioxide 21 mmol/L (22-29); Chloride 108 mmol/L (96-108); Creatinine Clr Calc Pharmacy 45.5; Estimated Glomerular Filt Rate > 60; Glucose Random 143 mg/dL (60-115); Potassium 4.5 mmol/L (3.3-5.1); Sodium 141 mmol/L (135-145); Total Protein 7.7 g/dL (6.5-8.0)
[2022-03-26 21:28] LABS: White Blood Count 15.5 X10*3/uL (4.8-10.8)
[2022-03-26 21:29] LABS: SLIDE REVIEW VERIFIED
[2022-03-26 21:37] LABS: D Dimer High Sensitivity 5228 NG/ML
[2022-03-26] MEDS: Morphine Sulfate 4 MG/ML CARTRIDGE IVPUSH (23:26)
[2022-03-27 00:40] VITALS: PULSE 109; RESP 18; O2SAT 93
[2022-03-27] MEDS: iohexoL 350 MG/ML 100 ML INFUS..BTL IV (00:41)
[2022-03-27] MEDS: Morphine Sulfate 4 MG/ML CARTRIDGE 2 MG IVPUSH (01:55)
[2022-03-27] MEDS: ondansetron HCL 4 MG/2 ML VIAL IVPUSH (01:56)
[2022-03-27 02:14] LABS: Appearance Urine HAZY; Color Urine YELLOW; Glucose Urine UA NEG (NEG); Leukocyte Esterase Urine 1+ (NEG); Nitrite Urine POS (NEG); PH 6.5 (5.0-8.0); Specific Gravity - Urine 1.015 (1.005-1.025); UACC Culture Trigger YES; Urine Blood TRACE (NEG); Urine Ketones NEG (NEG); Urine Protein NEG (NEG-TRACE)
[2022-03-27 02:23] LABS: Bacteria Urine 4+ /LPF; Squamous Epithelial Cell Urine TRACE /LPF
[2022-03-27 02:24] LABS: WBC Clumps Urine NOTED
--- NOTE | 2022-03-27 03:14 | PC.NURSE ---
CALL PLACED TO [facility] [place] @ THIS TIME @ JOSE MARIA REQUEST WAIT TIME APPROX 1 MINUTE PER RECORDING MICHELLE ANSWERS AND ASKS ME TO HOLD FOR AN RN TO TAKE OVER THIS CALL ERNESTO TAKES OVER THIS CALL AND ASKS THE NATURE OF TRANSFER... TRAUMATIC FALL PER JOSE MARIA [place]LE[place]AS ASKS PT NAME AND CALL BACK NUMBER THEN STATES SHE WILL CALL US BACK
[2022-03-27 03:18] VITALS: PULSE 96; RESP 17; O2SAT 95
[2022-03-27] MEDS: cefTRIAXone sodium 1 GM in 0.9 % Sodium Chloride 50 ML IV (03:34)
[2022-03-27 03:41] LABS: C Reactive Protein 0.04 mg/dL (< or = 0.50)
[2022-03-27 03:52] LABS: Lactic Acid 2.9 mmol/L (0.5-2.0)
--- NOTE | 2022-03-27 03:52 | PC.NURSE ---
ERNESTO FROM [facility] PT TX LINE CALLS US BACK @ THIS TIME JOSE MARIA TAKES OVER CALL RIGHT AWAY
[2022-03-27 04:12] VITALS: PULSE 93; RESP 18; O2SAT 95
[2022-03-27 04:15] VITALS: BP 154/77; PULSE 93; RESP 24; O2SAT 97
--- NOTE | 2022-03-27 04:39 | PC.NURSE ---
report called to [facility] ER transfer line. spoke to MORALES chicas to give report.
--- NOTE | 2022-03-27 05:00 | PC.NURSE ---
posterior long arm splint done by PA, +CSM to fingers
[2022-03-27 05:35] LABS: Reflex Lactate? Lactic Acid Added
== END 2022-03-27 05:28 | disposition short-term general hospital (02) ==
PROVIDERS: Physician Assistant; Emergency Provider Emergency Medicine
DX: S52.025A Nondisplaced fracture of olecranon process without intraarticular extension of left ulna, initial encounter for closed fracture (principal); S22.080A Wedge compression fracture of T11-T12 vertebra, initial encounter for closed fracture; S22.060A Wedge compression fracture of T7-T8 vertebra, initial encounter for closed fracture; S00.12XA Contusion of left eyelid and periocular area, initial encounter; S40.022A Contusion of left upper arm, initial encounter; W01.0XXA Fall on same level from slipping, tripping and stumbling without subsequent striking against object, initial encounter; N39.0 Urinary tract infection, site not specified; E87.2 Acidosis; R60.0 Localized edema; R00.0 Tachycardia, unspecified; I10 Essential (primary) hypertension; E78.5 Hyperlipidemia, unspecified; Y93.89 Activity, other specified; Y92.129 Unspecified place in nursing home as the place of occurrence of the external cause; Y99.9 Unspecified external cause status; Z20.822 Contact with and (suspected) exposure to COVID-19; Z79.02 Long term (current) use of antithrombotics/antiplatelets
CPT/HCPCS: 36415; 70450; 71250; 71275; 72125; 73030; 73080; 73110; 73130; 74176; 80053; 81001; 82550; 83605; 83735; 83880; 84484; 85025; 85379; 86140; 87040; 87086; 87635; 93005; 93970; 96365; 96375; 96376; 99285; J0696; J2270; J2405; Q9967

== ENCOUNTER 2022-06-27 16:06 | Emergency (ER) | payer MEDICARE, SELFPAY ==
--- NOTE | ~2022-06-27 | US_ITS ---
EXAMINATION: US VENOUS ULTRASOUND WITH DOPPLER LOWER EXTREMITY, BILATERAL CLINICAL INFORMATION: Lower extremity edema and swelling. Question DVT. COMPARISON: Bilateral partially venous ultrasound 01/18/2021 TECHNIQUE: Ultrasound of the deep veins is performed from the hip to the calf with compression sonography and color and pulse Doppler assessment. Spectral analysis with color-flow imaging is performed. FINDINGS: RIGHT: There is normal venous compression and respiratory variation and augmented flow. The visualized common femoral vein, superficial femoral vein, profunda femoral vein, popliteal vein, and the trifurcation region shows no evidence of deep venous thrombosis. LEFT: Hypoechoic thrombus identified in the left common femoral vein, proximal and mid femoral vein, popliteal vein as well as the distal saphenous vein. The distal segment of the femoral vein appears patent. There is additional thrombus within the left popliteal vein. Calf veins not seen. US/US venous duplex LE BI IMPRESSION: 1. Exam positive for deep venous thrombosis in the left common femoral vein, proximal to mid segments of the femoral vein, popliteal vein, and distal greater saphenous vein. 2. No evidence of DVT in the right lower extremity. 3. Calf veins not seen.
[2022-06-27 16:22] VITALS: BP 144/66; BP 163/93; PULSE 107; PULSE 95; RESP 16; TEMP 36.9; O2SAT 98; BMI 26.7
--- NOTE | 2022-06-27 16:34 | PC.NURSE ---
Addendum entered by Karen Odom 06/27/22 19:17: Patient was connected to playground monitor, vitals were taken and were at her basedline. RN palpate distal pedi pulses bilaterally and were +. Original Note: Patient came in from [facility], Patient's son reported patient missed her doctor appointment to follow-up her bilateral edema and doctor was concern about dVT. Patient vitals are stable. Patient needs community planner.
--- NOTE | 2022-06-27 16:53 | ECG_ITS ---
Test Reason : SWOLLEN LEGS Blood Pressure : / mmHG Vent. Rate : 096 BPM Atrial Rate : 096 BPM P-R Int : 156 ms QRS Dur : 062 ms QT Int : 342 ms P-R-T Axes : 047 -28 028 degrees QTc Int : 432 ms Sinus rhythm with Premature supraventricular complexes Inferior infarct (cited on or before 19-OCT-2021) Possible Anterior infarct (cited on or before 19-OCT-2021) Abnormal ECG When compared with ECG of 26-MAR-2022 19:37, Premature supraventricular complexes are now Present Referred By: Arlene Triana Electronically Signed By:ROMARIO ONTIVEROS
--- NOTE | 2022-06-27 16:55 | ED_ITS ---
HPI - General Adult General Chief complaint: General Medical Stated complaint: dejah. leg edema Time Seen by Provider: 06/27/22 16:40 Source: patient and family Mode of arrival: ambulatory Limitations: other (Deaf mute) History of Present Illness HPI narrative: Patient comes to the emergency room accompanied by her son. Patient is coming from [facility]. Patient is deaf mute, wants her son to interpret. One week ago, patient started having new onset lower extremity edema and a bit of redness. Patient was prescribed 20 mg of Lasix and a cephalosporin. Patient states that her legs have not improved. Patient has no significant pain. The family is concerned that the patient was scheduled for ultrasound to rule out DVT 3 days ago, but the patient was unable to go to her appointment due to transportation issues. Patient denies chest pain, no shortness of breath, denies orthopnea. Related Data Home Medications Medication Instructions Recorded Confirmed enalapril maleate 20 mg tablet 40 mg PO DAILY 06/26/21 09/22/21 amlodipine 5 mg tablet 1 tab PO DAILY 03/27/22 03/27/22 Previous Rx's Medication Instructions Recorded levothyroxine 88 mcg tablet 88 mcg PO DAILY #90 tabs 02/12/21 morgan walker with seat, brakes #1 ea 03/21/21 and front wheels alendronate 70 mg tablet 70 mg PO QWEEK 90 days #13 tabs 05/29/21 rosuvastatin 10 mg tablet (Crestor) 10 mg PO DAILY #90 tabs 09/22/21 acetaminophen 500 mg capsule 500 mg PO QID PRN fever or pain 10/19/21 #20 caps apixaban 5 mg tablet See Rx Instructions .Route 06/27/22 .COMPLEX #70 tabs Allergies Allergy/AdvReac Type Severity Reaction Status Date / Time No Known Allergies Allergy Verified 09/22/21 15:04 [No Known Allergies*] Review of Systems Review of Systems: Constitutional : No Weight loss, No Fever, No Chills, No Night Sweats, No Fatigue, No Malaise ENT/Mouth : No Hearing loss, No Ear Pain, No Nasal Congestion, No Sinus Pain, No Hoarseness, No sore throat, No Rhinorrhea, No Swallowing Difficulty Eyes: No Eye Pain, No Swelling, No Redness, No Foreign Body, No Discharge, No Vision Changes Cardiovascular : No Chest Pain, No SOB, No Dyspnea on Exertion, No Orthopnea, no palpitations, complaining of lower extremity edema not improving with Lasix Respiratory : No Cough, No Sputum, No Wheezing, No Smoke Exposure, No Dyspnea Gastrointestinal : No Nausea, No Vomiting, No Diarrhea, No Constipation, No abdominal Pain, No Hematochezia, No Melena Genitourinary : no irregular bleeding, No Dysuria, No Urinary Frequency, No Hematuria, No Urinary Incontinence, No Urgency, No Flank Pain, No Urinary Flow Changes, No Hesitancy Musculoskeletal : No joint pain, No Myalgias, No Joint Swelling Skin : No Skin Lesions, No rash Neuro : No Weakness, No Numbness, No Paresthesias, No Loss of Consciousness, No Dizziness, No Headache Psych : No Anxiety/Panic, No Depression, No SI/HI/AH/VH, No Social Issues, Heme/Lymph: No Bruising, No Bleeding,No Lymphadenopathy Endocrine : No Polyuria, No Polydipsia, No Temperature Intolerance [facility] Past Medical History Medical History (Updated 06/27/22 @ 19:50 by Arlene Triana MD) Acquired hypothyroidism Atrial arrhythmia Deaf-mutism Dyslipidemia Essential hypertension Generalized anxiety disorder Hypertension Osteoporosis Right hip pain Surgical History History of hernia repair History of hip surgery History of hysterectomy Family History Family History Father Myocardial infarction CVD (cardiovascular disease) Mother Unknown family medical history Son No problems noted. Son No problems noted. Daughter No problems noted. Social History Social History Alcohol intake: never Patient Tobacco Use Status: Never used Tobacco Use of substances other than those prescribed or required for medical reasons: No Advance Directives: Yes Advance Directives Information Provided: No Advance Directives on File: No service: No Current occupational status: retired Physical Exam ED Vital Signs: Vital Signs - 24 hr 06/27/22 16:22 06/27/22 19:00 06/27/22 18:00 Temperature 98.4 F 98.3 F Pulse Rate 95 93 Pulse Rate [Bilateral Apical] 107 H Respiratory Rate 16 17 Blood Pressure 144/66 H 140/64 H Pulse Oximetry 98 97 Oxygen Delivery Method Room Air Room Air BMI result Body Mass Index 26.7 Const Other: Appearance: Alert. Oriented X3. No acute distress. Patient is deaf mute Eyes: Pupils equal, round and reactive to light. ENT: Pharynx normal. Neck: Normal inspection. Neck supple. No lymph nodes noted. No crepitus CVS: Normal heart rate and rhythm. Pulses normal. Normal S1 and S2 Respiratory: No respiratory distress. Breath sounds normal. No Wheezing. No rales Abdomen: Soft and nontender. No rigidity. No distention. Skin: Skin warm and dry. Normal skin color. Normal skin turgor. Extremities: +3 pitting edema bilaterally, mild patches of erythema in the left leg anteriorly distally,. No Lacerations. No Rash Neuro: Oriented X 3. No motor deficit. No sensory deficit. Moving all extremities. No slurred speech. CN 2 through 12 grossly intact Psych: calm, cooperative, normal affect Course Course Course Narrative: all Of patient's labs and imaging pending. Patient's DVT study is positive, patient has a DVT in the left common femoral vein, proximal to the mid segments of the femoral vein, popliteal vein and distal greater saphenous vein I discussed the patient with Dr. Jorge. Patient will be started on either Eliquis or Xarelto. Patient does not need follow-up with Dr. Jorge. I discussed with the patient and her health bundle clerk, her son the risks versus benefits of being on a blood thinner, everything was explained to them including to return to the emergency room if she has any GI bleed, hematuria, or any falls or head injury. First dose of Eliquis was given in the emergency room. Medical Decision Making Lab Data Result diagrams: 06/27/22 17:24 06/27/22 17:24 Labs: Lab Results 06/27/22 06/27/22 06/27/22 Range/Units 17:24 17:24 17:24 WBC 8.9 (4.8-10.8) X10*3/uL RBC 4.41 (4.20-5.50) X10*6/uL Hgb 12.5 (12.0-16.0) g/dl Hct 38.3 (37.0-47.0) % MCV 86.8 (80.0-98.0) fL MCH 28.3 (27.0-33.0) pg MCHC 32.6 (31.0-35.0) g/dl RDW 13.5 (11.0-16.0) % Plt Count 301 D (160-400) X10*3/uL MPV 9.4 (9.4-12.3) fL Immature Gran % (Auto) 0.7 H (0.0-0.4) % Neut % (Auto) 68.1 (45-73) % Lymph % (Auto) 20.9 (20-40) % [place] % (Auto) 8.7 (2-11) % Eos % (Auto) 1.1 (0-4) % Baso % (Auto) 0.5 (0-2) % Lymph # (Auto) 1.9 (1.2-4.9) X10*3/uL [place] # (Auto) 0.8 (0.1-1.2) X10*3/uL Eos # (Auto) 0.1 (0.0-0.4) X10*3/uL Baso # (Auto) 0.0 (0.0-0.2) X10*3/uL Abs Immat Gran (auto) 0.06 H (0.00-0.03) X10*3/uL Absolute Neuts (auto) 6.1 (2.0-8.3) x10*3/uL Absolute Nucleated RBC 0.000 (0.0-0.012) X10*3/uL Nucleated RBC % (auto) 0.0 (0.0-0.2) /100WBC Sodium 140 (135-145) mmol/L Potassium 3.8 (3.3-5.1) mmol/L Chloride 108 (96-108) mmol/L Carbon Dioxide 19 L (22-29) mmol/L Anion Gap 17 (12-20) BUN 13 (9-16) mg/dL Creatinine 0.65 (0.5-1.4) mg/dL Estim Creat Clear Calc 52.1 Estimated GFR > 60 Random Glucose 107 (60-115) mg/dL Calcium 8.5 D (8.4-10.2) mg/dL Total Bilirubin 0.6 (0.0-1.0) mg/dL Direct Bilirubin 0.2 (0.0-0.5) mg/dL AST 13 D (5-31) U/L ALT 6 (0-31) U/L Alkaline Phosphatase 109 (39-117) U/L B-Natriuretic Peptide 73 (<100) pg/mL Total Protein 6.3 L (6.5-8.0) g/dL Albumin 3.5 (3.5-5.0) g/dL TSH (0.32-4.0) uIU/mL 06/27/22 Range/Units 17:24 WBC (4.8-10.8) X10*3/uL RBC (4.20-5.50) X10*6/uL Hgb (12.0-16.0) g/dl Hct (37.0-47.0) % MCV (80.0-98.0) fL MCH (27.0-33.0) pg MCHC (31.0-35.0) g/dl RDW (11.0-16.0) % Plt Count (160-400) X10*3/uL MPV (9.4-12.3) fL Immature Gran % (Auto) (0.0-0.4) % Neut % (Auto) (45-73) % Lymph % (Auto) (20-40) % [place] % (Auto) (2-11) % Eos % (Auto) (0-4) % Baso % (Auto) (0-2) % Lymph # (Auto) (1.2-4.9) X10*3/uL [place] # (Auto) (0.1-1.2) X10*3/uL Eos # (Auto) (0.0-0.4) X10*3/uL Baso # (Auto) (0.0-0.2) X10*3/uL Abs Immat Gran (auto) (0.00-0.03) X10*3/uL Absolute Neuts (auto) (2.0-8.3) x10*3/uL Absolute Nucleated RBC (0.0-0.012) X10*3/uL Nucleated RBC % (auto) (0.0-0.2) /100WBC Sodium (135-145) mmol/L Potassium (3.3-5.1) mmol/L Chloride (96-108) mmol/L Carbon Dioxide (22-29) mmol/L Anion Gap (12-20) BUN (9-16) mg/dL Creatinine (0.5-1.4) mg/dL Estim Creat Clear Calc Estimated GFR Random Glucose (60-115) mg/dL Calcium (8.4-10.2) mg/dL Total Bilirubin (0.0-1.0) mg/dL Direct Bilirubin (0.0-0.5) mg/dL AST (5-31) U/L ALT (0-31) U/L Alkaline Phosphatase (39-117) U/L B-Natriuretic Peptide (<100) pg/mL Total Protein (6.5-8.0) g/dL Albumin (3.5-5.0) g/dL TSH 0.90 (0.32-4.0) uIU/mL Imaging Data Venous ultrasound: Radiologist's impression: FINDINGS: RIGHT: There is normal venous compression and respiratory variation and augmented flow. The visualized common femoral vein, superficial femoral vein, profunda femoral vein, popliteal vein, and the trifurcation region shows no evidence of deep venous thrombosis. LEFT: Hypoechoic thrombus identified in the left common femoral vein, proximal and mid femoral vein, popliteal vein as well as the distal saphenous vein. The distal segment of the femoral vein appears patent. There is additional thrombus within the left popliteal vein. Calf veins not seen. US/US venous duplex LE IMPRESSION: 1.? Exam positive for deep venous thrombosis in the left common femoral vein, proximal to mid segments of the femoral vein, popliteal vein, and distal greater saphenous vein. 2.? No evidence of DVT in the right lower extremity. 3.? Calf veins not seen. Discharge Plan Discharge Clinical Impression: Deep vein thrombosis (DVT) of femoral vein Patient Disposition: Home, Self-Care Instructions: Deep Vein Thrombosis (ED) Additional Instructions: If you see any blood in the urine or in the stool, you need to return to the emergency room. If you have any fall, or sustain any head injury, you also need to return to the emergency room immediately. Please follow-up with your primary care physician tomorrow. If you have any worsening or new symptoms, please re turn to the emergency room or call 911 Prescriptions: New apixaban 5 mg tablet See Rx Instructions .ROUTE .COMPLEX Qty: 70 0RF Rx Instructions: 5 mg ;For the 1st 7 days, take 10 mg b.i.d.. Then, take 5 mg b.i.d. No Action levothyroxine 88 mcg tablet 88 mcg PO DAILY Qty: 90 3RF (DME) morgan walker with seat, brakes and front wheels See Rx Instructions .Route .MEDSUPPLY Qty: 1 0RF Rx Instructions: As directed alendronate 70 mg tablet 70 mg PO QWEEK 90 Days Qty: 13 1RF acetaminophen 500 mg capsule 500 mg PO QID PRN (Reason: fever or pain) Qty: 20 0RF amlodipine 5 mg tablet 1 tab PO DAILY rosuvastatin [Crestor] 10 mg tablet 10 mg PO DAILY Qty: 90 4RF enalapril maleate 20 mg tablet 40 mg PO DAILY
[2022-06-27 17:29] LABS: MANUAL DIFF FLAG NO
--- NOTE | 2022-06-27 17:30 | PC.NURSE ---
iv inserted, labs drawn
[2022-06-27 17:39] LABS: Basophils Percent Auto 0.5 % (0-2); Eosinophils Absolute Auto 0.1 X10*3/uL (0.0-0.4); Eosinophils Percent Auto 1.1 % (0-4); Hematocrit 38.3 % (37.0-47.0); Hemoglobin 12.5 g/dl (12.0-16.0); Imm Gran Abs Auto 0.06 X10*3/uL (0.00-0.03); Imm Gran Pct Auto 0.7 % (0.0-0.4); Lymphocytes Absolute Auto 1.9 X10*3/uL (1.2-4.9); Lymphocytes Percent Auto 20.9 % (20-40); Mean Corpuscular HGB Conc 32.6 g/dl (31.0-35.0); Mean Corpuscular Hemoglobin 28.3 pg (27.0-33.0); Mean Corpuscular Volume 86.8 fL (80.0-98.0); Mean Platelet Volume 9.4 fL (9.4-12.3); Monocytes Absolute Auto 0.8 X10*3/uL (0.1-1.2); Monocytes Percent Auto 8.7 % (2-11); Neutrophils Absolute Auto 6.1 x10*3/uL (2.0-8.3); Neutrophils Percent Auto 68.1 % (45-73); Platelet Count 301 X10*3/uL (160-400); Red Blood Count 4.41 X10*6/uL (4.20-5.50); Red Cell Distribution Width 13.5 % (11.0-16.0); White Blood Count 8.9 X10*3/uL (4.8-10.8)
[2022-06-27 17:56] LABS: Alanine Aminotransferase 6 U/L (0-31); Albumin Level 3.5 g/dL (3.5-5.0); Alkaline Phosphatase 109 U/L (39-117); Anion Gap 17 (12-20); Aspartate Amino Transferase 13 U/L (5-31); Bilirubin Direct 0.2 mg/dL (0.0-0.5); Bilirubin Total 0.6 mg/dL (0.0-1.0); Blood Urea Nitrogen 13 mg/dL (9-16); Calcium 8.5 mg/dL (8.4-10.2); Carbon Dioxide 19 mmol/L (22-29); Chloride 108 mmol/L (96-108); Creatinine Clr Calc Pharmacy 52.1; Estimated Glomerular Filt Rate > 60; Glucose Random 107 mg/dL (60-115); Potassium 3.8 mmol/L (3.3-5.1); Sodium 140 mmol/L (135-145); Total Protein 6.3 g/dL (6.5-8.0)
[2022-06-27 18:00] VITALS: BP 140/64; PULSE 93; RESP 17; TEMP 36.8; O2SAT 97
[2022-06-27 18:00] LABS: B Type Natriuretic Peptide 73 pg/mL (<100)
[2022-06-27 19:00] VITALS: PULSE 107
[2022-06-27] MEDS: Apixaban 5 MG TABLET 10 MG PO (20:05)
--- NOTE | 2022-06-27 20:41 | PC.NURSE ---
Pt. is alert and oriented, speaking sign language through her son. Pt. being discharged back to assisted living. Medicated with eliquis for d/c per DEC. Also changed patient clothing as she was wet and needing to be washed up. Ambulance called for ride back to [facility]. Pt. resting comfortably in bed, waiting for ride.
== END 2022-06-28 02:30 | disposition home or self-care (01) ==
PROVIDERS: Emergency Provider Emergency Medicine; PCP Family Medicine
DX: I82.412 Acute embolism and thrombosis of left femoral vein (principal); R60.0 Localized edema; I10 Essential (primary) hypertension; E78.5 Hyperlipidemia, unspecified; I25.10 Atherosclerotic heart disease of native coronary artery without angina pectoris; I48.91 Unspecified atrial fibrillation; Z79.899 Other long term (current) drug therapy; Z79.02 Long term (current) use of antithrombotics/antiplatelets
CPT/HCPCS: 36415; 80048; 80076; 83880; 84443; 85025; 93005; 93970; 99284

== ENCOUNTER → 2022-09-03 08:49 | Outpatient (REF) | payer MEDICARE, SELFPAY ==
--- NOTE | 2022-09-03 08:56 | HM_ITS ---
Conclusion: 1. Patient was monitored for total period of 3 days 2. Baseline was normal sinus rhythm with average heart of 81 beats per minute 3. No significant pauses or bradycardia noted 4. Total of 2136 PACs accounting for 0.6% total beats account for occasional PACs 5. Total of 496 isolated PVCs accounting for 0.14% of total beats accounting for occasional PVCs 6. Patient reported 1 event that correlated with sinus rhythm MTDD
--- NOTE | 2022-09-03 08:56 | CA_ITS ---
Transthoracic Echocardiogram Patient (Last, First, Middle): Parent, Rupa, Gender: Female Date of : 1935 Age: 87 Procedure Date: 09/03/2022 Procedure Type: Transthoracic Echocardiogram Location: OP Height: 152.4 cm Weight: 62.14 kg BSA: 1.59 m2 Heart Rate: bpm BP: 130 / 78 mmHg Power Press Operator: TO Referring MD: Wang Martel MD Symptoms: I05.9 - Rheumatic mitral valve disease, unspecified Study Quality: Technically Difficult/unable to tolerate ECG Rhythm: Sinus Conclusions: - The left ventricular systolic function is normal. The visually estimated ejection fraction is between 65-70%. - There is moderate mitral annular calcification. - There is mild to moderate mitral valve stenosis. Findings Procedure Information The quality of the study was technically difficult. The study quality is limited by the patients inability to tolerate the test. Left Ventricle Normal left ventricular cavity size. There is normal left ventricular wall thickness. The left ventricular systolic function is normal. The visually estimated ejection fraction is between 65-70%. There is no evidence of regional wall motion abnormalities. Diastolic function is normal for age. Right Ventricle Normal right ventricular cavity size. There is normal right ventricular systolic function. Atria Both atria are normal in size. Aortic Valve There is a normal trileaflet aortic valve. There is mild calcification of the aortic valve. There is no aortic valve stenosis. There is no aortic valve regurgitation. Mitral Valve There is moderate mitral annular calcification. There is mild mitral valve regurgitation. There is mild to moderate mitral valve stenosis. Pulmonic Valve The pulmonic valve is likely normal. Tricuspid Valve There is trace tricuspid valve regurgitation. There is no evidence of pulmonary hypertension. Great Vessels The asc aorta is normal in size. Venous The inferior vena cava is normal in size and collapses greater than 50% with inspiration. Pericardium/Pleural There is no evidence of pericardial effusion. Prior Study Comparison Changes noted compared to prior study dated: 01/15/2021. Progression of mitral stenosis. Measurements 2D Linear Measurements IVSd: 0.98 0.6-0.9/0.6-1.0 cm LVIDd: 3.11 3.9-5.3/4.2-5.9 cm LVIDd Index: 1.96 2.4-3.2/2.2-3.1 cm/m2 LVIDs: 2.09 2.0-3.6 cm LVPWd: 0.87 0.7-1.1 cm LA Diam: 3.20 2.7-3.8/3.0-4.0 cm LAIDs Index: 2.01 1.5-2.3 cm/m2 LV Mass: 96.08 67-162/88-224 g LV Mass Index: 60.43 43-95/49-115 g/m2 LVOT Diam: 1.80 3.0+(-)1.3 cm Mitral Valve MV VTI: 0.31 MV Pk Marino: 1.35 MV Mn Marino: 0.88 MV Pk Grad: 7.00 MV Mn Grad: 4.00 MV Pk E: 1.11 MV PK A: 1.02 MV Decel Time: 189.00 E/A: 1.10 E'Lateral: 6.53 E'Medial: 6.20 E/E' Med: 17.90 E/E' Lat: 17.00 PHT: 55.00 MVA PHT: 4.00 MVA Continuity: 1.68 Decel [place]: 5.91 LVOT LVOT Pk Marino: 1.04 LVOT Mn Marino: 0.70 LVOT VTI: 0.20 LVOT Pk Grad: 4.00 LVOT Mn Grad: 2.00 LVOT Diam: 1.80 LVOT Area: 2.54 Diastolic Function MV Pk E: 1.11 MV Pk A: 1.02 E/A: 1.10 E'Medial: 6.20 E/E' Med: 17.90 E' Laterial: 6.53 E/E' Lat: 17.00 Tricuspid Valve TR Pk Marino: 2.09 TR Pk Grad: 17.00 RA Press: 3.00 RVSP: 20.00 Great Vessels Aorta Sinus of Valsalva: 2.80 2.0-3.5 cm Ao Asc: 3.40 2.1-3.4 cm Updated in Other Vendor System with Status of Final Wang Martel MD electronically signed on 09/05/2022 9:57:13 AM with status of Final
== END ==
LOC: HO.CARD 08:49
PROVIDERS: PCP Family Medicine; Visit Provider Internal Medicine
DX: I49.8 Other specified cardiac arrhythmias (principal); I05.9 Rheumatic mitral valve disease, unspecified
CPT/HCPCS: 93242; 93306

== ENCOUNTER → 2022-11-16 12:40 | Outpatient (BNVA) | payer MEDICARE, SELFPAY | PROVIDERS: PCP Family Medicine; Referring Provider Family Medicine; Visit Provider Internal Medicine | DX: I49.8 Other specified cardiac arrhythmias (principal); I49.1 Atrial premature depolarization; I05.9 Rheumatic mitral valve disease, unspecified; I25.10 Atherosclerotic heart disease of native coronary artery without angina pectoris | CPT/HCPCS: 99212 ==

== ENCOUNTER 2023-05-26 12:32 | Outpatient (REF) | payer MEDICARE, SELFPAY ==
--- NOTE | ~2023-05-26 | XR_ITS ---
EXAMINATION: XR HIP, RIGHT CLINICAL INFORMATION: Right hip pain. COMPARISON: Right hip radiographs dated 03/03/2021. TECHNIQUE: Two views of the right hip. FINDINGS: The patient is status post right hip ORIF showing good anatomic alignment and no evidence for hardware malfunction. There is no acute fracture. 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 The soft tissues are unremarkable. XR/XR hip RT min 2V IMPRESSION: 1. No hardware abnormality. No acute fracture. 2. 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
== END 2023-05-26 12:33 | disposition home or self-care (01) ==
LOC: HO.HHCX 12:32
PROVIDERS: Referring Provider Family Medicine; Visit Provider Student in an Organized Health Care Education/Training Program
DX: M25.551 Pain in right hip (principal)
CPT/HCPCS: 73502

== ENCOUNTER → 2023-07-16 14:21 | Outpatient (BNV) | payer MEDICARE, SELFPAY | PROVIDERS: Visit Provider Internal Medicine Medical Oncology | DX: I82.452 Acute embolism and thrombosis of left peroneal vein (principal) | CPT/HCPCS: 99204; 99213 ==

== ENCOUNTER 2023-07-22 12:19 | Outpatient (REF) | payer MEDICARE, SELFPAY ==
--- NOTE | ~2023-07-22 | US_ITS ---
EXAMINATION: US VENOUS ULTRASOUND WITH DOPPLER LOWER EXTREMITY, LEFT CLINICAL INFORMATION: Follow-up to look for DVT. History of DVT. COMPARISON: Venous ultrasound 06/27/2022. TECHNIQUE: Ultrasound of the deep veins is performed from the hip to the calf with compression sonography and color and pulse Doppler assessment. Spectral analysis with color-flow imaging is performed. FINDINGS: There is no evidence of DVT in the common femoral, proximal femoral, distal femoral, or popliteal veins. There is chronic wall thickening and limited compression in the mid femoral vein which is consistent with sequela of prior DVT. The calf veins are not seen due to body habitus and calf swelling. US/US venous duplex LE LT IMPRESSION: No evidence of acute DVT in the left lower extremity. Wall thickening of the mid femoral vein likely related to sequela of prior DVT.
== END 2023-07-22 12:20 | disposition home or self-care (01) ==
LOC: HO.US 12:19
PROVIDERS: PCP Family Medicine; Visit Provider Internal Medicine Medical Oncology
DX: I82.452 Acute embolism and thrombosis of left peroneal vein (principal)
CPT/HCPCS: 93971

== ENCOUNTER 2023-10-19 08:48 | Outpatient (REF) | payer MEDICARE, SELFPAY ==
--- NOTE | ~2023-10-19 | US_ITS ---
EXAMINATION: US VENOUS ULTRASOUND WITH DOPPLER LOWER EXTREMITY, BILATERAL CLINICAL INFORMATION: Bilateral lower extremity edema COMPARISON: 07/22/2023 and 06/27/2022 TECHNIQUE: Ultrasound of the deep veins is performed from the hip to the calf with compression sonography and color and pulse Doppler assessment. Spectral analysis with color-flow imaging is performed. FINDINGS: RIGHT: There is normal venous compression and respiratory variation and augmented flow. The visualized common femoral vein, superficial femoral vein, profunda femoral vein, popliteal vein, and the trifurcation region shows no evidence of deep venous thrombosis. There is no significant popliteal fossa cyst. LEFT: There is normal venous compression and respiratory variation and augmented flow. The visualized common femoral vein, superficial femoral vein, profunda femoral vein, popliteal vein, and the trifurcation region shows no evidence of deep venous thrombosis. There is no significant popliteal fossa cyst. If the patient's symptoms persist, followup ultrasound in 5 days 7 days might be of value to exclude proximal propagation from a non-visualized calf vein. US/US venous duplex LE BI IMPRESSION: No DVT demonstrated in the bilateral lower extremity.
== END 2023-10-19 08:49 | disposition home or self-care (01) ==
LOC: HO.US 08:48
PROVIDERS: PCP Family Medicine; Visit Provider Internal Medicine Medical Oncology
DX: I82.402 Acute embolism and thrombosis of unspecified deep veins of left lower extremity (principal)
CPT/HCPCS: 93970

== ENCOUNTER 2024-01-06 14:55 | Outpatient (REF) | payer MEDICARE, SELFPAY ==
[2024-01-06 16:04] LABS: MANUAL DIFF FLAG NO
[2024-01-06 16:13] LABS: Basophils Percent Auto 0.5 % (0-2); Eosinophils Absolute Auto 0.1 X10*3/uL (0.0-0.4); Eosinophils Percent Auto 0.9 % (0-4); Hematocrit 41.9 % (37.0-47.0); Hemoglobin 13.8 g/dl (12.0-16.0); Imm Gran Abs Auto 0.04 X10*3/uL (0.00-0.03); Imm Gran Pct Auto 0.5 % (0.0-0.4); Lymphocytes Percent Auto 23.3 % (20-40); Mean Corpuscular HGB Conc 32.9 g/dl (31.0-35.0); Mean Corpuscular Hemoglobin 28.9 pg (27.0-33.0); Mean Corpuscular Volume 87.7 fL (80.0-98.0); Mean Platelet Volume 10.5 fL (9.4-12.3); Monocytes Absolute Auto 0.8 X10*3/uL (0.1-1.2); Monocytes Percent Auto 9.2 % (2-11); Neutrophils Absolute Auto 5.7 x10*3/uL (2.0-8.3); Neutrophils Percent Auto 65.6 % (45-73); Platelet Count 246 X10*3/uL (160-400); Red Blood Count 4.78 X10*6/uL (4.20-5.50); Red Cell Distribution Width 13.1 % (11.0-16.0); White Blood Count 8.7 X10*3/uL (4.8-10.8)
[2024-01-06 16:31] LABS: Anion Gap 11 (12-20); Blood Urea Nitrogen 21 mg/dL (9-16); Calcium 9.3 mg/dL (8.4-10.2); Carbon Dioxide 24 mmol/L (22-29); Chloride 107 mmol/L (96-108); Estimated Glomerular Filt Rate > 60; Glucose Random 112 mg/dL (60-115); Potassium 3.9 mmol/L (3.3-5.1); Sodium 138 mmol/L (135-145)
[2024-01-06 16:49] LABS: TSH reflex Free T4 0.13 uIU/mL (0.32-4.0)
[2024-01-06 17:08] LABS: B Type Natriuretic Peptide 31 pg/mL (<100)
[2024-01-06 17:26] LABS: Free T4 (Free Thyroxine) 1.12 ng/dL (0.71-1.85)
== END 2024-01-06 14:56 | disposition home or self-care (01) ==
LOC: HO.HHCL 14:55
PROVIDERS: Visit Provider Internal Medicine
DX: R60.0 Localized edema (principal)
CPT/HCPCS: 36415; 80048; 83880; 84439; 84443; 85025